=== PATIENT | female | born 1955 | race Caucasian/White ===

== ENCOUNTER → 2020-03-30 09:33 | Outpatient (BNVA) | payer BC, SELFPAY | PROVIDERS: PCP Internal Medicine; Referring Provider Internal Medicine; Visit Provider Internal Medicine | DX: Z76.89 Persons encountering health services in other specified circumstances (principal) ==

== ENCOUNTER 2020-05-10 15:12 | Outpatient (REF) | payer BC, SELFPAY ==
[2020-05-10 15:47] LABS: MANUAL DIFF FLAG NO
[2020-05-10 15:49] LABS: Basophils Percent Auto 0.5 % (0-2); Eosinophils Absolute Auto 0.3 X10*3/uL (0.0-0.4); Eosinophils Percent Auto 3.2 % (0-4); Hematocrit 37.3 % (37-47); Hemoglobin 11.6 g/dl (12.0-16.0); Imm Gran Abs Auto 0.01 X10*3/uL (0.00-0.03); Imm Gran Pct Auto 0.1 % (0.0-0.4); Lymphocytes Absolute Auto 3.4 X10*3/uL (1.2-4.9); Lymphocytes Percent Auto 42.7 % (20-40); Mean Corpuscular HGB Conc 31.1 g/dl (31.0-35.0); Mean Corpuscular Hemoglobin 25.4 pg (27.0-33.0); Mean Corpuscular Volume 81.8 fL (80-98); Mean Platelet Volume 10.6 fL (9.4-12.3); Monocytes Absolute Auto 0.5 X10*3/uL (0.1-1.2); Monocytes Percent Auto 6.5 % (2-11); Neutrophils Absolute Auto 3.8 X10*3/uL (2.0-8.3); Platelet Count 255 X10*3/uL (160-400); Red Blood Count 4.56 X10*6/uL (4.20-5.50); Red Cell Distribution Width 14.6 % (11.0-16.0)
[2020-05-10 16:24] LABS: Alanine Aminotransferase 30 U/L (0-31); Albumin Level 4.2 g/dL (3.5-5.0); Alkaline Phosphatase 74 U/L (39-117); Anion Gap 12 (12-20); Aspartate Amino Transferase 32 U/L (5-31); Bilirubin Total 0.2 mg/dL (0.0-1.0); Blood Urea Nitrogen 25 mg/dL (9-16); C Reactive Protein 0.21 mg/dL (< or = 0.50); Calcium 9.1 mg/dL (8.4-10.2); Carbon Dioxide 29 mmol/L (22-29); Chloride 101 mmol/L (96-108); Cholesterol 226 mg/dL; Estimated Glomerular Filt Rate > 60; Glucose Random 82 mg/dL (60-115); HDL Cholesterol 83 mg/dL; LDL Cholesterol Calculated 123 mg/dl; Potassium 4.5 mmol/l (3.3-5.1); Sodium 137 mmol/L (135-145); Triglycerides 102 mg/dL
[2020-05-10 16:40] LABS: Vitamin D 25-OH Total 18.3 ng/mL (>30)
[2020-05-10 16:44] LABS: Erythrocyte Sedimentation Rate 23 MM/HR (0-20)
== END 2020-05-10 15:13 | disposition home or self-care (01) ==
LOC: HO.LAB 15:12
PROVIDERS: PCP Internal Medicine; Visit Provider Student in an Organized Health Care Education/Training Program
DX: M05.9 Rheumatoid arthritis with rheumatoid factor, unspecified (principal); M81.0 Age-related osteoporosis without current pathological fracture
CPT/HCPCS: 36415; 80053; 80061; 82306; 85025; 85652; 86140

== ENCOUNTER → 2020-07-06 16:22 | Outpatient (BNVA) | payer BC, SELFPAY | PROVIDERS: PCP Internal Medicine; Visit Provider Student in an Organized Health Care Education/Training Program ==

== ENCOUNTER 2020-10-11 09:04 | Outpatient (REF) | payer BC, SELFPAY ==
[2020-10-11 09:45] LABS: MANUAL DIFF FLAG NO
[2020-10-11 09:47] LABS: Basophils Absolute Auto 0.1 X10*3/uL (0.0-0.2); Basophils Percent Auto 0.8 % (0-2); Eosinophils Absolute Auto 0.5 X10*3/uL (0.0-0.4); Eosinophils Percent Auto 6.4 % (0-4); Hematocrit 40.5 % (37-47); Hemoglobin 12.4 g/dl (12.0-16.0); Imm Gran Abs Auto 0.02 X10*3/uL (0.00-0.03); Imm Gran Pct Auto 0.3 % (0.0-0.4); Lymphocytes Absolute Auto 2.1 X10*3/uL (1.2-4.9); Lymphocytes Percent Auto 28.8 % (20-40); Mean Corpuscular HGB Conc 30.6 g/dl (31.0-35.0); Mean Corpuscular Hemoglobin 24.8 pg (27.0-33.0); Mean Platelet Volume 10.3 fL (9.4-12.3); Monocytes Absolute Auto 0.5 X10*3/uL (0.1-1.2); Monocytes Percent Auto 6.3 % (2-11); Neutrophils Absolute Auto 4.2 X10*3/uL (2.0-8.3); Neutrophils Percent Auto 57.4 % (45-73); Platelet Count 270 X10*3/uL (160-400); Red Cell Distribution Width 14.5 % (11.0-16.0); White Blood Count 7.4 X10*3/uL (4.8-10.8)
[2020-10-11 10:20] LABS: Alanine Aminotransferase 13 U/L (0-31); Albumin Level 4.2 g/dL (3.5-5.0); Alkaline Phosphatase 55 U/L (39-117); Anion Gap 11 (12-20); Aspartate Amino Transferase 27 U/L (5-31); Bilirubin Total 0.5 mg/dL (0.0-1.0); Blood Urea Nitrogen 11 mg/dL (9-16); C Reactive Protein 0.07 mg/dL (< or = 0.50); Calcium 9.4 mg/dL (8.4-10.2); Carbon Dioxide 28 mmol/L (22-29); Chloride 105 mmol/L (96-108); Cholesterol 221 mg/dL; Estimated Glomerular Filt Rate > 60; Glucose Random 83 mg/dL (60-115); HDL Cholesterol 83 mg/dL; LDL Cholesterol Calculated 124 mg/dl; Potassium 5.3 mmol/L (3.3-5.1); Sodium 139 mmol/L (135-145); Total Protein 7.1 g/dL (6.5-8.0); Triglycerides 72 mg/dL
[2020-10-11 10:47] LABS: Erythrocyte Sedimentation Rate 12 MM/HR (0-20)
[2020-10-11 10:52] LABS: Reflex LDLD? No
== END 2020-10-11 09:05 | disposition home or self-care (01) ==
LOC: HO.LAB 09:04
PROVIDERS: PCP Internal Medicine; Visit Provider Student in an Organized Health Care Education/Training Program
DX: J44.9 Chronic obstructive pulmonary disease, unspecified (principal)
CPT/HCPCS: 36415; 80053; 80061; 85025; 85652; 86140

== ENCOUNTER 2020-10-15 07:27 | Outpatient (REF) | payer BC, SELFPAY ==
[2020-10-15 09:23] LABS: Uric Acid 5.3 mg/dL (2.4-5.7)
== END 2020-10-15 07:28 | disposition home or self-care (01) ==
LOC: HO.LAB 07:27
PROVIDERS: PCP Internal Medicine; Visit Provider Student in an Organized Health Care Education/Training Program
DX: M05.9 Rheumatoid arthritis with rheumatoid factor, unspecified (principal); M81.0 Age-related osteoporosis without current pathological fracture; M10.9 Gout, unspecified; Z79.899 Other long term (current) drug therapy
CPT/HCPCS: 36415; 84550

== ENCOUNTER 2021-01-13 15:01 | Outpatient (REF) | payer BC, SELFPAY ==
--- NOTE | ~2021-01-13 | MM_ITS ---
EXAMINATION: BONE DENSITOMETRY CLINICAL INDICATION: Rheumatoid arthritis. COMPARISON: None (current study represents initial baseline exam). TECHNIQUE: Using a [employer] DXA System (software version: 13.1) manufactured by [employer], dual-energy x-ray absorptiometry was performed of the lumbar spine and left hip. The images are of good technical quality. Summary results are attached. FINDINGS: AP SPINE L2-L4 (excluding L1): The data of L1-L4 has been changed to exclude the L1 vertebral body, because degenerative changes at this level may cause overestimation of lumbar spine density. BMD 1.133 g/cm2, Z-score 1.2, T-score -0.6, normal. LEFT FEMUR, NECK: BMD 0.727 g/cm2, Z-score -0.6, T-score -2.2, osteopenia. LEFT FEMUR, TOTAL: BMD 0.770 g/cm2, Z-score -0.5, T-score -1.9, osteopenia. IDENTIFIED RISK FACTORS: Menopause, height loss, osteoporosis, family history (parent hip fracture), rheumatoid arthritis. HISTORY OF FRACTURE: None listed. MEDICATIONS: Vitamin D. MM/XR DEXA axial skeleton IMPRESSION: 1. DIAGNOSIS: Osteopenia based on the lowest T-score value of -2.2 in the femoral neck applying World Health Organization criteria. 2. 10-YEAR FRACTURE RISK PREDICTION, FRAX: Major osteoporotic fracture (clinical spine, forearm, hip or shoulder) 26.4%. Hip fracture 5.3%. 3. Treatment Recommendations: NOF guidelines recommend consideration for treatment in postmenopausal women and men age 50 and older presenting with the following: -A hip or vertebral (clinical or morphometric) fracture. -T-score less than or equal to -2.5 at the femoral neck or spine after appropriate evaluation to exclude secondary causes. -Low bone mass at the hip or spine and a 10-year fracture probability by FRAX of greater than or equal to 3% for hip fracture or greater than or equal to 20% for major osteoporotic fracture based on the [place] adapted WHO algorithm. 4. Other Recommendations: All treatment decisions require clinical judgment and consideration of individual patient factors, including patient preferences, comorbidities, previous drug use, risk factors not captured in the FRAX model (e.g. frailty, falls, vitamin D deficiency, increased bone turnover, interval significant decline in bone density) and possible under or overestimation of fracture risk by FRAX. Additional medical evaluation for secondary cause of low bone mineral density may be appropriate. FUTURE SCAN RECOMMENDATION: People with diagnosed cases of osteoporosis or at high risk for fracture should have regular bone mineral density tests. For patients eligible for Medicare, routine testing is allowed once every 2 years. The testing frequency can be increased to one year for patients who have rapidly progressing disease, those who are receiving or discontinuing medical therapy to restore bone mass, or have additional risk factors.
[2021-01-13 15:53] LABS: MANUAL DIFF FLAG NO
[2021-01-13 16:06] LABS: Basophils Absolute Auto 0.1 X10*3/uL (0.0-0.2); Basophils Percent Auto 0.3 % (0-2); Eosinophils Absolute Auto 0.2 X10*3/uL (0.0-0.4); Eosinophils Percent Auto 0.9 % (0-4); Hematocrit 34.4 % (37-47); Hemoglobin 10.9 g/dl (12.0-16.0); Imm Gran Abs Auto 0.07 X10*3/uL (0.00-0.03); Imm Gran Pct Auto 0.4 % (0.0-0.4); Lymphocytes Absolute Auto 2.6 X10*3/uL (1.2-4.9); Lymphocytes Percent Auto 14.2 % (20-40); Mean Corpuscular HGB Conc 31.7 g/dl (31.0-35.0); Mean Corpuscular Hemoglobin 25.8 pg (27.0-33.0); Mean Corpuscular Volume 81.3 fL (80-98); Mean Platelet Volume 10.1 fL (9.4-12.3); Monocytes Absolute Auto 1.3 X10*3/uL (0.1-1.2); Monocytes Percent Auto 7.1 % (2-11); Neutrophils Absolute Auto 14.1 X10*3/uL (2.0-8.3); Neutrophils Percent Auto 77.1 % (45-73); Platelet Count 275 X10*3/uL (160-400); Red Blood Count 4.23 X10*6/uL (4.20-5.50); Red Cell Distribution Width 14.9 % (11.0-16.0); White Blood Count 18.3 X10*3/uL (4.8-10.8)
[2021-01-13 16:21] LABS: Alanine Aminotransferase 21 U/L (0-31); Albumin Level 4.1 g/dL (3.5-5.0); Alkaline Phosphatase 51 U/L (39-117); Anion Gap 11 (12-20); Aspartate Amino Transferase 24 U/L (5-31); Bilirubin Total 0.5 mg/dL (0.0-1.0); Blood Urea Nitrogen 17 mg/dL (9-16); C Reactive Protein 2.77 mg/dL (< or = 0.50); Calcium 9.3 mg/dL (8.4-10.2); Carbon Dioxide 28 mmol/L (22-29); Chloride 104 mmol/L (96-108); Estimated Glomerular Filt Rate > 60; Glucose Random 100 mg/dL (60-115); Potassium 5.2 mmol/L (3.3-5.1); Sodium 138 mmol/L (135-145); Total Protein 6.8 g/dL (6.5-8.0)
[2021-01-13 16:57] LABS: Erythrocyte Sedimentation Rate 18 MM/HR (0-20)
== END 2021-01-13 15:02 | disposition home or self-care (01) ==
LOC: HO.MAMMO 15:01
PROVIDERS: PCP Student in an Organized Health Care Education/Training Program; Visit Provider Student in an Organized Health Care Education/Training Program
DX: Z13.820 Encounter for screening for osteoporosis (principal); Z78.0 Asymptomatic menopausal state; M05.9 Rheumatoid arthritis with rheumatoid factor, unspecified; Z79.899 Other long term (current) drug therapy
CPT/HCPCS: 36415; 77080; 80053; 85025; 85652; 86140

== ENCOUNTER → 2021-01-18 07:46 | Outpatient (BNVA) | payer BC, SELFPAY | PROVIDERS: PCP Internal Medicine; Visit Provider Nurse Practitioner Family ==

== ENCOUNTER 2021-01-18 08:35 | Outpatient (REF) | payer BC, SELFPAY ==
--- NOTE | ~2021-01-18 | US_ITS ---
EXAMINATION: US VENOUS ULTRASOUND WITH DOPPLER LOWER EXTREMITY, LEFT CLINICAL INFORMATION: Pain and swelling COMPARISON: None TECHNIQUE: Ultrasound of the deep veins is performed from the hip to the calf with compression sonography and color and pulse Doppler assessment. Spectral analysis with color-flow imaging is performed. FINDINGS: There is normal venous compression and respiratory variation and augmented flow. The visualized common femoral vein, superficial femoral vein, profunda femoral vein, popliteal vein, and the trifurcation region shows no evidence of deep venous thrombosis. There is a small Delgadillo's cyst measuring 1.6 x 0.7 x 2.7 cm. There is a small complex fluid collection measuring 1.6 x 0.8 x 1 cm adjacent to the gastrocnemius muscle. US/US venous duplex LE LT IMPRESSION: No DVT demonstrated in the left lower extremity. Small Delgadillo's cyst and small amount of fluid adjacent to the gastrocnemius muscle.
[2021-01-18 09:47] LABS: MANUAL DIFF FLAG NO
[2021-01-18 09:56] LABS: Basophils Percent Auto 0.4 % (0-2); Eosinophils Absolute Auto 0.2 X10*3/uL (0.0-0.4); Eosinophils Percent Auto 3.3 % (0-4); Hematocrit 33.7 % (37-47); Hemoglobin 10.6 g/dl (12.0-16.0); Imm Gran Abs Auto 0.02 X10*3/uL (0.00-0.03); Imm Gran Pct Auto 0.3 % (0.0-0.4); Lymphocytes Absolute Auto 1.7 X10*3/uL (1.2-4.9); Lymphocytes Percent Auto 23.9 % (20-40); Mean Corpuscular HGB Conc 31.5 g/dl (31.0-35.0); Mean Corpuscular Hemoglobin 25.5 pg (27.0-33.0); Mean Platelet Volume 10.1 fL (9.4-12.3); Monocytes Absolute Auto 0.8 X10*3/uL (0.1-1.2); Monocytes Percent Auto 10.6 % (2-11); Neutrophils Absolute Auto 4.4 X10*3/uL (2.0-8.3); Neutrophils Percent Auto 61.5 % (45-73); Platelet Count 258 X10*3/uL (160-400); Red Blood Count 4.16 X10*6/uL (4.20-5.50); Red Cell Distribution Width 14.6 % (11.0-16.0); White Blood Count 7.2 X10*3/uL (4.8-10.8)
== END 2021-01-18 08:36 | disposition home or self-care (01) ==
LOC: HO.US 08:35
PROVIDERS: PCP Internal Medicine; Visit Provider Nurse Practitioner Family
DX: M79.662 Pain in left lower leg (principal); M05.9 Rheumatoid arthritis with rheumatoid factor, unspecified; M81.0 Age-related osteoporosis without current pathological fracture
CPT/HCPCS: 36415; 85025; 93971

== ENCOUNTER 2021-01-28 12:34 | Outpatient (REF) | payer BC, SELFPAY ==
--- NOTE | ~2021-01-28 | XR_ITS ---
EXAMINATION: X-RAY OF THE LEFT KNEE. CLINICAL INFORMATION: Pain in the left knee. 65-year-old female. COMPARISON: None TECHNIQUE: AP standing views of both knees, lateral and sunrise views of the left knee. FINDINGS: There is a small suprapatellar joint effusion of the left knee. Alignment is maintained. The articular surfaces of both knees are well preserved. Patellofemoral alignment is normal. Arterial vascular calcification is present in the proximal left calf. XR/XR knee standing BI IMPRESSION: Small joint effusion, left knee.
--- NOTE | ~2021-01-28 | XR_ITS ---
EXAMINATION: X-RAY OF THE LEFT KNEE. CLINICAL INFORMATION: Pain in the left knee. 65-year-old female. COMPARISON: None TECHNIQUE: AP standing views of both knees, lateral and sunrise views of the left knee. FINDINGS: There is a small suprapatellar joint effusion of the left knee. Alignment is maintained. The articular surfaces of both knees are well preserved. Patellofemoral alignment is normal. Arterial vascular calcification is present in the proximal left calf. XR/XR knee LT 2V IMPRESSION: Small joint effusion, left knee.
== END 2021-01-28 12:35 | disposition home or self-care (01) ==
LOC: HO.HOSX 12:34
PROVIDERS: Visit Provider Physician Assistant
DX: M17.12 Unilateral primary osteoarthritis, left knee (principal); M25.561 Pain in right knee
CPT/HCPCS: 73560; 73565

== ENCOUNTER → 2021-03-09 13:46 | Outpatient (BNVA) | payer BC, SELFPAY | PROVIDERS: Visit Provider Physician Assistant | DX: M17.12 Unilateral primary osteoarthritis, left knee (principal) | CPT/HCPCS: 20610; J1040 ==

== ENCOUNTER 2021-05-10 11:07 | Outpatient (REF) | payer BC, SELFPAY ==
--- NOTE | ~2021-05-10 | XR_ITS ---
EXAMINATION: XR CHEST CLINICAL INFORMATION: R06.00 - Dyspnea, unspecified COMPARISON: Chest radiographs 05/11/2013; CT abdomen 05/11/2013 TECHNIQUE: 2 views of the chest were obtained. FINDINGS: There is no lobar or segmental airspace consolidation or definite groundglass opacity. Small sliding hiatal hernia is again seen, similar to CT abdomen 2013. The heart is normal in size. The vascularity is normal. The costophrenic sulci are clear. There is no hyperinflation. The hilar and mediastinal contours are unremarkable. No acute bony abnormality. XR/XR chest 2V IMPRESSION: Unremarkable examination.
[2021-05-10 12:47] LABS: MANUAL DIFF FLAG NO
[2021-05-10 12:51] LABS: Basophils Absolute Auto 0.1 X10*3/uL (0.0-0.2); Basophils Percent Auto 0.6 % (0-2); Eosinophils Absolute Auto 0.4 X10*3/uL (0.0-0.4); Hematocrit 40.8 % (37.0-47.0); Hemoglobin 12.6 g/dl (12.0-16.0); Imm Gran Abs Auto 0.01 X10*3/uL (0.00-0.03); Imm Gran Pct Auto 0.1 % (0.0-0.4); Lymphocytes Absolute Auto 1.6 X10*3/uL (1.2-4.9); Lymphocytes Percent Auto 19.5 % (20-40); Mean Corpuscular HGB Conc 30.9 g/dl (31.0-35.0); Mean Corpuscular Hemoglobin 25.7 pg (27.0-33.0); Mean Corpuscular Volume 83.1 fL (80.0-98.0); Mean Platelet Volume 9.8 fL (9.4-12.3); Monocytes Absolute Auto 0.5 X10*3/uL (0.1-1.2); Monocytes Percent Auto 6.4 % (2-11); Neutrophils Absolute Auto 5.4 x10*3/uL (2.0-8.3); Neutrophils Percent Auto 68.4 % (45-73); Platelet Count 173 X10*3/uL (160-400); Red Blood Count 4.91 X10*6/uL (4.20-5.50); Red Cell Distribution Width 17.2 % (11.0-16.0); White Blood Count 7.9 X10*3/uL (4.8-10.8)
[2021-05-10 13:23] LABS: Alanine Aminotransferase 25 U/L (0-31); Alkaline Phosphatase 50 U/L (39-117); Anion Gap 11 (12-20); Aspartate Amino Transferase 22 U/L (5-31); Bilirubin Total 0.3 mg/dL (0.0-1.0); Blood Urea Nitrogen 8 mg/dL (9-16); C Reactive Protein 0.65 mg/dL (< or = 0.50); Calcium 8.4 mg/dL (8.4-10.2); Carbon Dioxide 25 mmol/L (22-29); Chloride 109 mmol/L (96-108); Estimated Glomerular Filt Rate > 60; Glucose Random 84 mg/dL (60-115); Potassium 4.6 mmol/L (3.3-5.1); Sodium 140 mmol/L (135-145); Total Protein 6.6 g/dL (6.5-8.0)
[2021-05-10 13:43] LABS: Erythrocyte Sedimentation Rate 14 MM/HR (0-20)
== END 2021-05-10 11:08 | disposition home or self-care (01) ==
LOC: HO.LAB 11:07
PROVIDERS: Absent Provider Nurse Practitioner Family; PCP Internal Medicine; Visit Provider Internal Medicine
DX: J44.9 Chronic obstructive pulmonary disease, unspecified (principal); M05.9 Rheumatoid arthritis with rheumatoid factor, unspecified; Z87.891 Personal history of nicotine dependence; Z79.899 Other long term (current) drug therapy
CPT/HCPCS: 36415; 71046; 80053; 85025; 85652; 86140

== ENCOUNTER → 2021-05-11 09:54 | Outpatient (BNVA) | payer BC, SELFPAY | PROVIDERS: PCP Internal Medicine; Visit Provider Nurse Practitioner Family ==

== ENCOUNTER 2021-08-19 10:35 | Outpatient (REF) | payer BC, SELFPAY ==
[2021-08-19 12:51] LABS: Cholesterol 177 mg/dL; HDL Cholesterol 54 mg/dL; LDL Cholesterol Calculated 106 mg/dl; Triglycerides 86 mg/dL
[2021-08-19 13:05] LABS: HBS Num1 1.46 mIU/mL (0-7.99); HBc Num1 0.12 S/CO (0.00-0.79); HBsAGNum1 0.24 S/CO (0.00-0.99); Hepatitis B Core Antibody Nonreactive (Nonreactive); Hepatitis B Surface Antigen Negative (Negative); ~Hepatitis B Surface Antibody NONREACTIVE (Nonreactive)
[2021-08-19 13:12] LABS: Hepatitis A Antibody IgM 0.18 Index (0-0.79); ~Hepatitis A Antibody IgM Nonreactive (Nonreactive); ~Hepatitis C Antibody Nonreactive (Nonreactive)
[2021-08-19 13:31] LABS: Reflex LDLD? No
== END 2021-08-19 10:36 | disposition home or self-care (01) ==
LOC: HO.LAB 10:35
PROVIDERS: Nurse Practitioner Family; PCP Internal Medicine; Visit Provider Physician Assistant
DX: M17.12 Unilateral primary osteoarthritis, left knee (principal); M05.9 Rheumatoid arthritis with rheumatoid factor, unspecified
CPT/HCPCS: 20610; 36415; 80061; 86481; 86704; 86706; 86709; 86803; 87340; J1040

== ENCOUNTER 2021-08-30 | Outpatient (REF) | payer BC, SELFPAY ==
[2021-09-01 23:22] LABS: TS Negative Control Passed; TS Panel A 0; TS Panel B 1; TS Positive Control Passed; TSpotTB Negative (Negative)
== END 2021-08-30 00:01 | disposition home or self-care (01) ==
LOC: HO.LAB
PROVIDERS: Visit Provider Nurse Practitioner Family
DX: M05.9 Rheumatoid arthritis with rheumatoid factor, unspecified (principal)
CPT/HCPCS: 36415; 86481

== ENCOUNTER → 2021-08-30 11:07 | Outpatient (BNVA) | payer BC, SELFPAY | PROVIDERS: PCP Internal Medicine; Visit Provider Internal Medicine | DX: Z13.89 Encounter for screening for other disorder (principal) ==

== ENCOUNTER → 2021-09-02 12:21 | Outpatient (BNVA) | payer BC, SELFPAY | PROVIDERS: PCP Internal Medicine; Visit Provider Nurse Practitioner Family | DX: Z13.89 Encounter for screening for other disorder (principal) ==

== ENCOUNTER 2021-11-10 09:59 | Outpatient (REF) | payer BC, SELFPAY ==
[2021-11-10 10:52] LABS: MANUAL DIFF FLAG NO
[2021-11-10 11:27] LABS: Basophils Percent Auto 0.6 % (0-2); Eosinophils Absolute Auto 0.2 X10*3/uL (0.0-0.4); Eosinophils Percent Auto 2.5 % (0-4); Hematocrit 38.7 % (37.0-47.0); Hemoglobin 12.3 g/dl (12.0-16.0); Imm Gran Abs Auto 0.02 X10*3/uL (0.00-0.03); Imm Gran Pct Auto 0.3 % (0.0-0.4); Lymphocytes Absolute Auto 1.7 X10*3/uL (1.2-4.9); Lymphocytes Percent Auto 23.6 % (20-40); Mean Corpuscular HGB Conc 31.8 g/dl (31.0-35.0); Mean Corpuscular Hemoglobin 26.4 pg (27.0-33.0); Mean Platelet Volume 9.8 fL (9.4-12.3); Monocytes Absolute Auto 0.5 X10*3/uL (0.1-1.2); Monocytes Percent Auto 7.2 % (2-11); Neutrophils Absolute Auto 4.8 x10*3/uL (2.0-8.3); Neutrophils Percent Auto 65.8 % (45-73); Platelet Count 245 X10*3/uL (160-400); Red Blood Count 4.66 X10*6/uL (4.20-5.50); Red Cell Distribution Width 13.9 % (11.0-16.0); White Blood Count 7.2 X10*3/uL (4.8-10.8)
[2021-11-10 12:09] LABS: Alanine Aminotransferase 14 U/L (0-31); Albumin Level 3.9 g/dL (3.5-5.0); Alkaline Phosphatase 46 U/L (39-117); Anion Gap 11 (12-20); Anion Gap 9 (12-20); Aspartate Amino Transferase 23 U/L (5-31); Bilirubin Total 0.3 mg/dL (0.0-1.0); Blood Urea Nitrogen 13 mg/dL (9-16); C Reactive Protein 0.62 mg/dL (< or = 0.50); Calcium 8.6 mg/dL (8.4-10.2); Calcium 8.8 mg/dL (8.4-10.2); Carbon Dioxide 27 mmol/L (22-29); Carbon Dioxide 28 mmol/L (22-29); Chloride 104 mmol/L (96-108); Chloride 105 mmol/L (96-108); Cholesterol 201 mg/dL; Estimated Glomerular Filt Rate > 60; Glucose Random 81 mg/dL (60-115); HDL Cholesterol 70 mg/dL; LDL Cholesterol Calculated 122 mg/dl; Potassium 4.9 mmol/L (3.3-5.1); Potassium 5.1 mmol/L (3.3-5.1); Sodium 136 mmol/L (135-145); Sodium 138 mmol/L (135-145); Total Protein 6.4 g/dL (6.5-8.0); Triglycerides 49 mg/dL
[2021-11-10 12:28] LABS: Erythrocyte Sedimentation Rate 18 MM/HR (0-20)
[2021-11-13 13:43] LABS: TS Negative Control Passed; TS Panel A 0; TS Panel B 1; TS Positive Control Passed; TSpotTB Negative (Negative)
== END 2021-11-10 10:00 | disposition home or self-care (01) ==
LOC: HO.LAB 09:59
PROVIDERS: Absent Provider Internal Medicine; PCP Internal Medicine; Visit Provider Nurse Practitioner Family
DX: Z11.1 Encounter for screening for respiratory tuberculosis (principal); E78.00 Pure hypercholesterolemia, unspecified; M05.9 Rheumatoid arthritis with rheumatoid factor, unspecified; R05.9 Cough, unspecified
CPT/HCPCS: 36415; 80048; 80053; 80061; 82306; 84450; 84460; 85025; 85652; 86140; 86481

== ENCOUNTER → 2021-12-19 13:39 | Outpatient (BNVA) | payer BC, SELFPAY | PROVIDERS: PCP Internal Medicine; Visit Provider Physician Assistant | DX: M17.12 Unilateral primary osteoarthritis, left knee (principal) | CPT/HCPCS: 20610; J1040 ==

== ENCOUNTER 2022-03-08 10:19 | Outpatient (REF) | payer BC, SELFPAY ==
[2022-03-08 10:31] LABS: MANUAL DIFF FLAG NO
[2022-03-08 10:47] LABS: Basophils Absolute Auto 0.1 X10*3/uL (0.0-0.2); Basophils Percent Auto 0.6 % (0-2); Eosinophils Absolute Auto 0.2 X10*3/uL (0.0-0.4); Eosinophils Percent Auto 1.9 % (0-4); Hematocrit 39.3 % (37.0-47.0); Hemoglobin 12.4 g/dl (12.0-16.0); Imm Gran Abs Auto 0.04 X10*3/uL (0.00-0.03); Imm Gran Pct Auto 0.4 % (0.0-0.4); Lymphocytes Absolute Auto 1.7 X10*3/uL (1.2-4.9); Lymphocytes Percent Auto 18.8 % (20-40); Mean Corpuscular HGB Conc 31.6 g/dl (31.0-35.0); Mean Corpuscular Hemoglobin 26.5 pg (27.0-33.0); Monocytes Absolute Auto 0.6 X10*3/uL (0.1-1.2); Monocytes Percent Auto 6.7 % (2-11); Neutrophils Absolute Auto 6.6 x10*3/uL (2.0-8.3); Neutrophils Percent Auto 71.6 % (45-73); Platelet Count 341 X10*3/uL (160-400); Red Blood Count 4.68 X10*6/uL (4.20-5.50); White Blood Count 9.3 X10*3/uL (4.8-10.8)
[2022-03-08 11:14] LABS: Alanine Aminotransferase 14 U/L (0-31); Alkaline Phosphatase 55 U/L (39-117); Anion Gap 14 (12-20); Aspartate Amino Transferase 17 U/L (5-31); Bilirubin Total 0.4 mg/dL (0.0-1.0); Blood Urea Nitrogen 10 mg/dL (9-16); C Reactive Protein 8.22 mg/dL (< or = 0.50); Calcium 9.2 mg/dL (8.4-10.2); Carbon Dioxide 26 mmol/L (22-29); Chloride 102 mmol/L (96-108); Estimated Glomerular Filt Rate > 60; Glucose Random 93 mg/dL (60-115); Sodium 137 mmol/L (135-145); Total Protein 6.9 g/dL (6.5-8.0)
[2022-03-08 11:24] LABS: Erythrocyte Sedimentation Rate 78 MM/HR (0-20)
== END 2022-03-08 10:20 | disposition home or self-care (01) ==
LOC: HO.LAB 10:19
PROVIDERS: Visit Provider Nurse Practitioner Family
DX: M05.9 Rheumatoid arthritis with rheumatoid factor, unspecified (principal)
CPT/HCPCS: 36415; 80053; 85025; 85652; 86140

== ENCOUNTER 2022-04-19 08:46 | Outpatient (REF) | payer BC, SELFPAY ==
[2022-04-19 10:31] LABS: MANUAL DIFF FLAG NO
[2022-04-19 10:45] LABS: Basophils Absolute Auto 0.1 X10*3/uL (0.0-0.2); Basophils Percent Auto 0.8 % (0-2); Eosinophils Absolute Auto 0.3 X10*3/uL (0.0-0.4); Eosinophils Percent Auto 3.1 % (0-4); Hematocrit 37.2 % (37.0-47.0); Hemoglobin 11.7 g/dl (12.0-16.0); Imm Gran Abs Auto 0.02 X10*3/uL (0.00-0.03); Imm Gran Pct Auto 0.2 % (0.0-0.4); Lymphocytes Absolute Auto 1.6 X10*3/uL (1.2-4.9); Mean Corpuscular HGB Conc 31.5 g/dl (31.0-35.0); Mean Corpuscular Hemoglobin 26.4 pg (27.0-33.0); Mean Corpuscular Volume 83.8 fL (80.0-98.0); Mean Platelet Volume 10.7 fL (9.4-12.3); Monocytes Absolute Auto 0.5 X10*3/uL (0.1-1.2); Monocytes Percent Auto 6.2 % (2-11); Neutrophils Absolute Auto 5.9 x10*3/uL (2.0-8.3); Neutrophils Percent Auto 70.7 % (45-73); Platelet Count 324 X10*3/uL (160-400); Red Blood Count 4.44 X10*6/uL (4.20-5.50); Red Cell Distribution Width 14.1 % (11.0-16.0); White Blood Count 8.4 X10*3/uL (4.8-10.8)
[2022-04-19 11:37] LABS: Erythrocyte Sedimentation Rate 26 MM/HR (0-20)
[2022-04-19 12:07] LABS: Alanine Aminotransferase 15 U/L (0-31); Aspartate Amino Transferase 23 U/L (5-31); C Reactive Protein 0.25 mg/dL (< or = 0.50); Cholesterol 192 mg/dL; Estimated Glomerular Filt Rate > 60; HDL Cholesterol 75 mg/dL; LDL Cholesterol Calculated 107 mg/dl; Triglycerides 53 mg/dL
[2022-04-19 12:28] LABS: Vitamin D 25-OH Total 42.1 ng/mL (>30)
[2022-04-19 14:43] LABS: Reflex LDLD? No
== END 2022-04-19 08:47 | disposition home or self-care (01) ==
LOC: HO.10HDL 08:46
PROVIDERS: Visit Provider Nurse Practitioner Family
DX: M05.9 Rheumatoid arthritis with rheumatoid factor, unspecified (principal); Z79.899 Other long term (current) drug therapy
CPT/HCPCS: 36415; 80061; 82306; 82565; 84450; 84460; 85025; 85652; 86140

== ENCOUNTER → 2022-07-06 14:44 | Outpatient (BNVA) | payer BC, SELFPAY | PROVIDERS: PCP Internal Medicine; Visit Provider Internal Medicine | DX: Z13.89 Encounter for screening for other disorder (principal) ==

== ENCOUNTER 2022-07-19 09:04 | Outpatient (REF) | payer BC, SELFPAY ==
--- NOTE | ~2022-07-19 | XR_ITS ---
EXAMINATION: XR ELBOW, LEFT CLINICAL INFORMATION: Effusion left elbow. COMPARISON: None available. TECHNIQUE: AP, lateral, and oblique views of the left elbow. FINDINGS: There is no visible acute fracture, dislocation, loose bodies or joint effusion. There is a soft tissue swelling posterior elbow likely olecranon bursitis. XR/XR elbow LT 2V IMPRESSION: Soft tissue swelling posterior elbow likely olecranon bursitis. Otherwise unremarkable.
--- NOTE | ~2022-07-19 | XR_ITS ---
EXAMINATION: XR HIP, RIGHT CLINICAL INFORMATION: Right hip pain. COMPARISON: None available. TECHNIQUE: Two views of the right hip. FINDINGS: The right hip joint space is maintained normal. No visible acute fracture, dislocation or subluxation seen. No bony erosive changes. The soft tissues are normal. XR/XR hip RT min 2V IMPRESSION: Unremarkable right hip exam.
[2022-07-19 11:05] LABS: MANUAL DIFF FLAG NO
[2022-07-19 11:54] LABS: Basophils Absolute Auto 0.1 X10*3/uL (0.0-0.2); Basophils Percent Auto 1.1 % (0-2); Eosinophils Absolute Auto 0.3 X10*3/uL (0.0-0.4); Eosinophils Percent Auto 3.5 % (0-4); Hematocrit 36.5 % (37.0-47.0); Imm Gran Abs Auto 0.03 X10*3/uL (0.00-0.03); Imm Gran Pct Auto 0.4 % (0.0-0.4); Lymphocytes Absolute Auto 1.8 X10*3/uL (1.2-4.9); Lymphocytes Percent Auto 23.9 % (20-40); Mean Corpuscular HGB Conc 30.1 g/dl (31.0-35.0); Mean Corpuscular Hemoglobin 23.6 pg (27.0-33.0); Mean Corpuscular Volume 78.2 fL (80.0-98.0); Mean Platelet Volume 10.8 fL (9.4-12.3); Monocytes Absolute Auto 0.5 X10*3/uL (0.1-1.2); Monocytes Percent Auto 6.6 % (2-11); Neutrophils Absolute Auto 4.9 x10*3/uL (2.0-8.3); Neutrophils Percent Auto 64.5 % (45-73); Platelet Count 317 X10*3/uL (160-400); Red Blood Count 4.67 X10*6/uL (4.20-5.50); Red Cell Distribution Width 15.2 % (11.0-16.0); White Blood Count 7.5 X10*3/uL (4.8-10.8)
[2022-07-19 12:10] LABS: Erythrocyte Sedimentation Rate 20 MM/HR (0-20)
[2022-07-19 12:15] LABS: Alanine Aminotransferase 19 U/L (0-31); Alkaline Phosphatase 47 U/L (39-117); Anion Gap 11 (12-20); Aspartate Amino Transferase 28 U/L (5-31); Bilirubin Total 0.3 mg/dL (0.0-1.0); Blood Urea Nitrogen 9 mg/dL (9-16); C Reactive Protein 0.34 mg/dL (< or = 0.50); Calcium 8.9 mg/dL (8.4-10.2); Carbon Dioxide 28 mmol/L (22-29); Chloride 105 mmol/L (96-108); Estimated Glomerular Filt Rate > 60; Glucose Random 84 mg/dL (60-115); Potassium 5.3 mmol/L (3.3-5.1); Sodium 139 mmol/L (135-145); Total Protein 6.6 g/dL (6.5-8.0)
[2022-07-19 12:17] LABS: Vitamin D 25-OH Total 39.3 ng/mL (>30)
[2022-07-19 12:46] LABS: Amphetamine Screen Urine Not Detected (Not Detect); Barbiturates, Urine Not Detected (Not Detect); Benzodiazepines Screen Urine Not Detected (Not Detect); Cannabinoid Screen Urine Not Detected (Not Detect); Cocaine Screen Urine Not Detected (Not Detect); Fentanyl, urine Not Detected (Not Detect); Opiate Screen Urine Not Detected (Not Detect); Phencyclidine Screen Urine Not Detected (Not Detect)
== END 2022-07-19 09:05 | disposition home or self-care (01) ==
LOC: HO.XRAY 09:04
PROVIDERS: PCP Internal Medicine; Visit Provider Nurse Practitioner Family
DX: M25.422 Effusion, left elbow (principal); M25.551 Pain in right hip; M05.9 Rheumatoid arthritis with rheumatoid factor, unspecified; E55.9 Vitamin D deficiency, unspecified; M70.22 Olecranon bursitis, left elbow; M81.0 Age-related osteoporosis without current pathological fracture; R13.10 Dysphagia, unspecified; Z79.899 Other long term (current) drug therapy
CPT/HCPCS: 73070; 73502; 80053; 80307; 80373; 82306; 85025; 85652; 86140

== ENCOUNTER 2023-03-05 10:44 | Outpatient (AMB) | payer BC, SELFPAY ==
--- NOTE | 2023-03-05 10:45 | MHC.OFFVIS ---
Intake Vital Signs 03/05/23 10:47 Height 4 ft 11 in Weight 143 lb 4.807 oz BMI 28.9 BP 100/66 Blood Pressure Location Lt brachial Position Sitting Pulse 72 Pulse Source Pulse Oximeter Temp 97.4 F Temp Source Skin Pulse Oximetry (%) 98 Oxygen Delivery Method Room Air Intake Visit Reasons: RA Intake Note: Patient presents today to follow up on RA. Patient Financial Representative Required: No Accompanied by: Self / Same As Patient Allergies codeine Allergy (Unknown, Verified 03/05/23 10:49) Rash latex [LATEX] Allergy (Unknown, Verified 03/05/23 10:49) ANGIOEDEMA morphine Allergy (Unknown, Verified 03/05/23 10:49) Vomiting penicillin V Allergy (Unknown, Verified 03/05/23 10:49) Unknown HPI HPI Comments History of Present Illness Details The patient returns today for evaluation of her rheumatoid arthritis, osteoarthritis, and osteoporosis. She remains on Xeljanz 11 mg daily, tramadol 50 mg tablets taking 1 or 2 b.i.d., alendronate 70 mg weekly, naproxen 500 mg b.i.d. p.r.n., and topical diclofenac gel on her hands if needed. She does not notice significant sedation with the tramadol. The patient has had a bit more low back, knee pain, and left shoulder pain in the past few months. She has prior fractures in the ankles and the wrists. She also has had surgery on the right hand she says 5 times. This was apparently a fusion followed by efforts at tendon repairs which were partially successful. She does not notice any side effects with the Xeljanz but admits she has not had any lab work in 6 months. She stopped smoking she said about 4 years ago. She has been on the alendronate since 2020. She has not had any recent fractures. [facility] Medical History COPD (chronic obstructive pulmonary disease) Cough Dyspnea on exertion Seropositive rheumatoid arthritis Surgical History History of hand surgery History of bunionectomy History of appendectomy Family History Mother HTN (hypertension) Father CVD (cardiovascular disease) Maternal Grandmother Cervical cancer Social History (Updated 03/05/23 @ 10:48 by MELISSA Maza) Alcohol intake: current Alcohol intake frequency: holidays/special occasions only Patient Tobacco Use Status: Former Tobacco user Tobacco use type: Cigarette Cigarettes Per Day: 10 Years Smoked: 48 quit 2years ago e-Cigarette/Vaping Use: Never Used Current occupational status: retired Review of Systems Const Details: Some weight gain since smoking cessation. Negative for appetite change, fever, chills, malaise and fatigue Eyes Details: Negative for vision change, dry eyes,headaches and dizziness ENT Details: Negative for hearing change, tinnitus, oral ulcer, nose bleeds and oral dryness. Card Details: Negative chest pain, edema and syncope Resp Details: Negative for SOB, cough and wheezing GI Details: Occasional heartburn. She tends to avoid taking the NSAIDs because of that problem. Negative indigestion/heartburn, nausea, abdominal pain, bowel changes, diarrhea, constipation and bloody stool. Skin/Breast Details: Negative for itching, rash, hives, Raynaud's symptoms, sun sensitivity, and skin cancer Neuro Details: Negative for epilepsy, palsy, stroke, changes in speech, tingling and weakness Psych Details: anxiety, depression seem stable with current treatment. Endo Details: Negative for polyuria and polydypsia Mc/Lymph Details: Negative for excessive bruising or bleeding. Physical Exam Vital Signs: Last Vital Signs Temp 97.4 F 03/05/23 10:47 Pulse 72 03/05/23 10:47 BP 100/66 03/05/23 10:47 Pulse Ox 98 03/05/23 10:47 Oxygen Delivery Method Room Air 03/05/23 10:47 BMI result Body Mass Index 28.9 APPEARANCE: Patient in no acute distress EYES no redness, pupils equal and reactive to light, eyelids normal EXTREMITIES: No edema, no calf tenderness, normal peripheral pulses. JOINT EXAM:?? Cervical Spine: Full range of motion without pain; no tenderness. Thoracic Spine:? No tenderness on palpation. She has some scoliosis. Lumbar Spine:? Full range of motion with mild pain with flexion at 75 degrees. There is some paraspinal muscle tenderness Hands: LEFT: Mild thickening at the 1st 3 MCP joints where there is mild tenderness. There is slight swelling of the 1st 3 MCP joints and these are mildly tender. I do not detect any sensory loss or thenar atrophy. RIGHT: There is thickening at the 1st 3 MCP joints. These are mildly tender although the 1st has been fused. Also fused is the thumb IP joint. Surgical scars are well healed with no signs of infection. She has difficulty opposing the thumb to the 2nd and 3rd fingers. st. Wrists:? LEFT: Limited extension to 30 degrees and to 60 degrees flexion. There is some dorsal prominence suggesting swelling and or subluxation. The wrist has mild tenderness but no erythema or warmth. RIGHT: Right wrist is fixed, previous surgical fusion, bony prominence noted in the center of the dorsal aspect of the hand is a longitudinal so its a structure consistent with surgical hardware. It is not tender. There is no swelling erythema or warmth Healed scar noted over the wrist and dorsum of the hand. Elbows: LEFT: Full range of motion. Tenderness to palpation over lateral epicondyle. Soft tissue swelling noted over the olecranon, no erythema, warmth or tenderness of this area. RIGHT: Full range of motion. Tenderness to palpation over the lateral epicondyle. No swelling, increased warmth or erythema. Shoulders:?? Full range of motion without pain. No tenderness, weakness, swelling, increased warmth or erythema. Hips: LEFT: Full range of motion without pain. No tenderness. RIGHT: Pain with internal and external rotation with referred pain to the lateral hip but not the groin today. Also tenderness to palpation over the bursa. No erythema, swelling, increased warmth or ecchymosis. Knees:? Normal pain-free range of motion without tenderness, swelling, increased warmth or erythema.? There is no effusion or crepitation Ankles:? LEFT: Limited range of motion in dorsiflexion, plantar flexion with mild pain.. No inversion and eversion. No tenderness, swelling, increased warmth or erythema. The ankle has significant valgus deformity. Right: Normal range of motion with some slight valgus deformity but no tenderness or swelling. Feet: RIGHT: Normal range of motion with mild 1st MTP bony enlargement; the 1st MTP and 1st IP joint have been fused. No tenderness, swelling increased warmth or erythema Left: Some valgus in the ankle. Mild instep tenderness. Mild nontender bony enlargement at the 1st MTP joint. Other areas the foot have no tenderness, swelling, rednessor warmth. Tender points:.? No tenderness to digital palpation at the occiput, trapezius, second rib, lateral epicondyle, knees, greater trochanter and gluteal area bilaterally. ? Results Reviewed Results Reviewed: Laboratory Tests 07/19/22 11:03 WBC 7.5 Hgb 11.0 L Lymph # (Auto) 1.8 ESR 20 Creatinine 0.90 AST 28 ALT 19 C-Reactive Protein 0.[address] [address] XRay Report Signed Patient: Jocelyn Martin MR#: [id number] : 1955 Acct:[id number] Age/Sex: 65 / F ADM Date: 01/28/[address]: Gilberto Garcia PA-C Ordering Physician: Gilberto Garcia PA-C Date of Service: 01/28/21 Procedure(s): XR knee LT 2V Accession Number(s): [id number] cc: Gilberto Garcia PA-C~ EXAMINATION: X-RAY OF THE LEFT KNEE. CLINICAL INFORMATION: Pain in the left knee. 65-year-old female. COMPARISON: None TECHNIQUE: AP standing views of both knees, lateral and sunrise views of the left knee. FINDINGS: There is a small suprapatellar joint effusion of the left knee. Alignment is maintained. The articular surfaces of both knees are well preserved. Patellofemoral alignment is normal. Arterial vascular calcification is present in the proximal left calf. XR/XR knee LT 2V IMPRESSION: Small joint effusion, left knee. Dictated By: BRETT ARAGON MD Assessment & Plan Assessment & Plan (1) Age related osteoporosis: Comment: on alendronate since December 2020 Code(s): M81.0 - Age-related osteoporosis without current pathological fracture Qualifiers: Presence of current pathological fracture: without current pathological fracture Qualified Code(s): M81.0 - Age-related osteoporosis without current pathological fracture (2) Seropositive rheumatoid arthritis: Comment: methotrexate-dates unknown Enbrel 08/2015-07/2016 Arava 11/2016- 09/2018 Xeljanz 09/2018- present. Code(s): M05.9 - Rheumatoid arthritis with rheumatoid factor, unspecified (3) Medication monitoring encounter: Comment: Tramadol contract updated 04/19/2022 Code(s): Z51.81 - Encounter for therapeutic drug level monitoring (4) Shoulder pain, left: Code(s): M25.512 - Pain in left shoulder Plan The patient has longstanding RA with deformities and previous surgeries and fractures. She seems to be having a bit more pain in the left shoulder. This could be some rotator cuff impingement and tendinitis the basis of mechanical issues or even some active synovitis. I have ordered an x-ray of the shoulder. Elsewhere I do not really see much in terms of signs of active synovitis. She seems to be tolerating the Xeljanz but we have not had any blood work in 6 months so that needs to be done today. She seems to get some pain relief with the tramadol without adverse effects and she does comply with the prescription so I think it can be continued as before. Additionally the alendronate seems to be tolerated and that should be continued. She is having more low back pain, this is likely due to degenerative disease. She is worried about the right wrist pain but I think this is secondary to old fracture as well as secondary OA from rheumatoid arthritis. It seems to be functional for now so I do not think she needs further procedures for now. Follow-up in 3 months is recommended. Orders: Orders Erythrocyte Sedimentation Rate Today M05.9 - Rheumatoid arthritis with rheumatoid factor, unspecified XR shoulder LT min 2V Today M25.512 - Pain in left shoulder C Reactive Protein Today M05.9 - Rheumatoid arthritis with rheumatoid factor, unspecified Alanine Aminotransferase Today M05.9 - Rheumatoid arthritis with rheumatoid factor, unspecified, Z79.899 - Other veneer glue spreader (current) drug therapy Aspartate Amino Transferase Today M05.9 - Rheumatoid arthritis with rheumatoid factor, unspecified, Z79.899 - Other assisted (current) drug therapy Complete Blood Count Auto Diff Today M05.9 - Rheumatoid arthritis with rheumatoid factor, unspecified, Z79.899 - Other assisted (current) drug therapy Creatinine Today M05.9 - Rheumatoid arthritis with rheumatoid factor, unspecified, Z79.899 - Other veneer glue spreader (current) drug therapy Coding Level of Care Code Est Pt Level 4 (07223) Diagnoses Age-related osteoporosis without current pathological fracture M81.0 Presence of current pathological fracture: without current pathological fracture Seropositive rheumatoid arthritis M05.9 Medication monitoring encounter Z51.81 Shoulder pain, left M25.512
[2023-03-05 10:47] VITALS: BP 100/66; PULSE 72; TEMP 36.3; O2SAT 98; BMI 28.9
== END 2023-03-05 11:29 | disposition home or self-care (01) ==
PROVIDERS: PCP Internal Medicine; Visit Provider Internal Medicine Rheumatology
DX: M05.79 Rheumatoid arthritis with rheumatoid factor of multiple sites without organ or systems involvement (principal); M81.0 Age-related osteoporosis without current pathological fracture; Z51.81 Encounter for therapeutic drug level monitoring; M25.512 Pain in left shoulder
CPT/HCPCS: 99214

== ENCOUNTER → 2023-03-05 10:44 | Outpatient (BNVA) | payer BC, SELFPAY | PROVIDERS: PCP Internal Medicine; Visit Provider Internal Medicine Rheumatology ==

== ENCOUNTER 2023-03-05 11:48 | Outpatient (REF) | payer BC, SELFPAY ==
[2023-03-05 13:41] LABS: MANUAL DIFF FLAG NO
[2023-03-05 13:44] LABS: Basophils Absolute Auto 0.1 X10*3/uL (0.0-0.2); Basophils Percent Auto 0.9 % (0-2); Eosinophils Absolute Auto 0.3 X10*3/uL (0.0-0.4); Eosinophils Percent Auto 3.4 % (0-4); Hematocrit 27.7 % (37.0-47.0); Hemoglobin 8.2 g/dl (12.0-16.0); Imm Gran Abs Auto 0.03 X10*3/uL (0.00-0.03); Imm Gran Pct Auto 0.3 % (0.0-0.4); Lymphocytes Percent Auto 22.7 % (20-40); Mean Corpuscular HGB Conc 29.6 g/dl (31.0-35.0); Mean Corpuscular Hemoglobin 21.1 pg (27.0-33.0); Mean Corpuscular Volume 71.4 fL (80.0-98.0); Mean Platelet Volume 10.4 fL (9.4-12.3); Monocytes Absolute Auto 0.7 X10*3/uL (0.1-1.2); Monocytes Percent Auto 7.9 % (2-11); Neutrophils Absolute Auto 5.6 x10*3/uL (2.0-8.3); Neutrophils Percent Auto 64.8 % (45-73); Platelet Count 319 X10*3/uL (160-400); Red Blood Count 3.88 X10*6/uL (4.20-5.50); Red Cell Distribution Width 15.8 % (11.0-16.0); White Blood Count 8.6 X10*3/uL (4.8-10.8)
[2023-03-05 13:54] LABS: Alanine Aminotransferase 21 U/L (0-31); Aspartate Amino Transferase 26 U/L (5-31); C Reactive Protein 0.19 mg/dL (< or = 0.50); Estimated Glomerular Filt Rate > 60
[2023-03-05 14:23] LABS: Erythrocyte Sedimentation Rate 25 MM/HR (0-20)
== END 2023-03-05 11:49 | disposition home or self-care (01) ==
LOC: HO.10HDL 11:48
PROVIDERS: Visit Provider Internal Medicine Rheumatology
DX: M05.9 Rheumatoid arthritis with rheumatoid factor, unspecified (principal); Z79.899 Other long term (current) drug therapy
CPT/HCPCS: 36415; 82565; 84450; 84460; 85025; 85652; 86140

== ENCOUNTER 2023-03-08 11:06 | Outpatient (REF) | payer BC, SELFPAY ==
[2023-03-08 13:26] LABS: MANUAL DIFF FLAG NO
[2023-03-08 13:32] LABS: Basophils Absolute Auto 0.1 X10*3/uL (0.0-0.2); Basophils Percent Auto 1.1 % (0-2); Eosinophils Absolute Auto 0.2 X10*3/uL (0.0-0.4); Eosinophils Percent Auto 3.6 % (0-4); Hematocrit 28.1 % (37.0-47.0); Hemoglobin 8.2 g/dl (12.0-16.0); Imm Gran Abs Auto 0.02 X10*3/uL (0.00-0.03); Imm Gran Pct Auto 0.3 % (0.0-0.4); Lymphocytes Absolute Auto 1.7 X10*3/uL (1.2-4.9); Lymphocytes Percent Auto 26.3 % (20-40); Mean Corpuscular HGB Conc 29.2 g/dl (31.0-35.0); Mean Corpuscular Hemoglobin 21.4 pg (27.0-33.0); Mean Corpuscular Volume 73.4 fL (80.0-98.0); Mean Platelet Volume 10.5 fL (9.4-12.3); Monocytes Absolute Auto 0.6 X10*3/uL (0.1-1.2); Monocytes Percent Auto 9.3 % (2-11); NRBC Pct Auto 0.3 /100WBC (0.0-0.2); Neutrophils Absolute Auto 3.8 x10*3/uL (2.0-8.3); Neutrophils Percent Auto 59.4 % (45-73); Platelet Count 332 X10*3/uL (160-400); Red Blood Count 3.83 X10*6/uL (4.20-5.50); Red Cell Distribution Width 15.7 % (11.0-16.0); White Blood Count 6.5 X10*3/uL (4.8-10.8)
[2023-03-08 13:45] LABS: Iron 20 mcg/dL (30-160); Percent Iron Saturation 5 % (15-50); Total Iron Binding Capacity 420 mcg/dL (228-428); Unsaturated Iron Binding 400 ug/dL
[2023-03-08 14:12] LABS: Vitamin B12 486 pg/mL (200-900)
== END 2023-03-08 11:07 | disposition home or self-care (01) ==
LOC: HO.10HDL 11:06
PROVIDERS: Visit Provider Internal Medicine Rheumatology
DX: D50.9 Iron deficiency anemia, unspecified (principal)
CPT/HCPCS: 36415; 82607; 83540; 85025; 86880

== ENCOUNTER 2023-06-05 10:01 | Outpatient (AMB) | payer BC, SELFPAY ==
--- NOTE | 2023-06-05 10:03 | MHC.OFFVIS ---
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 Zuñiga, presents today for follow up and test results. Reports [facility] Medical admission early May due to iron deficiency and Covid. 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 Banks, 68 yoF returns today for follow-up of her rheumatoid arthritis, osteoarthritis, and osteoporosis. She remains on Xeljanz 11 mg daily, tramadol 50 mg tablets taking 1 or 2 b.i.d., alendronate 70 mg weekly, naproxen 500 mg b.i.d. p.r.n., and topical diclofenac gel on her hands if needed. She does not notice significant sedation with the tramadol. The patient has had a recent Hospitalization and required a blood transfusion. She has since started Lasix. She is not able to articulate clearly what her diagnosis was but says she was full of fluid . She does not notice any side effects with the Xeljanz She has prior fractures in the ankles and the wrists. She also has had surgery on the right hand she says 5 times. This was apparently a fusion followed by efforts at tendon repairs which were partially successful. --She stopped smoking she said about 4 years ago. She has been on the alendronate since 2020. She has not had any recent fractures. [facility] Medical History (Updated 06/05/23 @ 12:36 by HILDA Jaimes) Generalized osteoarthritis of multiple sites Long-term use of immunosuppressant medication Dyspnea on exertion Seropositive rheumatoid arthritis Cough COPD (chronic obstructive pulmonary disease) Surgical History History of hand surgery History of bunionectomy History of appendectomy Family History Mother HTN (hypertension) Father CVD (cardiovascular disease) Maternal Grandmother Cervical cancer Social History Alcohol intake: current Alcohol intake frequency: holidays/special occasions only Patient Tobacco Use Status: Former Tobacco user Tobacco use type: Cigarette Cigarettes Per Day: 10 Years Smoked: 50 quit 2years ago e-Cigarette/Vaping Use: Never Used Current occupational status: retired Physical Exam Vital Signs: Last Vital Signs Temp 97 F 06/05/23 10:04 Pulse 101 H 06/05/23 10:04 BP 112/74 06/05/23 10:04 Pulse Ox 95 06/05/23 10:04 Oxygen Delivery Method Room Air 06/05/23 10:04 BMI result Body Mass Index 29.4 Assessment & Plan Assessment & Plan (1) Age related osteoporosis: Comment: on alendronate since December 2020 Code(s): M81.0 - Age-related osteoporosis without current pathological fracture Qualifiers: Presence of current pathological fracture: without current pathological fracture Qualified Code(s): M81.0 - Age-related osteoporosis without current pathological fracture (2) Seropositive rheumatoid arthritis: Comment: methotrexate-dates unknown Enbrel 08/2015-07/2016 Arava 11/2016- 09/2018 Xelamira 09/2018- present. Code(s): M05.9 - Rheumatoid arthritis with rheumatoid factor, unspecified (3) Medication monitoring encounter: Comment: Tramadol contract updated 04/19/2022 Code(s): Z51.81 - Encounter for therapeutic drug level monitoring (4) Long-term use of immunosuppressant medication: Code(s): Z79.60 - intermediate card tender (current) use of unspecified immunomodulators and immunosuppressants (5) Generalized osteoarthritis of multiple sites: Code(s): M15.9 - Polyosteoarthritis, unspecified (6) Iron deficiency anemia: Code(s): D50.9 - Iron deficiency anemia, unspecified Plan #SeroPos RA/OA Multiple Joints: The patient has longstanding RA with deformities and previous surgeries and fractures. She has been feeling improved after her recent hospitalization with blood transfusion (May 09 for 9 days). She says no source of bleeding was found to explain the need for infusion. She seems to be tolerating the Xeljanz. She continues with back pain, this is likely due to degenerative disease, and shoulder pain. The right wrist pain is secondary to old fracture as well as secondary OA from rheumatoid arthritis. She seems to get some pain relief with the tramadol without adverse effects and she does comply with the prescription so I think it can be continued as before. #PABLO: Patient has PABLO which is likely the reasons for the transfusion. She was evaluated 03/2023 with labs and sent to GI. She should continue on Ferrous Sulfate 325mg TID. Will recheck CBC in 1 month #Osteoporosis: She is tolerating alendronate. July 2023 next Bone Density. Fell down 03/2023 and broke two ribs. If Bone density worsens, will consider to change to Prolia, also Calcium and Vit D #Waste Hand Use: Recent Lipids, CBC, and Liver enzymes and Kidney function ok to continue Xeljanz. Patient knows to hold medication if she develops fever, infection or non-healing wound. She did stop the Xeljanz during her recent hospitalization. Wwill recheck labs in 3 months before next visit. I spent 35 minutes reviewing chart, evaluating patient and documenting. Follow-up in 3 months is recommended. Orders: Orders Erythrocyte Sedimentation Rate Today M05.9 - Rheumatoid arthritis with rheumatoid factor, unspecified, Z79.60 - [facility] (current) use of unspecified immunomodulators and immunosuppressants C Reactive Protein Today M05.9 - Rheumatoid arthritis with rheumatoid factor, unspecified, Z79.60 - intermediate card tender (current) use of unspecified immunomodulators and immunosuppressants Complete Blood Count Auto Diff Today M05.9 - Rheumatoid arthritis with rheumatoid factor, unspecified, Z79.60 - intermediate card tender (current) use of unspecified immunomodulators and immunosuppressants, Z79.899 - Other detention (current) drug therapy Comprehensive Met. Panel Today M05.9 - Rheumatoid arthritis with rheumatoid factor, unspecified, Z79.60 - [facility] (current) use of unspecified immunomodulators and immunosuppressants Lipid Panel Today M05.9 - Rheumatoid arthritis with rheumatoid factor, unspecified, Z79.60 - [facility] (current) use of unspecified immunomodulators and immunosuppressants Coding Level of Care Code Est Pt Level 4 (39379) Diagnoses Age-related osteoporosis without current pathological fracture M81.0 Presence of current pathological fracture: without current pathological fracture Seropositive rheumatoid arthritis M05.9 Medication monitoring encounter Z51.81 Long-term use of immunosuppressant medication Z79.60 Generalized osteoarthritis of multiple sites M15.9 Iron deficiency anemia D50.9
[2023-06-05 10:04] VITALS: BP 112/74; PULSE 101; TEMP 36.1; O2SAT 95; BMI 29.4
== END 2023-06-05 10:45 | disposition home or self-care (01) ==
PROVIDERS: PCP Internal Medicine; Visit Provider Nurse Practitioner Family
DX: M81.0 Age-related osteoporosis without current pathological fracture (principal); M05.79 Rheumatoid arthritis with rheumatoid factor of multiple sites without organ or systems involvement; Z51.81 Encounter for therapeutic drug level monitoring; Z79.60 Long term (current) use of unspecified immunomodulators and immunosuppressants; M15.9 Polyosteoarthritis, unspecified; D50.9 Iron deficiency anemia, unspecified
CPT/HCPCS: 99214

== ENCOUNTER → 2023-06-05 10:01 | Outpatient (BNVA) | payer BC, SELFPAY | PROVIDERS: PCP Internal Medicine; Visit Provider Nurse Practitioner Family ==

== ENCOUNTER 2023-10-16 09:52 | Outpatient (AMB) | payer BC, SELFPAY ==
--- NOTE | 2023-10-16 09:59 | A.OFFVIS_ITS ---
Vital Signs 10/16/23 10:00 Height 4 ft 11 in Weight 140 lb 3.424 oz BMI 28.3 BP 104/60 Blood Pressure Location Lt brachial Position Sitting Pulse 82 Pulse Source Pulse Oximeter Intake Visit Reasons: RA/Osteoporosis Intake Note: Patient presents today for RA/ Osteoporosis follow up. 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 Banks, 68 yoF returns today for follow-up of her rheumatoid arthritis, osteoarthritis, and osteoporosis. She remains on Xeljanz 11 mg daily, tramadol 50 mg tablets taking 1 or 2 b.i.d., Alendronate 70 mg weekly, naproxen 500 mg b.i.d. p.r.n., and topical diclofenac gel on her hands if needed. She does not notice significant sedation with the Tramadol. The patient has had a recent Hospitalization (2 weeks) for Pneumonia. She has completed the ABX and restarted the Xeljanz yesterday. She reports that she has never had Pneumonia until she had the vaccine. She recieved that vaccine May 03 2023 and then May 09 2023 she was admitted to the hospital with PNU. History: She has prior fractures in the ankles and the wrists. She also has had surgery on the right hand she says 5 times. This was apparently a fusion followed by efforts at tendon repairs which were partially successful. --She stopped smoking she said about 4 years ago. She has been on the alendronate since 2020. She has not had any recent fractures. Several surgery for removal of RA nodules, even on her achilles area. [facility] Medical History (Updated 10/16/23 @ 10:43 by HILDA Jaimes) Trochanteric bursitis, right hip Generalized osteoarthritis of multiple sites Long-term use of immunosuppressant medication Dyspnea on exertion Seropositive rheumatoid arthritis Cough COPD (chronic obstructive pulmonary disease) Surgical History History of hand surgery History of bunionectomy History of appendectomy Family History Mother HTN (hypertension) Father CVD (cardiovascular disease) Maternal Grandmother Cervical cancer Social History Alcohol intake: current Alcohol intake frequency: holidays/special occasions only Patient Tobacco Use Status: Former Tobacco user Tobacco use type: Cigarette Cigarettes Per Day: 10 Years Smoked: 50 quit 2years ago e-Cigarette/Vaping Use: Never Used Current occupational status: retired Review of Systems Const All systems reviewed & are unremarkable except as noted in HPI and below Physical Exam Vital Signs: Last Vital Signs Pulse 82 10/16/23 10:00 BP 104/60 10/16/23 10:00 BMI result Body Mass Index 28.3 APPEARANCE: Patient in no acute distress EYES no redness, pupils equal and reactive to light, eyelids normal EXTREMITIES: No edema, no calf tenderness, normal peripheral pulses. JOINT EXAM:?? Hands: LEFT: Mild thickening at the 1st 3 MCP joints where there is mild tenderness. There is no slight swelling of the 1st 3 MCP joints and these are not tender. I do not detect any sensory loss or thenar atrophy. RIGHT: There is thickening at the 1st 3 MCP joints. These are mildly tender although the 1st has been fused. Also fused is the thumb IP joint. Surgical scars are well healed with no signs of infection. She has difficulty opposing the thumb to the 2nd and 3rd fingers. st. Wrists:? LEFT: Limited extension to 30 degrees and to 60 degrees flexion. There is some dorsal prominence suggesting swelling and or subluxation. The wrist has mild tenderness but no erythema or warmth. RIGHT: Right wrist is fixed, previous surgical fusion, bony prominence noted in the center of the dorsal aspect of the hand is a longitudinal so its a structure consistent with surgical hardware. It is not tender. There is no swelling erythema or warmth Healed scar noted over the wrist and dorsum of the hand. Elbows: LEFT: Full range of motion. Tenderness to palpation over lateral epicondyle. Soft tissue swelling noted over the olecranon, no erythema, warmth or tenderness of this area. RIGHT: Full range of motion. Tenderness to palpation over the lateral epicondyle. No swelling, increased warmth or erythema. Shoulders:?? Full range of motion without pain. No tenderness, weakness, swelling, increased warmth or erythema. Hips: LEFT: Full range of motion without pain. No tenderness. RIGHT: Pain with internal and external rotation with referred pain to the lateral hip but not the groin today. Also marked tenderness to palpation over the bursa. No erythema, swelling, increased warmth or ecchymosis. Knees:? Normal pain-free range of motion without tenderness, swelling, increased warmth or erythema.? There is no effusion or crepitation Ankles:? LEFT: Limited range of motion in dorsiflexion, plantar flexion with mild pain.. No inversion and eversion. No tenderness, swelling, increased warmth or erythema. The ankle has significant valgus deformity. Right: Normal range of motion with some slight valgus deformity but no tenderness or swelling. Feet: RIGHT: Normal range of motion with mild 1st MTP bony enlargement; the 1st MTP and 1st IP joint have been fused. No tenderness, swelling increased warmth or erythema Left: Some valgus in the ankle. Mild instep tenderness. Mild nontender bony enlargement at the 1st MTP joint. Other areas the foot have no tenderness, swelling, rednessor warmth. Tender points:.? No tenderness to digital palpation at the occiput, trapezius, second rib, lateral epicondyle, knees, greater trochanter and gluteal area bilaterally. ? Office Procedures Joint Injection/Drain Joint Injection/Drain Primary Site: other (Right Trochanteric Bursa) Prep: site was prepped using aseptic technique and injection warnings given Injected: 40 mg of, Kenalog, 1% plain lidocaine and other (Lidocaine 2 ml) Approach Used: posterolateral Procedure: The patient tolerated the procedure well Coding - Glenohumeral/Tronchanteric Bursa/Intraarticular Procedure code (CPT) selection complete Assessment & Plan Assessment & Plan (1) Age related osteoporosis: Comment: on alendronate since December 2020 Code(s): M81.0 - Age-related osteoporosis without current pathological fracture Category: Medical Qualifiers: Presence of current pathological fracture: without current pathological fracture Qualified Code(s): M81.0 - Age-related osteoporosis without current pathological fracture (2) Seropositive rheumatoid arthritis: Comment: methotrexate-dates unknown Enbrel 08/2015-07/2016 Arava 11/2016- 09/2018 Xeljanz 09/2018- present. Code(s): M05.9 - Rheumatoid arthritis with rheumatoid factor, unspecified Category: Medical (3) Long-term use of immunosuppressant medication: Code(s): Z79.60 - [facility] (current) use of unspecified immunomodulators and immunosuppressants Category: Medical (4) Generalized osteoarthritis of multiple sites: Code(s): M15.9 - Polyosteoarthritis, unspecified Category: Medical (5) Iron deficiency anemia: Code(s): D50.9 - Iron deficiency anemia, unspecified Category: Medical Qualifiers: Iron deficiency anemia type: inadequate dietary iron intake Qualified Code(s): D50.8 - Other iron deficiency anemias (6) Trochanteric bursitis, right hip: Code(s): M70.61 - Trochanteric bursitis, right hip Category: Medical Plan #SeroPos RA/OA Multiple Joints: The patient has longstanding RA with deformities and previous surgeries and fractures. She seems to be tolerating the Xeljanz 11mg QD and the RA is well managed. She continues with back pain, this is likely due to degenerative disease, and shoulder pain. The right wrist pain is secondary to old fracture as well as secondary OA from rheumatoid arthritis. She does get pain relief with the Tramadol without adverse effects and she does com ply with the prescription so we will continued as before. Will consider to change Xeljanz if another bout of PNU IN THE NEXT 3 MONTHS. #Right Trochanteric Bursitis: Injection given today. #PABLO: Patient has PABLO and has had transfusions in the past, recently as May 2023. She was evaluated by GI but no adverse findings. She missed an appointment with GI due to recent hospitalization. She will call to reschedule. She should continue on Ferrous Sulfate 325mg TID. Will recheck CBC in 1 month #Osteoporosis: She is tolerating alendronate 70 mg QW. July 2023 next Bone Density - will obtain copy of results. Fell down 03/2023 and broke two ribs. If Bone density worsens, will consider to change to Prolia, also Calcium and Vit D #Halfway Use: Recurring PNU infections are concerning. If she has another episode, within 3 months, we will consider to change Xeljanz. Need updated CBC, and Liver enzymes and Kidney function. Will continue Xeljanz. Patient knows to hold medication if she develops fever, infection or non-healing wound. She did stop the Xeljanz during her recent hospitalization. Will recheck labs in 3 months before next visit. I spent 30 minutes reviewing chart, evaluating patient and documenting. Follow-up in 3 months is recommended. Orders: Orders AMB Joint Injection/Aspiration Today M70.61 - Trochanteric bursitis, right hip Coding Level of Care Code Est Pt Level 4 (40357) Complex EM visit Add On [id number] Diagnoses Age-related osteoporosis without current pathological fracture M81.0 Presence of current pathological fracture: without current pathological fracture Seropositive rheumatoid arthritis M05.9 Long-term use of immunosuppressant medication Z79.60 Generalized osteoarthritis of multiple sites M15.9 Iron deficiency anemia secondary to inadequate dietary iron intake D50.8 Iron deficiency anemia type: inadequate dietary iron intake Trochanteric bursitis, right hip M70.61 CPT Codes Coding - Joint 7: [id number] - Glenohumeral/Tronchanteric Bursa/Intraarticular ([id number])
[2023-10-16 10:00] VITALS: BP 104/60; PULSE 82; BMI 28.3
== END 2023-10-16 10:30 | disposition home or self-care (01) ==
PROVIDERS: PCP Internal Medicine; Visit Provider Nurse Practitioner Family
DX: M81.0 Age-related osteoporosis without current pathological fracture (principal); M05.79 Rheumatoid arthritis with rheumatoid factor of multiple sites without organ or systems involvement; Z79.60 Long term (current) use of unspecified immunomodulators and immunosuppressants; M15.9 Polyosteoarthritis, unspecified; D50.8 Other iron deficiency anemias; M70.61 Trochanteric bursitis, right hip
CPT/HCPCS: 20610; 99214

== ENCOUNTER → 2023-10-16 09:52 | Outpatient (BNVA) | payer BC, SELFPAY | PROVIDERS: PCP Internal Medicine; Visit Provider Nurse Practitioner Family | DX: M81.0 Age-related osteoporosis without current pathological fracture (principal); M05.9 Rheumatoid arthritis with rheumatoid factor, unspecified; M70.61 Trochanteric bursitis, right hip; M15.9 Polyosteoarthritis, unspecified; D50.8 Other iron deficiency anemias; Z79.60 Long term (current) use of unspecified immunomodulators and immunosuppressants | CPT/HCPCS: 20610; J3301 ==

== ENCOUNTER 2023-10-16 10:49 | Outpatient (REF) | payer BC, SELFPAY ==
[2023-10-16 13:24] LABS: MANUAL DIFF FLAG NO
[2023-10-16 13:42] LABS: Basophils Absolute Auto 0.1 X10*3/uL (0.0-0.2); Basophils Percent Auto 0.6 % (0-2); Eosinophils Absolute Auto 0.1 X10*3/uL (0.0-0.4); Eosinophils Percent Auto 1.4 % (0-4); Hematocrit 36.6 % (37.0-47.0); Hemoglobin 11.9 g/dl (12.0-16.0); Imm Gran Abs Auto 0.03 X10*3/uL (0.00-0.03); Imm Gran Pct Auto 0.3 % (0.0-0.4); Lymphocytes Absolute Auto 1.8 X10*3/uL (1.2-4.9); Lymphocytes Percent Auto 19.1 % (20-40); Mean Corpuscular HGB Conc 32.5 g/dl (31.0-35.0); Mean Corpuscular Hemoglobin 26.7 pg (27.0-33.0); Mean Corpuscular Volume 82.2 fL (80.0-98.0); Monocytes Absolute Auto 0.8 X10*3/uL (0.1-1.2); Monocytes Percent Auto 8.1 % (2-11); Neutrophils Absolute Auto 6.6 x10*3/uL (2.0-8.3); Neutrophils Percent Auto 70.5 % (45-73); Red Blood Count 4.45 X10*6/uL (4.20-5.50); Red Cell Distribution Width 13.9 % (11.0-16.0); White Blood Count 9.4 X10*3/uL (4.8-10.8)
[2023-10-16 14:01] LABS: Alanine Aminotransferase 18 U/L (0-31); Albumin Level 3.8 g/dL (3.5-5.0); Alkaline Phosphatase 64 U/L (39-117); Anion Gap 14 (12-20); Aspartate Amino Transferase 19 U/L (5-31); Bilirubin Total 0.4 mg/dL (0.0-1.0); Blood Urea Nitrogen 12 mg/dL (9-16); C Reactive Protein 3.86 mg/dL (< or = 0.50); Calcium 9.5 mg/dL (8.4-10.2); Carbon Dioxide 25 mmol/L (22-29); Chloride 101 mmol/L (96-108); Cholesterol 201 mg/dL (<200); Estimated Glomerular Filt Rate > 60; Glucose Random 94 mg/dL (60-115); HDL Cholesterol 56 mg/dL (>40); LDL Cholesterol Calculated 125 mg/dL (<100); Potassium 4.4 mmol/L (3.3-5.1); Sodium 136 mmol/L (135-145); Total Protein 7.2 g/dL (6.5-8.0); Triglycerides 101 mg/dL (<150)
[2023-10-16 14:22] LABS: Erythrocyte Sedimentation Rate 59 MM/HR (0-20)
[2023-10-16 14:41] LABS: Mean Platelet Volume 9.9 fL (9.4-12.3); Platelet Count 518 X10*3/uL (160-400)
== END 2023-10-16 10:50 | disposition home or self-care (01) ==
LOC: HO.10HDL 10:49
PROVIDERS: Visit Provider Nurse Practitioner Family
DX: M05.9 Rheumatoid arthritis with rheumatoid factor, unspecified (principal); Z79.60 Long term (current) use of unspecified immunomodulators and immunosuppressants; Z79.899 Other long term (current) drug therapy
CPT/HCPCS: 36415; 80053; 80061; 85025; 85652; 86140

== ENCOUNTER 2023-12-12 14:45 | Outpatient (AMB) | payer BC, SELFPAY ==
[2023-12-12 15:06] VITALS: BP 122/78; PULSE 85; O2SAT 95; BMI 27.3
--- NOTE | 2023-12-12 15:06 | A.OFFVIS_ITS ---
Vital Signs 12/12/23 15:06 Height 4 ft 11 in Weight 135 lb BMI 27.3 BP 122/78 Blood Pressure Location Lt brachial Position Sitting Pulse 85 Pulse Source Pulse Oximeter Pulse Oximetry (%) 95 Oxygen Delivery Method Room Air Intake Visit Reasons: COPD Intake Note: pt is here for follow up and states she had pneumonia x2 and covid in the past year and today she has not been feeling well past few days, coughing, using inhaler more than ususal , and trouble swallowing, with food getting stuck and scaring her. Human Resources Officer Required: No Allergies codeine Allergy (Unknown, Verified 12/12/23 15:22) Rash latex [LATEX] Allergy (Unknown, Verified 12/12/23 15:22) ANGIOEDEMA morphine Allergy (Unknown, Verified 12/12/23 15:22) Vomiting penicillin V Allergy (Unknown, Verified 12/12/23 15:22) Unknown Medication List - Last Reconciled 12/12/23 by Nichole Carrera MD albuterol sulfate 90 mcg/actuation 2 puffs inhalation Q4-6H PRN 30 days alendronate 70 mg PO QWEEK ascorbate calcium (vitamin C) 500 mg PO DAILY cholecalciferol (vitamin D3) 50 mcg PO DAILY diclofenac sodium 1% 2 grams topical BID ferrous sulfate 325 mg PO TID fluticasone furoate-vilanterol 100-25 mcg/dose 1 ea PO DAILY 90 days furosemide 20 mg PO DAILY lisinopril 5 mg PO DAILY lorazepam 0.5 mg PO BID PRN omeprazole 20 mg PO DAILY pravastatin 40 mg PO DAILY tramadol 100 mg (2 x 50 mg) PO BID PRN venlafaxine ER 37.5 mg PO DAILY Xeljanz XR (tofacitinib) 11 mg PO DAILY NS Do you need a note to return to daycare/school/sports/work: No HPI HPI COPD: Details: THIS 68 YEARS OLD FEMALE IS BEING TREATED FOR BRONCHIAL ASTHMA. SHE DOES WELL WITH THE USE OF BREO 1 INHALATION DAILY. BUT NOW FOR THE LAST 2 WEEKS HAS BEEN OUT OF THIS MEDICINE. COMPLAINS OF INCREASED COUGH AND SHORTNESS OF BREATH. DURING THE PAST YEAR SHE HAS SUFFERED FROM PNEUMONIA TWICE AND ALSO COVID INFECTION. BOTH TIMES SHE WAS TREATED AT [facility]. SHE IS ALSO COMPLAINING OF DIFFICULTY IN SWALLOWING, OFF AND ON. SHE FEELS THAT THE FOOD GETS STUCK IN THE THROAT AND SHE CAN NOT SWALLOW IT DOWN. BUT SHE HAS HAD NO CHOKING EPISODES. IT HAPPENS WITH SOLIDS OR LIQUIDS EQUAL. SHE DOES HAVE LONGSTANDING HISTORY OF GERD SYMPTOMS TREATED WITH OMEPRAZOLE. SHE QUIT SMOKING MORE THAN. 5 YEARS AGO SHE HAS ONLY SOCIAL DRINKER AND NOW THAT SHE IS ON XELJANZ INJECTIONS FOR RHEUMATOID ARTHRITIS, SHE IS TOLD NOT TO DRINK AT ALL. [facility] Medical History (Updated 12/12/23 @ 15:45 by Nichole Carrera MD) Dysphagia Trochanteric bursitis, right hip Generalized osteoarthritis of multiple sites Long-term use of immunosuppressant medication Dyspnea on exertion Seropositive rheumatoid arthritis Cough COPD (chronic obstructive pulmonary disease) Surgical History History of hand surgery History of bunionectomy History of appendectomy Family History Mother HTN (hypertension) Father CVD (cardiovascular disease) Maternal Grandmother Cervical cancer Social History Alcohol intake: current Alcohol intake frequency: holidays/special occasions only Patient Tobacco Use Status: Former Tobacco user Tobacco use type: Cigarette Cigarettes Per Day: 10 Years Smoked: 50 quit 2years ago e-Cigarette/Vaping Use: Never Used Current occupational status: retired Review of Systems Const All systems reviewed & are unremarkable except as noted in HPI and below Eyes Reports no additional complaints ENT Reports dysphagia (PATIENT DESCRIBES DIFFICULTY IN SWALLOWING FOODS, HAPPENS OFF AND ON ) and Reports nasal congestion (Only mild, intermittent) Card Denies chest pain, Denies irregular heart rhythm and Denies leg edema Resp Reports as per HPI GI Reports dysphagia (PATIENT DESCRIBES DIFFICULTY IN SWALLOWING FOODS, HAPPENS OFF AND ON ) and Reports heartburn (Symptoms of GERD controlled with omeprazole) Reports no additional complaints Musc Reports back pain and Reports arthralgias Skin/Breast Reports system reviewed and no additional complaints, except as documented Neuro Reports no additional complaints Psych Reports anxiety (Mild controlled) Endo Reports no additional complaints Physical Exam Vital Signs: Last Vital Signs Pulse 85 12/12/23 15:06 BP 122/78 12/12/23 15:06 Pulse Ox 95 12/12/23 15:06 Oxygen Delivery Method Room Air 08/07/24 15:06 BMI result Body Mass Index 27.3 Const General: comfortable, no acute distress, alert and awake Orientation/consciousness: patient oriented x3 HEENT Head: Yes normal to inspection General nose exam: No nasal polyps present and No nasal discharge present Face and sinus: Yes sinuses nontender Mouth: oropharynx normal Throat: Yes posterior oropharynx normal Eyes General: appearance normal, both eyes and all related structures Neck Neck: Yes normal visual inspection, Yes no lymphadenopathy, Yes trachea midline and Yes no JVD Thyroid: Thyroid normal Chest Chest palpation & inspection: normal inspection of the chest, normal palpation of entire chest wall and no tenderness Resp Other: Percussion note resonant, breath sounds are slightly distant with prolonged expiratory phase. SHE HAS A FEW EXPIRATORY WHEEZES OVER THE LOWER PARTS OF THE CHEST ON BOTH SIDES. Cardio Palpation: normal PMI Rate: regular rate Rhythm: regular rhythm Heart sounds: no gallops and no murmurs GI Palpation (GI): Soft to palpation, nontender, No hepatosplenomegaly present and no masses Auscultation: normal bowel sounds Back/Spine/Pelvis Thoracic/Lumbar Spine: thoracic and lumbar spine normal to inspection and thoraco-lumbar ROM limited Skin General skin exam: no rashes or lesions noted Neuro General: patient oriented x3 and no focal motor deficits Cranial nerves: Yes CN's II-XII intact bilaterally Extrem General: Yes normal to inspection, Yes no clubbing, cyanosis or edema and Yes no calf tenderness Psych Speech and movement: Normal speech and movement present Assessment & Plan Assessment & Plan (1) COPD (chronic obstructive pulmonary disease): Comment: SHE HAS A MILD DEGREE OF COPD/ASTHMA , TX: WAS DOING WELL ON BREO-100 1 INHALATION DAILY. BUT NOW FOR THE PAST FEW WEEKS HAS BEEN OUT OF THIS MEDICINE AND IS HAVING INCREASED COUGH AND SOME WHEEZING. Code(s): J44.9 - Chronic obstructive pulmonary disease, unspecified Category: Medical Plan: ADVISED TO CONTINUE USING BREO-100 1 INHALATION DAILY REGULARLY. PRESCRIPTION IS RENEWED. SHE IS ADVISED TO COME AT LEAST ONCE A YEAR FOR FOLLOW-UP TO HAVE CONTINUED . PRESCRIPTIONS (2) Dyspnea on exertion: Comment: WITH THE USE OF BREO 100 1 INHALATION DAILY SHE DOES NOT HAVE ANY UNUSUAL DYSPNEA ON EXERTION. IT IS ONLY MILD EXPECTED . Code(s): R06.00 - Dyspnea, unspecified Category: Medical Plan: CONTINUE BREO -100 1 INHALATION DAILY (3) Dysphagia: Comment: DESCRIBES DIFFICULTY IN SWALLOWING OFF AND ON, WITHOUT ANY SPECIFIC REASON. NO DIFFERENCE WHETHER IT IS LIQUID OR SOLID FOOD. AFTER SWALLOWING SHE HAS DISCOMFORT IN THE THROAT. Code(s): R13.10 - Dysphagia, unspecified Category: Medical Plan: ORDERED BARIUM SWALLOW TO RULE OUT ANY OBSTRUCTIVE ETIOLOGY. Orders: Orders FL barium swallow Today R13.10 - Dysphagia, unspecified Medications: New fluticasone furoate-vilanterol 100-25 mcg/dose (Breo Ellipta) 1 inh inhalation DAILY 30 days 60 ea 5RF COPD Coding Level of Care Code Est Pt Level 3 (26401) Diagnoses COPD (chronic obstructive pulmonary disease) J44.9 Dyspnea on exertion R06.00 Dysphagia R13.10
== END 2023-12-12 15:36 | disposition home or self-care (01) ==
PROVIDERS: PCP Internal Medicine; Visit Provider Internal Medicine
DX: J44.9 Chronic obstructive pulmonary disease, unspecified (principal); R06.00 Dyspnea, unspecified; R13.10 Dysphagia, unspecified
CPT/HCPCS: 99213

== ENCOUNTER → 2023-12-12 14:45 | Outpatient (BNVA) | payer BC, SELFPAY | PROVIDERS: PCP Internal Medicine; Visit Provider Internal Medicine ==

== ENCOUNTER 2024-01-21 08:18 | Outpatient (AMB) | payer BC, SELFPAY ==
[2024-01-21 08:20] VITALS: BP 122/68; PULSE 87; O2SAT 99; BMI 26.8
--- NOTE | 2024-01-21 08:20 | A.OFFVIS_ITS ---
Vital Signs 01/21/24 08:20 Height 4 ft 11 in Weight 132 lb 11.492 oz BMI 26.8 BP 122/68 Blood Pressure Location Lt brachial Position Sitting Pulse 87 Pulse Source Pulse Oximeter Pulse Oximetry (%) 99 Oxygen Delivery Method Room Air Intake Visit Reasons: RA/Multiple espisodes of PnU Intake Note: Patient presents today for follow up on RA, and multiple episodes of PNU. Loly saleh fell last night walking dog, and hit the side of her head, in pain today. Allergies codeine Allergy (Unknown, Verified 01/21/24 08:28) Rash latex [LATEX] Allergy (Unknown, Verified 01/21/24 08:28) ANGIOEDEMA morphine Allergy (Unknown, Verified 01/21/24 08:28) Vomiting penicillin V Allergy (Unknown, Verified 01/21/24 08:28) Unknown Medication List - Last Reconciled 01/21/24 by Teodoro Johnson MD albuterol sulfate 90 mcg/actuation 2 puffs inhalation Q4-6H PRN 30 days alendronate 70 mg PO QWEEK ascorbate calcium (vitamin C) 500 mg PO DAILY cholecalciferol (vitamin D3) 50 mcg PO DAILY diclofenac sodium 1% 2 grams topical BID ferrous sulfate 325 mg PO TID fluticasone furoate-vilanterol 100-25 mcg/dose 1 ea PO DAILY 90 days fluticasone furoate-vilanterol 100-25 mcg/dose (Breo Ellipta) 1 inh inhalation DAILY 30 days furosemide 20 mg PO DAILY lisinopril 5 mg PO DAILY lorazepam 0.5 mg PO BID PRN omeprazole 20 mg PO DAILY pravastatin 40 mg PO DAILY tramadol 100 mg (2 x 50 mg) PO BID PRN venlafaxine ER 37.5 mg PO DAILY Xeljanz XR (tofacitinib) 11 mg PO DAILY NS HPI Comments Details: This is a 68-year-old female with seropositive RA who presents for follow-up. She remains on Xeljanz 11 mg p.o. daily She states that her RA is well controlle d overall. She states that she has been having low back pain that is nonradiating. She states that she has had this for years but it seems to be worse recently. Last visit she had a steroid injection for right trochanteric bursitis with improvement. She states that the injection seems to be losing effectiveness. She continues to have intermittent coughing related to inability to clear her throat. [facility] Medical History Dysphagia Trochanteric bursitis, right hip Generalized osteoarthritis of multiple sites Long-term use of immunosuppressant medication Dyspnea on exertion Seropositive rheumatoid arthritis Cough COPD (chronic obstructive pulmonary disease) Surgical History History of hand surgery History of bunionectomy History of appendectomy Family History Mother HTN (hypertension) Father CVD (cardiovascular disease) Maternal Grandmother Cervical cancer Social History Alcohol intake: current Alcohol intake frequency: holidays/special occasions only Patient Tobacco Use Status: Former Tobacco user Tobacco use type: Cigarette Cigarettes Per Day: 10 Years Smoked: 50 quit 2years ago e-Cigarette/Vaping Use: Never Used Current occupational status: retired Review of Systems ENT Reports dysphagia Resp Reports cough GI Reports dysphagia Musc Reports back pain, Reports arthralgias and Reports stiffness Physical Exam Vital Signs: Last Vital Signs Pulse 87 01/21/24 08:20 BP 122/68 01/21/24 08:20 Pulse Ox 99 01/21/24 08:20 Oxygen Delivery Method Room Air 01/21/24 08:20 BMI result Body Mass Index 26.8 Const General: cooperative, healthy appearing and comfortable Nutritional Appearance: overweight Orientation/consciousness: patient oriented x3 Limitations: no limitations HEENT Head: Yes normocephalic and Yes atraumatic Mouth: moist mucous membranes Resp Effort & Inspection: Actively coughing Quality: dry Auscultation: clear to auscultation bilaterally Cardio Rate: regular rate Skin Other: Few superficial bruises on her forearms Neuro General: patient oriented x3 Extrem Other: Deformity and fusion of right wrist but no active synovitis Limited left wrist flexion and extension but no active synovitis Normal range of motion of elbows and shoulders without pain Bilateral lower lumbar paraspinal muscle tenderness Right trochanteric bursa area tenderness Normal nailfold capillaroscopy Assessment & Plan Assessment & Plan (1) Seropositive rheumatoid arthritis: Comment: ++RF+++CCP dx 2002 MTX-dates unknown Enbrel 08/2015-07/2016 Arava 11/2016- 09/2018 Xeljanz 09/2018- present Code(s): M05.9 - Rheumatoid arthritis with rheumatoid factor, unspecified Category: Medical Plan: This is a 68-year-old female with seropositive RA deformities who presents for follow-up. Doing well overall with no active synovitis on Xeljanz 11 mg p.o. daily. Discussed the black box warning of Xeljanz including mildly increased risk of cardiovascular events, thromboembolic phenomenon and cancers. Patient fully aware. This time it looks like Xeljanz has been quite effective for controlling her RA. Patient has had 2 or 3 respiratory infections over the last year. I think if patient continues to develop such infections, we may consider switching it to her DMARDs. Can consider Orencia Continue Xeljanz 11 mg p.o. daily Labs before next visit in 3 months (2) Dysphagia: Comment: DESCRIBES DIFFICULTY IN SWALLOWING OFF AND ON, WITHOUT ANY SPECIFIC REASON. NO DIFFERENCE WHETHER IT IS LIQUID OR SOLID FOOD. AFTER SWALLOWING SHE HAS DISCOMFORT IN THE THROAT. Code(s): R13.10 - Dysphagia, unspecified Category: Medical Plan: Barium swallow was ordered by Dr. Carrera. Advised patient to consider evaluation by ENT (3) Trochanteric bursitis, right hip: Code(s): M70.61 - Trochanteric bursitis, right hip Category: Medical Plan: Injected by Makenna Mott 10/2023, with improvement, now pain starting to come back. Referred to PT (4) Generalized osteoarthritis of multiple sites: Code(s): M15.9 - Polyosteoarthritis, unspecified Category: Medical (5) Long-term use of immunosuppressant medication: Code(s): Z79.60 - correction (current) use of unspecified immunomodulators and immunosuppressants Category: Medical Plan: Monitor safety labs Advised patient to get Shingrix vaccine (6) Lumbar degenerative disc disease: Code(s): M51.36 - Other intervertebral disc degeneration, lumbar region Category: Medical Plan: Referred to PT (7) Age related osteoporosis: Comment: on alendronate since December 2020, repeat DEXA 2023 with improvement. Code(s): M81.0 - Age-related osteoporosis without current pathological fracture Category: Medical Qualifiers: Presence of current pathological fracture: without current pathological fracture Qualified Code(s): M81.0 - Age-related osteoporosis without current pathological fracture Plan: Continue with alendronate 70 mg p.o. weekly Plan I spent 47 minutes reviewing patient's chart, evaluating patient, ordering diagnostic workup, counseling patient and documenting in the chart Orders: Orders Complete Blood Count Auto Diff 3 Months M05.9 - Rheumatoid arthritis with rheumatoid factor, unspecified Hepatitis A,B,C Profile 3 Months Z11.59 - Encounter for screening for other viral diseases T Spot TB 3 Months Z11.7 - Encounter for testing for latent tuberculosis infection Vitamin D 25-OH (D2 and D3) 3 Months E55.9 - Vitamin D deficiency, unspecified PT Evaluation and Treatment Today M51.36 - Other intervertebral disc degeneration, lumbar region, M70.61 - Trochanteric bursitis, right hip Comprehensive Met. Panel 3 Months M05.9 - Rheumatoid arthritis with rheumatoid factor, unspecified C Reactive Protein 3 Months M05.9 - Rheumatoid arthritis with rheumatoid factor, unspecified Erythrocyte Sedimentation Rate 3 Months M05.9 - Rheumatoid arthritis with rheumatoid factor, unspecified Coding Level of Care Code Est Pt Level 5 (78779) Complex EM visit Add On G2211 Diagnoses Seropositive rheumatoid arthritis M05.9 Dysphagia R13.10 Trochanteric bursitis, right hip M70.61 Generalized osteoarthritis of multiple sites M15.9 Long-term use of immunosuppressant medication Z79.60 Lumbar degenerative disc disease M51.36 Age-related osteoporosis without current pathological fracture M81.0 Presence of current pathological fracture: without current pathological fracture
== END 2024-01-21 09:02 | disposition home or self-care (01) ==
PROVIDERS: PCP Internal Medicine; Visit Provider Student in an Organized Health Care Education/Training Program
DX: M05.79 Rheumatoid arthritis with rheumatoid factor of multiple sites without organ or systems involvement (principal); R13.10 Dysphagia, unspecified; M70.61 Trochanteric bursitis, right hip; M15.9 Polyosteoarthritis, unspecified; Z79.60 Long term (current) use of unspecified immunomodulators and immunosuppressants; M51.36 Other intervertebral disc degeneration, lumbar region; M81.0 Age-related osteoporosis without current pathological fracture
CPT/HCPCS: 99215

== ENCOUNTER → 2024-01-21 08:18 | Outpatient (BNVA) | payer BC, SELFPAY | PROVIDERS: PCP Internal Medicine; Visit Provider Student in an Organized Health Care Education/Training Program ==

== ENCOUNTER 2024-03-04 09:23 | Outpatient (AMB) | payer BC, SELFPAY ==
--- NOTE | 2024-03-04 09:24 | MHC.OFFVIS ---
Vital Signs 03/04/24 09:25 Height 4 ft 11 in Weight 132 lb BMI 26.7 Intake Visit Reasons: LT Displaced fracture of 5th metacarpal bone Intake Note: Jocelyn is a 68 yo left hand dominant female who presents today for evaluation of a displaced fracture of neck of fifth metacarpal bone, left hand, DOI 02/26/24. Patient was evaluated at [facility] on 02/26/24. She reports she fell face down while moving around in her bedroom. Denies numbness, tingling, finger locking. She states she is unable to bend her fingers or really move them . Patient reports taking ibuprofen for the swelling and Tramadol for pain without relief. Patient states her pain is on the dorsal aspect of the left hand. She denies prior injuries or surgeries to the left hand. Allergies codeine Allergy (Unknown, Verified 03/04/24 09:25) Rash latex [LATEX] Allergy (Unknown, Verified 03/04/24 09:25) ANGIOEDEMA morphine Allergy (Unknown, Verified 03/04/24 09:25) Vomiting penicillin V Allergy (Unknown, Verified 03/04/24 09:25) Unknown HPI HPI LT Displaced fracture of 5th metacarpal bone: Details: Jocelyn is a 68 year old right hand dominant woman who presents for a left hand injury, after a fall, DOI: 02/26/24 She was seen in [place] [facility] and placed in a short arm splint. She complains of pain in her left hand. She says she has limited motion of her fingers and this causes increased pain. She was placed in a splint with her fingers held in extension, which was removed today for radiographs. She finds no relief from Ibuprofen or Tramadol. She says her swelling has improved, but it was severe when she was placed in her splint. She denies any locking, catching, numbness, or tingling. She says she injured her right knee during her all, and since her injury she has complaints of weakness, instability, and pain, along with a popping sensation when standing from a seated position. She was told there was no fracture or dislocation seen on X-rays. She denies any prior surgeries or treatment for her left hand & wrist, but say she has had ~5 surgeries for her right hand & wrist at an outside clinic. She has a Hx of RA and follows with Dr. Johnson for this. [facility] Medical History Dysphagia Trochanteric bursitis, right hip Generalized osteoarthritis of multiple sites Long-term use of immunosuppressant medication Dyspnea on exertion Seropositive rheumatoid arthritis Cough COPD (chronic obstructive pulmonary disease) Surgical History History of hand surgery History of bunionectomy History of appendectomy Family History Mother HTN (hypertension) Father CVD (cardiovascular disease) Maternal Grandmother Cervical cancer Social History (Updated 03/04/24 @ 09:40 by MELISSA Mccoy) Alcohol intake: current Alcohol intake frequency: holidays/special occasions only Patient Tobacco Use Status: Former Tobacco user Tobacco use type: Cigarette Cigarettes Per Day: 10 Years Smoked: 50 quit 2years ago e-Cigarette/Vaping Use: Never Used Current occupational status: retired Current 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: left 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 Review of Systems Const All systems reviewed & are unremarkable except as noted in HPI and below Physical Exam Vital Signs: BMI result Body Mass Index 26.7 Const General: cooperative, healthy appearing and no acute distress Orientation/consciousness: patient oriented x3 HEENT Head: Yes normocephalic and Yes atraumatic Eyes EOM: EOMs intact bilaterally Resp Effort & Inspection: normal respiratory effort and able to speak in complete sentences Cardio Jugular venous distension: no JVD Skin General skin exam: turgor normal Rashes: no rashes Neuro General: patient oriented x3 Extrem Other: Evaluation of Left Upper Extremity: The patient is alert, oriented, and in no acute distress Neuro: Median, Ulnar, Radial nerves motor and sensory intact and sensation is normal to the tips of all digits Vascular: Cap refill brisk ROM: Initially she was splinted with her fingers in extension We worked on ROM exercises at home, before leaving clinic she could bring all her fingers to a weak closed fist and back into full extension She can oppose her thumb to all digits Wrist ROM: 30 degrees extension & flexion, she says thi is closed to her ROM prior to her injury Skin: No lacerations or abrasions. General: No Erythema or evidence of infection. Mild resolving ecchymosis & swelling She showed me a picture with a large amount of swelling, which I suspect was due to the wrappings being too tight. The swelling today is much more mild Most tender over the fracture site Radiographs: 3 views of the left hand were taken and viewed by me today in clinic. They show a 5th metacarpal neck fracture, somewhat impacted & with some radial translation on the PA view. She has generalized arthritic changes throughout her hand & wrist. Psych Appearance: grossly normal Affect: normal affect Attitude: cooperative Office Procedures AMB Fracture Care Details: Fracture care, 5th metacarpal 94536 Fracture Billing Code: Fracture Billing Code Assessment & Plan Assessment & Plan (1) Fracture of neck of fifth metacarpal bone of left hand: Code(s): S62.337A - Displaced fracture of neck of fifth metacarpal bone, left hand, initial encounter for closed fracture Category: Medical (2) Stiffness of right hand joint: Code(s): M25.641 - Stiffness of right hand, not elsewhere classified Category: Medical (3) Seropositive rheumatoid arthritis: Comment: ++RF+++CCP dx 2002 MTX-dates unknown Enbrel 08/2015-07/2016 Arava 11/2016- 09/2018 Xelamira 09/2018- present Code(s): M05.9 - Rheumatoid arthritis with rheumatoid factor, unspecified Category: Medical (4) Right knee pain: Code(s): M25.561 - Pain in right knee Category: Medical Plan Assessment & Plan: 1. Left 5th metacarpal neck fracture, somewhat impacted & with radial translation From a fall, DOI: 02/26/24 I educated her about this condition I discussed operative and non-operative treatment options I recommend we manage this conservatively She was placed in a velcro wrist splint to be worn with daily activities for the next 4 weeks. She will remove this when at home at rest to work on gentle wrist range of motion and avoid stiffness, and at night I discussed activity modification, she is to lift nothing heavier than a cellphone for the next 4 weeks She will work on gentle finger ROM exercises in her splint She will follow up in 3-4 weeks, with X-rays, 3 V L hand OOP This can be done with KAYLYN Batista 2. Right hand & wrist stiffness She was placed in a splint with her fingers held in extension following her injury She will worked on ROM exercises in clinic, and she will work on ROM exercises at home 3. Rheumatoid arthritis Left wrist significantly affected radiographically, but not particularly problematic for the patient. Gentle wrist ROM exercises to avoid stiffness 4. Right knee pain, S/P fall DOI: 02/26/24 She will make an appointment to be seen in our office for this. Scribed for Awilda Drummond MD by Anibal Rodríguez, medical assistant dermatology, on 03/04/24 at 9:50 AM, EST. Orders: Orders XR hand LT min 3V Today M79.642 - Pain in left hand Coding Level of Care Code New Pt Level 4 (76841) Diagnoses Fracture of neck of fifth metacarpal bone of left hand S62.337A Stiffness of right hand joint M25.641 Seropositive rheumatoid arthritis M05.9 Right knee pain M25.561 CPT Codes Fracture Care - Fracture Billing Code: Fracture Billing Code ([id number])
[2024-03-04 09:25] VITALS: BMI 26.7
== END 2024-03-04 10:14 | disposition home or self-care (01) ==
LOC: HO.HOS 09:24
PROVIDERS: PCP Internal Medicine; Visit Provider Orthopaedic Surgery
DX: S62.337A Displaced fracture of neck of fifth metacarpal bone, left hand, initial encounter for closed fracture (principal); M25.641 Stiffness of right hand, not elsewhere classified; M05.9 Rheumatoid arthritis with rheumatoid factor, unspecified; M25.561 Pain in right knee
CPT/HCPCS: 99213

== ENCOUNTER 2024-03-04 13:25 | Outpatient (REF) | payer BC, SELFPAY ==
--- NOTE | ~2024-03-04 | XR_ITS ---
EXAMINATION: XR HAND LEFT 4 VIEWS CLINICAL INFORMATION: Pain in left hand M79.642. COMPARISON: None available TECHNIQUE: PA, lateral, and oblique views of the left hand. FINDINGS: There is an acute transverse fracture through the fifth metacarpal head with radial angulation and 0.4 cm impaction. No evidence of intra-articular extension. Moderate to severe arthrosis of the first metacarpophalangeal joint and first carpometacarpal joint. Arthrosis throughout the carpal bones with joint space narrowing, including at the radiocarpal joint. Otherwise, the osseous structures in the hand are in anatomic alignment with joint spaces maintained. No erosions or soft tissue calcifications. XR/XR hand LT min 3V IMPRESSION: 1. Acute transverse fracture through the fifth metacarpal head with radial angulation and 0.4 cm impaction. 2. Moderate to severe arthrosis of the first metacarpophalangeal joint and first carpometacarpal joint. Electronically signed by: Teresa Monique DO 04/18/2024 09:03 AM [facility]
== END 2024-03-04 13:26 | disposition home or self-care (01) ==
LOC: HO.HOSX 13:25
PROVIDERS: Visit Provider Orthopaedic Surgery
DX: M79.642 Pain in left hand (principal)
CPT/HCPCS: 73130

== ENCOUNTER 2024-03-26 07:54 | Outpatient (REF) | payer BC, SELFPAY | END 2024-03-26 07:55 | disposition home or self-care (01) | LOC: HO.HOSX 07:54 | DX: M79.642 Pain in left hand (principal) | CPT/HCPCS: 73130 ==

== ENCOUNTER 2024-03-26 09:17 | Outpatient (AMB) | payer BC, SELFPAY ==
--- NOTE | 2024-03-26 09:19 | A.OFFVIS_ITS ---
Intake Visit Reasons: OV - Left 5th Metacarpal Fracture - 02/26/24 Intake Note: Jocelyn is a 68 year old right hand dominant female who presents today for a follow up visit for her fracture of neck of fifth metacarpal bone of left hand s/p fall DOI: 02/26/2024. Pt states she has been wearing her brace when she is n't at home and states that her 5th metacarpal is still painful all the time. She states it is a throbbing pain. Pt states her ROM is okay and is able to move her hand and fingers. Allergies codeine Allergy (Unknown, Verified 03/26/24 09:20) Rash latex [LATEX] Allergy (Unknown, Verified 03/26/24 09:20) ANGIOEDEMA morphine Allergy (Unknown, Verified 03/26/24 09:20) Vomiting penicillin V Allergy (Unknown, Verified 03/26/24 09:20) Unknown HPI HPI OV - Left 5th Metacarpal Fracture - 02/26/24: Details: Patient is a 68-year-old female who presents for 4 week follow-up evaluation status post left 5th metacarpal neck fracture, date of injury 02/26/2024. Today, the patient reports that she is feeling better, but she is still experiencing some discomfort in the base of the left small finger and the left 5th metacarpal head and neck region. The patient describes this pain as throbbing, and has remained fairly consistent since date of injury. Patient states that she has been consistently wearing the Velcro wrist splint with daytime activities, but did not remember to wear to the office today. Patient reports that his pain in her left small finger worsens with flexion of the digit. Patient also states that if she attempts to adduct the digit away from t he hand, this causes discomfort. Patient denies any numbness or tingling in the left upper extremity. No other acute complaints or concerns at this time. FOR[facility]LY [facility] Medical History Dysphagia Trochanteric bursitis, right hip Generalized osteoarthritis of multiple sites Long-term use of immunosuppressant medication Dyspnea on exertion Seropositive rheumatoid arthritis Cough COPD (chronic obstructive pulmonary disease) Surgical History History of hand surgery History of bunionectomy History of appendectomy Family History Mother HTN (hypertension) Father CVD (cardiovascular disease) Maternal Grandmother Cervical cancer Social History (Updated 03/04/24 @ 09:40 by MELISSA Mccoy) Alcohol intake: current Alcohol intake frequency: holidays/special occasions only Patient Tobacco Use Status: Former Tobacco user Tobacco use type: Cigarette Cigarettes Per Day: 10 Years Smoked: 50 quit 2years ago e-Cigarette/Vaping Use: Never Used Current occupational status: retired Current occupation: left handed Physical Exam Const General: cooperative, healthy appearing and no acute distress Orientation/consciousness: patient oriented x3 HEENT Head: Yes normocephalic and Yes atraumatic Eyes EOM: EOMs intact bilaterally Resp Effort & Inspection: normal respiratory effort and able to speak in complete sentences Cardio Jugular venous distension: no JVD Skin General skin exam: turgor normal Rashes: no rashes Neuro General: patient oriented x3 Extrem Other: Evaluation of Left Upper Extremity: The patient is alert, oriented, and in no acute distress Neuro: Median, Ulnar, Radial nerves motor and sensory intact and sensation is normal to the tips of all digits Vascular: Cap refill brisk ROM: Initially she was splinted with her fingers in extension We worked on ROM exercises at home, before leaving clinic she could bring all her fingers to a weak closed fist and back into full extension She can oppose her thumb to all digits Wrist ROM: 30 degrees extension & flexion, she says thi is closed to her ROM prior to her injury Skin: No lacerations or abrasions. General: No Erythema or evidence of infection. Mild resolving ecchymosis & swelling She showed me a picture with a large amount of swelling, which I suspect was due to the wrappings being too tight. The swelling today is much more mild Most tender over the fracture site Radiographs: 3 views of the left hand were taken and viewed by me today in clinic. They show a 5th metacarpal neck fracture, somewhat impacted & with some radial translation on the PA view with evidence of interval bony healing. She has generalized arthritic changes throughout her hand & wrist. Psych Appearance: grossly normal Affect: normal affect Attitude: cooperative Assessment & Plan Assessment & Plan (1) Stiffness of right hand joint: Code(s): M25.641 - Stiffness of right hand, not elsewhere classified Category: Medical (2) Fracture of neck of fifth metacarpal bone of left hand: Code(s): S62.337A - Displaced fracture of neck of fifth metacarpal bone, left hand, initial encounter for closed fracture Category: Medical (3) Seropositive rheumatoid arthritis: Comment: ++RF+++CCP dx 2002 MTX-dates unknown Enbrel 08/2015-07/2016 Arava 11/2016- 09/2018 Xelamira 09/2018- present Code(s): M05.9 - Rheumatoid arthritis with rheumatoid factor, unspecified Category: Medical (4) Right knee pain: Code(s): M25.561 - Pain in right knee Category: Medical Plan Assessment & Plan: 1. Left 5th metacarpal neck fracture, somewhat impacted & with radial translation From a fall, DOI: 02/26/24 Patient is educated that she should continue to wear her Velcro wrist splint with daytime activities, but can remove when at home, at rest, or while sleeping. Patient is also provided with some jayde tape to wear with daytime activities as well in order to prevent any excessive lateral movement of the finger prevent displacement fracture I discussed activity modification, she is to lift nothing heavier than a cellphone for the next 4 weeks She will work on gentle finger ROM exercises in her splint Patient is also referred to occupational therapy Patient will follow-up in 4 weeks with repeat x-rays, sooner with any acute concerns 2. Right hand & wrist stiffness She was placed in a splint with her fingers held in extension following her injury She will worked on ROM exercises in clinic, and she will work on ROM exercises at home Patient was also referred to occupational therapy for range of motion of the right hand in the setting of stiffness 3. Rheumatoid arthritis Left wrist significantly affected radiographically, but not particularly problematic for the patient. Gentle wrist ROM exercises to avoid stiffness 4. Right knee pain, S/P fall DOI: 02/26/24 She will make an appointment to be seen in our office for this. Orders: Orders OT Evaluation and Treatment Today M25.641 - Stiffness of right hand, not elsewhere classified, S62.337A - Displaced fracture of neck of fifth metacarpal bone, left hand, initial encounter for closed fracture XR hand LT min 3V Today M79.642 - Pain in left hand Coding Level of Care Code Global (68816) Diagnoses Stiffness of right hand joint M25.641 Fracture of neck of fifth metacarpal bone of left hand S62.337A Seropositive rheumatoid arthritis M05.9 Right knee pain M25.561
== END 2024-03-26 10:00 | disposition home or self-care (01) ==
PROVIDERS: PCP Internal Medicine
DX: M25.641 Stiffness of right hand, not elsewhere classified (principal); S62.337A Displaced fracture of neck of fifth metacarpal bone, left hand, initial encounter for closed fracture; M05.9 Rheumatoid arthritis with rheumatoid factor, unspecified; M25.561 Pain in right knee
CPT/HCPCS: 99213

== ENCOUNTER 2024-07-17 09:28 | Outpatient (REF) | payer BC, SELFPAY ==
[2024-07-17 10:37] LABS: MANUAL DIFF FLAG NO
[2024-07-17 10:55] LABS: Basophils Absolute Auto 0.1 X10*3/uL (0.0-0.2); Basophils Percent Auto 0.7 % (0-2); Eosinophils Absolute Auto 0.2 X10*3/uL (0.0-0.4); Hematocrit 37.1 % (37.0-47.0); Hemoglobin 11.6 g/dl (12.0-16.0); Imm Gran Abs Auto 0.02 X10*3/uL (0.00-0.03); Imm Gran Pct Auto 0.3 % (0.0-0.4); Lymphocytes Absolute Auto 1.4 X10*3/uL (1.2-4.9); Lymphocytes Percent Auto 20.8 % (20-40); Mean Corpuscular HGB Conc 31.3 g/dl (31.0-35.0); Mean Corpuscular Hemoglobin 24.3 pg (27.0-33.0); Mean Corpuscular Volume 77.8 fL (80.0-98.0); Mean Platelet Volume 10.1 fL (9.4-12.3); Monocytes Absolute Auto 0.7 X10*3/uL (0.1-1.2); Neutrophils Absolute Auto 4.4 x10*3/uL (2.0-8.3); Neutrophils Percent Auto 65.2 % (45-73); Platelet Count 216 X10*3/uL (160-400); Red Blood Count 4.77 X10*6/uL (4.20-5.50); White Blood Count 6.7 X10*3/uL (4.8-10.8)
--- OUTSIDE RECORDS SUMMARY | 2024-07-17 11:06 | XMS_ITS | Continuity of Care Document ---
Author Organization [facility] Address [address] [place] [address]- Care Team Providers Care Assistant Foreman Name Role Phone David Chris MD Primary Care Physician Encounter [facility] ACCT R [id number] Date(s): 07/03/24 - 07/10/24 [facility] [address] [place], [place] [address] Attending Physician: David Chris MD Encounter Type: Office Visit Allergies, Adverse Reactions, Alerts Substance Criticality Severity Reaction Reaction Severity Status codeine Hives O/E - respiratory distress Active penicillin Rash Hives Active morphine gi upset Active Latex O/E - respiratory distress Active Xeljanz XR Shortness of breath Active Pen-VK Active Immunizations Given and Recorded Vaccine Date Status Refusal Reason pneumococcal 20-valent conjugate vaccine 1 05/03/23 Given SARS-CoV-2 (COVID-19) mRNA BNT-162b2 vac 08/01/20 Recorded SARS-CoV-2 (COVID-19) mRNA BNT-162b2 vac 07/11/20 Recorded influenza virus vaccine, inactivated 2 02/11/19 Gi abhijeet influenza virus vaccine, inactivated 3 03/07/12 Gi abhijeet influenza virus vaccine, inactivated 4 03/09/11 Gi abhijeet pneumococcal 13-valent vaccine 12/24/18 Recorded tetanus/diphtheria/pertussis, acel(Tdap) 5 06/07/15 Given FluLaval (oldterm) 01/22/09 Given Influenza Virus Vaccine (oldterm) 6 02/21/08 Given tetanus-diphtheria toxoids (Td) 04/06/05 Given 1Result Comment: [id number] given w/out incident 2Result Comment: [id number] given w/out incident 3Admin Note: [facility] 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 Refills 0, Maintenance, Pain , Mild, 10/05/23 11:50:00 AM EDT, Route to Pharmacy Electronically, [facility], Partial fill upon patient request if the prescription is for a schedule II opioid drug., 151, cm, 10/05/23 11:15:00 EDT, Height, 68, kg, 10/01/23 3:21:00 EDT, Dry Weight Start Date: 10/05/23 Status: Ordered Quantity: 50.0 Unit: tablet Repeat number: 1 alendronate 70 mg oral tablet 1 tablet = 70 mg, By Mouth, Every week, # 4 tablet, 0 Refills, Maintenance, 10/26/23 11:21:00 AM EDT, Tablet, Partial fill upon patient request if the prescription is for a schedule II opioid drug. Start Date: 10/26/23 Status: Ordered Quantity: 4.0 Unit: tablet Repeat number: 1 Breo Ellipta 100 mcg-25 mcg/inh inhalation powder 1 puffs, Inhalation, Daily, # 30 each, 0 Refills, Maintenance, 03/13/22 4:21:00 PM EST, Powder, Partial fill upon patient request if the prescription is for a schedule II opioid drug. Start Date: 03/13/22 Status: Ordered Quantity: 30.0 Unit: each Repeat number: 1 cane cane, See Instructions, # 1 each, Refills 0, Tot. Refills 0, Maintenance, use for mobility. Dx: M06.91, Z91.61 lifetime use. Ht: 4'11 , Wt: 149lbs, 05/03/23 3:45:00 PM EST, Supply Start Date: 05/03/23 Status: Ordered Quantity: 1.0 Unit: each Repeat number: 1 ferrous sulfate 325 mg oral tablet 1 tablet = 325 mg, By Mouth, 2 times a day, # 180 tablet, 3 Refills, Maintenance, 05/15/24 9:51:00 AMEST, Tablet, [facility] #[id number], Partial fill upon patient request if the prescription is for a schedule II opioid drug., 146, cm, 05/15/24 9:37:00 EST, Height, 62.5, kg, 03/05/24 23:11:00 EDT, Dry Weight Start Date: 05/15/24 Stop Date: 05/10/25 Status: Ordered Quantity: 180.0 Unit: tablet Repeat number: 4 furosemide 20 mg oral tablet 1, tablet, By Mouth, Daily, # 90 tablet, Refills 1, Maintenance, 07/03/24 10:06:00 AM EST, Route to Pharmacy Electronically, [facility] #[id number], 146, cm, 05/15/24 10:04:00 EST, Height, 62.5, kg, 03/05/24 23:11:00 EDT, Dry Weight Start Date: 07/03/24 Status: Ordered Quantity: 90.0 Unit: tablet Repeat number: 1 lidocaine 5% topical film 1 patch, Topically, Daily, remove patches after 12 hours, # 30 patch, 0 Refills, Maintenance, 10/05/23 11:50:00 AM EDT, Patch, [facility], Partial fill upon patient request if the prescription is for a schedule II opioid drug., 1 patch Topically Daily,Instr:remove patches after 12 hours, 151, cm, 10/05/23 11:15:00 EDT, Height, 68, kg, 10/01/23 3:21:00 EDT, Dry Weight Start Date: 10/05/23 Status: Ordered Quantity: 30.0 Unit: patch Repeat number: 1 lisinopril 5 mg oral tablet 1, tablet, By Mouth, Daily, # 90 tablet, Refills 3, Maintenance, 06/23/24 2:44:00 PM EST, Route to Pharmacy Electronically, [facility] #[id number], 146, cm, 05/15/24 10:04:00 EST, Height, 62.5, kg, 03/05/24 23:11:00 EDT, Dry Weight Start Date: 06/23/24 Status: Ordered Quantity: 90.0 Unit: tablet Repeat number: 1 omeprazole 20 mg oral enteric coated capsule 1 capsule, By Mouth, Daily, # 90 capsule, 3 Refills, Maintenance, 05/15/24 10:01:00 AM EST, [facility] #[id number], 146, cm, 05/15/24 9:37:00 EST, Height, 62.5, kg, 03/05/24 23:11:00 EDT, Dry Weight Start Date: 05/15/24 Stop Date: 05/10/25 Status: Ordered Quantity: 90.0 Unit: capsule Repeat number: 4 Paxlovid 150 mg-100 mg oral tablet See Instructions, take 3 tablets as labelled twice a day for x 5 days, # 30 tablet, 0 Refills, Maintenance, 07/03/24 1:04:00 PM EST, [facility] #[id number], GFR 63 05/15/24, take 3 tablets as labelled twice a day for x 5 days, 146, cm, 05/15/24 10:04:00 EST, Height, 62.5, kg, 03/05/24 23:11:00 EDT, Dry Weight Start Date: 07/03/24 Status: Ordered Quantity: 30.0 Unit: tablet Repeat number: 1 pravastatin 40 mg oral tablet 1 tablet, By Mouth, Daily, # 90 tablet, 1 Refills, Maintenance, 05/30/24 2:34:00 PM EST, [facility] #[id number], 146, cm, 05/15/24 10:04:00 EST, Height, 62.5, kg, 03/05/24 23:11:00 EDT, Dry Weight Start Date: 05/30/24 Status: Ordered Quantity: 90.0 Unit: tablet Repeat number: 1 traMADol 50 mg oral tablet 2 tablet = 100 mg, By Mouth, Every 12 hours, PRN for pain, # 60 tablet, 0 Refills, Maintenance, 02/04/21 3:09:00 PM EDT, Tablet, Partial fill upon patient request if the prescription is for a scheduleII opioid drug. Start Date: 02/04/21 Status: Ordered Quantity: 60.0 Unit: tablet Repeat number: 1 traZODone 50 mg oral tablet 50 mg, 1, tablet, By Mouth, Daily at bedtime, # 30 tablet, Refills 5, Tot. Refills 5, Maintenance, 05/15/24 9:53:00 AM EST, Route to Pharmacy Electronically, [facility] #[id number], Partial fill upon patient request if the prescription is for a schedule II opioid drug., 146, cm, 05/15/24 9:37:00EST, Height, 62.5, kg, 03/05/24 23:11:00 EDT, Dry Weight Start Date: 05/15/24 Stop Date: 11/11/24 Status: Ordered Quantity: 30.0 Unit: tablet Repeat number: 6 venlafaxine 150 mg oral capsule, extended release 1 capsule = 150 mg, By Mouth, Daily, # 90 capsule, 4 Refills, Maintenance, 05/15/24 9:53:00 AM EST, ER Capsule, [facility] #[id number], Partial fill upon patient request if the prescription is fora schedule II opioid drug., 146, cm, 05/15/24 9:37:00 EST, Height, 62.5, kg, 03/05/24 23:11:00 EDT,Dry Weight Start Date: 05/15/24 Stop Date: 08/08/25 Status: Ordered Quantity: 90.0 Unit: capsule Repeat number: 5 Ventolin HFA 108 mcg/inh inhalation aerosol with adapter 2 puffs, Inhalation, 4 times a day, PRN for wheezing, # 6.7 Gm, 1 Refills, Maintenance, 10/05/23 11:50:00 AM EDT, Aerosol, [facility], Partial fill upon patient request if the prescription is for a schedule II opioid drug., 151, cm, 10/05/23 11:15:00 EDT, Height, 68, kg, 10/01/23 3:21:00 EDT, Dry Weight Start Date: 10/05/23 Stop Date: 12/04/23 Status: Ordered Quantity: 6.7 Unit: g Repeat number: 2 Vitamin C 500 mg oral tablet 1 tablet = 500 mg, By Mouth, Daily, # 30 tablet, 6 Refills, Maintenance, 05/04/23 8:11:00 AM EST, Tablet, [facility] #[id number], Partial fill upon patient request if the prescription is for a schedule II opioid drug., 150, cm, 05/03/23 15:35:00 EST, Height, 66.1, kg, 03/16/23 14:36:00 EST, Dry Weight Start Date: 05/04/23 Stop Date: 11/30/23 Status: Ordered Quantity: 30.0 Unit: tablet Repeat number: 7 Xeljanz XR 11 mg oral tablet, extended release 1 tablet = 11 mg, By Mouth, Daily, # 30 tablet, 0 Refills, Maintenance, 03/15/23 6:00:00 PM EST, ER Tablet, Partial fill upon patient request if the prescription is for a schedule II opioid drug. Start Date: 03/15/23 Status: Ordered Quantity: 30.0 Unit: tablet Repeat number: 1 Problem List Condition Confirmation Course Effective Dates Status Health Status Informant COPD with asthma Confirmed 11/04/19 Active Degenerative arthritis of cervical spine Confirmed Active CTS - Carpal tunnel syndrome Confirmed 2008 Active FH: premature coronary heart disease (dad, 50s) Confirmed Active Generalized anxiety disorder Confirmed Active Generalized osteoarthritis Confirmed Active History of COVID-19 1 Confirmed 05/15/23 Active Hypercholesterolemia Confirmed Active Hyperglycemia Confirmed 10/03/23 Active Hypertension Confirmed 05/30/13 Active Insomnia Confirmed Active Low back pain Confirmed Active Degenerative arthritis of lumbar spine Confirmed Active Obese class I Confirmed Active Osteopenia Confirmed 10/15/18 Active Panic attack Confirmed Active Rheumatoid arthritis Confirmed Active Rhinoplasty Confirmed 1980 Active Incidental lung nodule Confirmed Active 1Problem added by Discern Expert Social History Social History Type Response Smoking Status Former smoker; Tobac co user in household: Yes entered on: 05/30/13 Sex Sex Representation Female (finding) Patient Care team information Care Team Personnel Name: Lester Vargas RN Position: [facility] RN Member Role: Primary Care Nurse Name: Hardik Chairez RN Position: [facility] RN Member Role: Primary Care Nurse Name: David Chris MD Position: [facility] Physician - Primary Care Member Role: PCP Address: [address] [place] [address] [facility] [address] Telecom: Name: Joss Zuñiga Position: S Outreach Member Role: Lif[employer] Consulting Physician Name: Jb Shields RN Position: [facility] RN Member Role: Primary Care Nurse Care Team Related Persons Name: SORAIDA CORMIER Name: VERONICA TIJERINA Insurance Providers Guarantor name: ANTHONY LILLIANA Health Plan Information #: 1 Payer: [employer] ELECT Member Number: [id number] Policy Number: NA Group Number: [id number] Health Plan Information #: 2 Payer: [employer] [facility] ELECT Member Number: [id number] Policy Number: NA Group Number: NA
--- OUTSIDE RECORDS SUMMARY | 2024-07-17 11:06 | XMS_ITS | Continuity of Care Document ---
Author Organization [facility] Address [address] [place] [address]- Care Team Providers Care Welder Manufacture Name Role Phone Aries PATEL, David Primary Care Physician Encounter [facility] Date(s): 05/30/24 - 06/29/24 [facility] [address] [place], [place] [address] Encounter Type: Triage Allergies, Adverse Reactions, Alerts Substance Criticality Severity Reaction Reaction Severity Status codeine Hives O/E - respiratory distress Active penicillin Rash Hives Active morphine gi upset Active Latex O/E - respiratory distress Active Pen-VK Active Xeljanz XR Shortness of breath Active Immunizations Given and Recorded Vaccine Date [...] (oldterm) 6 02/21/08 Given tetanus-diphtheria toxoids (Td) 12/1/05 Given 1Result Comment: [id number] given w/out incident 2Result Comment: [id number] given w/out incident 3[facility] Note: [facility] 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 Refills 0, Maintenance, Pain , Mild, 10/05/23 11:50:00 AM EDT, Route to Pharmacy Electronically, [facility], Partial fill upon patient request [...] 3 Refills, Maintenance, 05/15/24 9:51:00 AMEST, Tablet, [facility] #[id number], Partial fill upon patient request if the prescription is for a schedule II opioid drug., 146, cm, 05/15/24 9:37:00 EST, Height, 62.5, kg, 03/05/24 23:11:00 EDT, Dry Weight Start Date: 05/15/24 Stop Date: 05/10/25 Status: Ordered Quantity: 180.0 Unit: tablet Repeat number: 4 furosemide 20 mg oral tablet 1, tablet, By Mouth, Daily, # 90 tablet, Refills 0, Tot. Refills 0, Maintenance, 04/04/24 11:54:00 AM EST, Route to Pharmacy Electronically, [facility] #[id number], 150, cm, 03/05/24 23:11:00 EDT, Height, 62.5, kg, 03/05/24 23:11:00 EDT, Dry Weight Start Date: 04/04/24 Status: Ordered Quantity: 90.0 Unit: tablet Repeat number: 1 lidocaine 5% topical film 1 patch, Topically, Daily, remove patches after 12 hours, # 30 patch, 0 Refills, Maintenance, 10/05/23 11:50:00 AM EDT, Patch, [facility] 3, Partial fill upon patient request [...] 2:44:00 PM EST, Route to Pharmacy Electronically, [facility] #[id number], 146, cm, 05/15/24 10:04:00 EST, Height, 62.5, kg, 03/05/24 23:11:00 EDT, Dry Weight Start Date: 06/23/24 Status: Ordered Quantity: 90.0 Unit: tablet Repeat number: 1 omeprazole 20 mg oral enteric coated capsule 1 capsule, By Mouth, Daily, # 90 capsule, 3 Refills, Maintenance, 05/15/24 10:01:00 AM EST, [facility] #[id number], 146, cm, 05/15/24 9:37:00 EST, Height, 62.5, kg, 03/05/24 23:11:00 EDT, Dry Weight Start Date: 05/15/24 Stop Date: 05/10/25 Status: Ordered Quantity: 90.0 Unit: capsule Repeat number: 4 pravastatin 40 mg oral tablet 1 tablet, By Mouth, Daily, # 90 tablet, 1 Refills, Maintenance, 05/30/24 2:34:00 PM EST, [facility] #[id number], 146, cm, 05/15/24 10:04:00 EST, Height, 62.5, [...] 9:53:00 AM EST, Route to Pharmacy Electronically, [facility] #[id number], Partial fill upon patient request if the [...] Maintenance, 05/15/24 9:53:00 AM EST, ER Capsule, [facility] #[id number], Partial fill upon patient request if the [...] Refills, Maintenance, 10/05/23 11:50:00 AM EDT, Aerosol, [facility] 3, Partial fill upon patient request [...] Refills, Maintenance, 05/04/23 8:11:00 AM EST, Tablet, [facility] #[id number], Partial fill upon patient request if the [...] Team Personnel Name: Lester Vargas RN Position: [facility] RN Member Role: Primary Care Nurse Name: Hardik Chairez RN Position: [facility] RN Member Role: Primary Care Nurse Name: David Chris MD Position: [facility] Physician - Primary Care Member Role: PCP Address: [address] [place] [address] Adult [facility] Pediatric Medicine [address] Telecom: Name: Joss Zuñiga Position: [facility] Outreach Member Role: Lifetime Consulting Physician Name: Jb Shields RN Position: [facility] RN Member Role: Primary Care Nurse Care Team Related Persons Name: SORAIDA CORMIER Name: VERONICA TIJERINA Insurance Providers Guarantor name: ANTHONY TIJERINA Health Plan Information #: 1 Payer: [employer] ELECT Member Number: NA Policy Number: NA Group Number: NA Health Plan Information #: 2 Payer: MEDICARE PART B OUTPT Member Number: NA Policy Number: NA Group Number: NA Health Plan Information #: 3 Payer: [employer] SUP[employer] Member Number: NA Policy Number: NA Group Number: NA
--- OUTSIDE RECORDS SUMMARY | 2024-07-17 11:06 | XMS_ITS | Continuity of Care Document ---
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 Name Role Phone Aries PATEL, David Primary Care Physician Encounter [facility] [place] Date(s): 05/19/24 - 06/18/24 [facility] [address] [place], [place] [address] Encounter Type: Triage Allergies, Adverse Reactions, Alerts [...] tetanus-diphtheria toxoids (Td) 12/1/05 Given 1Result Comment: [id number] given w/out incident 2Result Comment: [id number] given w/out incident 3[facility] Note[facility] 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 Refills 0, Maintenance, Pain , Mild, 10/05/23 11:50:00 AM EDT, Route to Pharmacy Electronically, [facility], Partial fill upon patient [...] 3 Refills, Maintenance, 05/15/24 9:51:00 AMEST, Tablet, [email or web address] #[id number], Partial fill upon patient request if the [...] 11:54:00 AM EST, Route to Pharmacy Electronically, [facility] #[id number], 150, cm, 03/05/24 23:11:00 EDT, Height, 62.5, kg, 03/05/24 23:11:00 EDT, Dry Weight Start Date: 04/04/24 Status: Ordered Quantity: 90.0 Unit: tablet Repeat number: 1 lidocaine 5% topical film 1 patch, Topically, Daily, remove patches after 12 hours, # 30 patch, 0 Refills, Maintenance, 10/05/23 11:50:00 AM EDT, Patch, [facility], Partial fill upon patient request if the prescription is for a schedule II opioid drug., 1 patch Topically Daily,Instr:remove patches after 12 hours, 151, cm, 10/05/23 11:15:00 EDT, Height, 68, kg, 10/01/23 3:21:00 EDT, Dry Weight Start Date: 10/05/23 Status: Ordered Quantity: 30.0 Unit: patch Repeat number: 1 omeprazole 20 mg oral enteric coated capsule 1 capsule, By Mouth, Daily, # 90 capsule, 3 Refills, Maintenance, 05/15/24 10:01:00 AM EST, [facility] #[id number], 146, cm, 05/15/24 9:37:00 EST, Height, 62.5, kg, 03/05/24 23:11:00 EDT, Dry Weight Start Date: 05/15/24 Stop Date: 05/10/25 Status: Ordered Quantity: 90.0 Unit: capsule Repeat number: 4 pravastatin 40 mg oral tablet 1 tablet, By Mouth, Daily, # 90 tablet, 1 Refills, Maintenance, 05/30/24 2:34:00 PM EST, [facility] #[id number], 146, cm, 05/15/24 10:04:00 EST, Height, 62.5, [...] 9:53:00 AM EST, Route to Pharmacy Electronically, [facility] #[id number], Partial fill upon patient request if the [...] Maintenance, 05/15/24 9:53:00 AM EST, ER Capsule, [facility] #[id number], Partial fill upon patient request if the prescription is fora schedule II opioid drug., 146, cm, 05/15/24 9:37:00 EST, Height, 62.5, kg, 03/05/24 23:11:00 EDT,Dry Weight Start Date: 05/15/24 Stop Date: 4/4/26 Status: Ordered Quantity: 90.0 Unit: capsule Repeat number: 5 Ventolin HFA 108 mcg/inh inhalation aerosol with adapter 2 puffs, Inhalation, 4 times a day, PRN for wheezing, # 6.7 Gm, 1 Refills, Maintenance, 10/05/23 11:50:00 AM EDT, Aerosol, [facility], Partial fill upon patient request if [...] Refills, Maintenance, 05/04/23 8:11:00 AM EST, Tablet, [facility] #[id number], Partial fill upon patient request if the [...] Team Personnel Name: Lester Vargas RN Position: [facility] RN Member Role: Primary Care Nurse Name: Hardik Chairez RN Position: S RN Member Role: Primary Care Nurse Name: David Chris MD Position: [facility] Physician - Primary Care Member Role: PCP Address: [address] [place] [address] Adult & Pediatric Medicine [address] Telecom: Name: Joss Zuñiga Position: [facility] Outreach Member Role: Lifetime Consulting Physician Name: Jb Shields RN Position: [facility] RN Member Role: Primary Care Nurse Care Team Related Persons Name: SORAIDA CORMIER Name: VERONICA TIJERINA Insurance Providers Guarantor name: ANTHONY TIJERINA Health Plan Information #: 1 Payer: BL[employer] ELECT Member Number: NA Policy Number: NA Group Number: NA Health Plan Information #: 2 Payer: MEDICARE PART B OUTPT Member Number: NA Policy Number: NA Group Number: NA Health Plan Information #: 3 Payer: BLUE MEDICARE SUPPL Member Number: NA Policy Number: NA Group Number: NA
[2024-07-17 12:00] LABS: Erythrocyte Sedimentation Rate 10 MM/HR (0-20)
[2024-07-17 12:09] LABS: Alanine Aminotransferase 21 U/L (0-31); Albumin Level 3.9 g/dL (3.5-5.0); Alkaline Phosphatase 56 U/L (39-117); Anion Gap 10 (12-20); Aspartate Amino Transferase 34 U/L (5-31); Bilirubin Total 0.3 mg/dL (0.0-1.0); Blood Urea Nitrogen 17 mg/dL (9-16); C Reactive Protein 0.98 mg/dL (< or = 0.50); Calcium 9.1 mg/dL (8.4-10.2); Carbon Dioxide 31 mmol/L (22-29); Chloride 97 mmol/L (96-108); Estimated Glomerular Filt Rate > 60; Glucose Random 84 mg/dL (60-115); Potassium 5.3 mmol/L (3.3-5.1); Sodium 133 mmol/L (135-145)
[2024-07-17 12:56] LABS: HBS Num1 0.03 mIU/mL (0-7.99); HBc Num1 0.13 S/CO (0.00-0.79); HBsAGNum1 0.27 S/CO (0.00-0.99); Hepatitis A Antibody IgM 0.15 Index (0-0.79); Hepatitis B Core Antibody Nonreactive (Nonreactive); Hepatitis B Surface Antigen Negative (Negative); ~HepC Num1 0.17 S/CO (0.00-0.79); ~Hepatitis A Antibody IgM Nonreactive (Nonreactive); ~Hepatitis B Surface Antibody NONREACTIVE (Nonreactive); ~Hepatitis C Antibody Nonreactive (Nonreactive)
[2024-07-21 00:13] LABS: TS Negative Control Passed; TS Panel A 1; TS Panel B 0; TS Positive Control Passed; TSpotTB Negative (Negative)
[2024-07-23 14:04] LABS: Vitamin D 25-OH, D2 <4 ng/mL; Vitamin D 25-OH, D3 81 ng/mL; Vitamin D 25-OH, Total 81 ng/mL (30-100)
== END 2024-07-17 09:29 | disposition home or self-care (01) ==
LOC: HO.10HDL 09:28
PROVIDERS: Visit Provider Student in an Organized Health Care Education/Training Program
DX: M05.9 Rheumatoid arthritis with rheumatoid factor, unspecified (principal); E55.9 Vitamin D deficiency, unspecified; Z11.59 Encounter for screening for other viral diseases; Z11.7 Encounter for testing for latent tuberculosis infection; Z72.89 Other problems related to lifestyle
CPT/HCPCS: 36415; 80053; 82306; 85025; 85652; 86140; 86481; 86704; 86706; 86709; 86803; 87340

== ENCOUNTER 2024-07-22 15:18 | Outpatient (AMB) | payer BC, SELFPAY ==
[2024-07-22 15:20] VITALS: BP 123/66; PULSE 100; O2SAT 96; BMI 28.9
--- NOTE | 2024-07-22 15:20 | A.OFFVIS_ITS ---
Vital Signs 07/22/24 15:20 Height 4 ft 11 in Weight 143 lb BMI 28.9 BP 123/66 Blood Pressure Location Lt brachial Position Sitting Pulse 100 Pulse Source Pulse Oximeter Pulse Oximetry (%) 96 Oxygen Delivery Method Room Air Intake Visit Reasons: RA Intake Note: Patient last seen by Doctor Teodoro Johnson on 01/21/24. Presents today for RA follow up and test results. Allergies codeine Allergy (Unknown, Verified 07/22/24 15:24) Rash latex [LATEX] Allergy (Unknown, Verified 07/22/24 15:24) ANGIOEDEMA morphine Allergy (Unknown, Verified 07/22/24 15:24) Vomiting penicillin V Allergy (Unknown, Verified 07/22/24 15:24) Unknown Medication List - Last Reconciled 07/22/24 by Charlotte Stafford MD albuterol sulfate 90 mcg/actuation 2 puffs inhalation Q4-6H PRN 30 days alendronate 70 mg PO QWEEK ascorbate calcium (vitamin C) 500 mg PO DAILY cholecalciferol (vitamin D3) 50 mcg PO DAILY diclofenac sodium 1% 2 grams topical BID doxycycline monohydrate 100 mg PO BID ferrous sulfate 325 mg PO TID ferrous sulfate (Feosol) 325 mg PO DAILY fluticasone furoate-vilanterol 100-25 mcg/dose (Breo Ellipta) 1 inh inhalation DAILY 30 days furosemide 20 mg PO DAILY lisinopril 5 mg PO DAILY lorazepam 0.5 mg PO BID PRN omeprazole 20 mg PO DAILY pravastatin 40 mg PO DAILY tramadol 100 mg (2 x 50 mg) PO BID PRN venlafaxine ER 75 mg PO DAILY Xeljanz XR (tofacitinib) 11 mg PO DAILY NS HPI Comments Details: Patient is a 69-year-old female with hypertension, hyperlipidemia, COPD, iron deficiency anemia, gout (diet managed), polyarticular osteoarthritis, osteoporosis and seropositive rheumatoid arthritis c/b tendon rupture and repair x 2 on the right hand here today for follow up Interval History: Patient last seen 01/21/[address] Johnson. At that time she was on Xeljanz 11 mg daily and reported that her RA was well controlled. She complained of low back pain which was chronic but had gotten worse recently. Fell in 03/2024 and broke her left hand. Did not need surgery No further gout flares for the past 2 years Rheumatologic History: Seropositive RA ++RF+++CCP dx 2002 MTX-dates unknown Enbrel 08/2015-07/2016 Arava 11/2016- 09/2018 Xeljanz 09/2018- present Osteoporosis on alendronate since December 2020, repeat DEXA 2023 with improvement. Current Rheumatology Medication(s): Xeljanz 11 mg daily Alendronate 70 mg weekly [facility] Medical History Dysphagia Trochanteric bursitis, right hip Generalized osteoarthritis of multiple sites Long-term use of immunosuppressant medication Dyspnea on exertion Seropositive rheumatoid arthritis Cough COPD (chronic obstructive pulmonary disease) Surgical History History of hand surgery History of bunionectomy History of appendectomy Family History Mother HTN (hypertension) Father CVD (cardiovascular disease) Maternal Grandmother Cervical cancer Social History (Updated 03/04/24 @ 09:40 by MELISSA Mccoy) Alcohol intake: current Alcohol intake frequency: holidays/special occasions only Patient Tobacco Use Status: Former Tobacco user Tobacco use type: Cigarette Cigarettes Per Day: 10 Years Smoked: 50 quit 2years ago e-Cigarette/Vaping Use: Never Used Current occupational status: retired Current occupation: left handed Review of Systems Const Details: Review of Systems Constitutional: Denies fever, chills, weight loss ENT: Denies vision changes, eye pain or eye redness, dental caries, dry mouth GI: Denies nausea, vomiting, diarrhea, abdominal pain, change in BM Pulm: Denies SOB, LOPEZ, hemoptysis, wheezing Cards: Denies chest pain, palpitations Skin: Denies Raynaud's, rash, nail changes, photosensitivity, [employer] PROGRAM DIRECTOR: Denies headaches, weakness, paresthesias, recurrent falls MSK: as per HPI All other systems reviewed and are unremarkable except noted above Physical Exam Vital Signs: Last Vital Signs Pulse 100 07/22/24 15:20 BP 123/66 07/22/24 15:20 Pulse Ox 96 07/22/24 15:20 Oxygen Delivery Method Room Air 07/22/24 15:20 BMI result Body Mass Index 28.9 Vital signs reviewed Physical Examination CONSTITUITIONAL Patient alert and cooperative. Well appearing and in no apparent painful distress HEENT Conjunctiva and sclera clear. ?Pupils equal round and reactive to light. ?No lymphadenopathy. ? CHEST/RESPIRATORY SYSTEM Normal respiratory effort and able to speak in complete sentences. ?Clear to auscultation bilaterally. ?No crackles, rales, rhonchi, wheezes heard. CARDIAC SYSTEM Regular rate and rhythm. ?S1 and S2 heard no murmurs. ?Radial pulses intact bilaterally MSK Hands: ?Able to make a fist. has a step deformity in the bone of the 3rd digit on the dorum of the right hand. Mild ulnar deviation bilaterally. No synovitis. Wrists: ?Fixed right wrist 2/2 previous surgeries. Decreased ROM to the left wrist. No synovitis Elbows: Full range of motion without pain. No tenderness, weakness, swelling, increased warmth or erythema. Shoulders: Decreased ROM. No tenderness, weakness, swelling, increased warmth or erythema. Knees: ?Full range of motion. ?No tenderness, swelling, increased warmth or erythema.?No effusion or crepitations Ankles: Full range of motion. ?No tenderness, swelling, increased warmth or erythema. Nodule to the right achilles tendon? Feet: ?Negative squeeze test. ?No tenderness to palpation or swelling of the MTPs. Tender points:?No tenderness to palpation of the bilateral trapezius, supraspin atus, greater trochanters, anterior costochondral junctions, bilateral gluteal areas, bilateral suboccipital muscle insertions SKIN Skin intact without rashes. Results Reviewed Results Reviewed: Laboratory Tests 10/16/23 07/17/24 10:53 09:34 WBC 6.7 RBC 4.77 Hgb 11.6 L Hct 37.1 Plt Count 216 D ESR 59 H 10 Sodium 133 L Potassium 5.3 H D Chloride 97 Carbon Dioxide 31 H BUN 17 H Creatinine 0.79 AST 34 H C-Reactive Protein 3.86 H 0.98 H Total Protein 7.0 Albumin 3.9 Infectious serologies 07/17/24 09:34 Hepatitis A IgM Ab Nonreactive Hep Bs Antigen Negative Hep Bs Antibody NONREACTIVE Hep B Core Total Ab Nonreactive Hepatitis C Ab (EIA) Nonreactive TB Test (T-Spot) Com Negative Assessment & Plan Assessment & Plan (1) Seropositive rheumatoid arthritis: Comment: ++RF+++CCP dx 2002 MTX-dates unknown Enbrel 08/2015-07/2016 Arava 11/2016- 09/2018 Xeljanz 09/2018- present Code(s): M05.9 - Rheumatoid arthritis with rheumatoid factor, unspecified Category: Medical Plan: #Seropositive RA Patient is a 69-year-old female with seropositive rheumatoid arthritis here today for follow up. Rheumatoid arthritis currently in remission. Plan - Continue Xeljanz 11mg daily - RTC 4 months - Labs before visit: CBC, CMP, ESR, CRP, hepatitis panel, T spot (2) Age related osteoporosis: Comment: DEXA 01/2021: AP spine -0.6, Left femur neck -2.2, Left femur total -1.9. FRAX 26.4/5.3 DEXA 10/2023: AP spine -0.2, Left femur neck -1.9, Left femur total -0.4 on alendronate since December 2020, repeat DEXA 2023 with improvement. Code(s): M81.0 - Age-related osteoporosis without current pathological fracture Category: Medical Qualifiers: Presence of current pathological fracture: without current pathological fracture Qualified Code(s): M81.0 - Age-related osteoporosis without current pathological fracture Plan: #Osteoporosis Patient with osteoporosis on alendronate with improvement in DEXA done 10/2023. Had a fall last fall with subsequent nondisplaced fracture to the right hand. Despite the improved bone density she did sustain a fracture after fall. We will continue her alendronate at this time given that there is improvement in her DEXA and after the fall she did not sustain a fracture to her spine or her femur. We will continue the alendronate until 2025 at which point we will offer her a drug holiday. Plan - Alendronate 70mg weekly - f/u Vitamin D - rpt DEXA 2025 and if stable can offer drug holiday (3) Generalized osteoarthritis of multiple sites: Code(s): M15.9 - Polyosteoarthritis, unspecified Category: Medical Plan: #Polyarticular OA Patient with polyarticular osteoarthritis currently stable. She takes tramadol for breakthrough pains and we will refill this today. (4) [facility] (current) use of janus kinase inhibitor: Code(s): Z79.622 - [facility] (current) use of Janus kinase inhibitor Plan: #Long-term Use of PEDRO inhibitor Xeljanz Discussed with patient the benefits and risks of PEDRO inhibitors for the management of the rheumatic condition Benefits include reduce pain, maintenance of remission and reduction of flares Risks include thromboembolic events, skin cancer and nonmelanoma skin cancers, other forms of cancer, cardiovascular alcohol and mortality Advise patient that they are to hold the medication and for up to 1 week after a febrile illness or an open skin wound (5) Encounter for ongoing osteoporosis therapy, bisphosphonates: Code(s): M81.0 - Age-related osteoporosis without current pathological fracture; 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.83 - 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 of bisphosphonates Plan: #Long-term Use of Bisphosphonates Risks and benefits of bisphosphonates in the management of osteoporosis Benefits include improved bone density, decreased fracture risk Risks include atypical femoral fractures, GI upset, esophageal strictures Contraindicated in patients with a creatinine clearance < 30 to 35 ml/min Keep vitamin-D at least 35 ng/mL Plan I spent 32 minutes reviewing the record and labs, taking a history, examining the patient, discussing the treatment plan, ordering diagnostic work up and documenting in the medical record Orders: Orders Complete Blood Count Auto Diff 4 Months M05.9 - Rheumatoid arthritis with rheumatoid factor, unspecified Erythrocyte Sedimentation Rate 4 Months M05.9 - Rheumatoid arthritis with rheumatoid factor, unspecified Hepatitis A,B,C Profile 4 Months M05.9 - Rheumatoid arthritis with rheumatoid factor, unspecified T Spot TB 4 Months M05.9 - Rheumatoid arthritis with rheumatoid factor, un specified Comprehensive Met. Panel 4 Months M05.9 - Rheumatoid arthritis with rheumatoid factor, unspecified C Reactive Protein 4 Months M05.9 - Rheumatoid arthritis with rheumatoid factor, unspecified Medications: Refilled alendronate Take 1 tab once weekly, 1st thing in the morning, on an empty stomach, with a large glass of water (at least 6 oz) and stay upright for 30 minutes 70 mg PO QWEEK 12 tabs 1RF M81.0 - Age-related osteoporosis without current pathological fracture tramadol 100 mg (2 x 50 mg) PO BID PRN 120 tabs 2RF pain M17.12 - Unilateral primary osteoarthritis, left knee Xeljanz XR (tofacitinib) 11 mg PO DAILY 30 tabs 4RF NS M05.9 - Rheumatoid arthritis with rheumatoid factor, unspecified Discontinued diclofenac sodium 1% apply to single elbow, wrist or hand; for hand includes palm/fingers/back of hand Discontinued Reason: Patient no longer taking 2 grams topical BID 100 grams 0RF Coding Level of Care Code Est Pt Level 4 (01982) Complex EM visit Add On G2211 Diagnoses Seropositive rheumatoid arthritis M05.9 Age-related osteoporosis without current pathological fracture M81.0 Presence of current pathological fracture: without current pathological fracture Generalized osteoarthritis of multiple sites 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
--- OUTSIDE RECORDS SUMMARY | 2024-07-22 18:13 | XMS_ITS | Continuity of Care Document ---
Author Organization [facility] Address [address] [place] 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 Name Role Phone David Chris MD Primary Care Phys[id number] Date[facility]18/24 - 07/18/24 [facility] [address] [place] [address] Attending Physician: Sonal Beth Admitting Physician: AdmtrSonal Referring Physician: Admtr, [id number] Encounter Type: Triage Allergies, Adverse Reactions, Alerts [...] tetanus-diphtheria toxoids (Td) 04/06/05 Given 1Result Comment: [id number] given w/out incident 2Result Comment: [id number] given w/out incident 3[facility] 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 Refills 0, Maintenance, Pain , Mild, 10/05/23 11:50:00 AM EDT, Route to Pharmacy Electronically, [facility], Partial fill upon patient [...] 3 Refills, Maintenance, 05/15/24 9:51:00 AMEST, Tablet, [facility] #[id number], Partial fill upon patient request if the [...] 10:06:00 AM EST, Route to Pharmacy Electronically, [facility] #[id number], 146, cm, 05/15/24 10:04:00 EST, Height, 62.5, kg, 03/05/24 23:11:00 EDT, Dry Weight Start Date: 07/03/24 Status: Ordered Quantity: 90.0 Unit: tablet Repeat number: 1 lidocaine 5% topical film 1 patch, Topically, Daily, remove patches after 12 hours, # 30 patch, 0 Refills, Maintenance, 10/05/23 11:50:00 AM EDT, Patch, [facility], Partial fill upon patient request [...] 2:44:00 PM EST, Route to Pharmacy Electronically, [facility] #[id number], 146, cm, 05/15/24 10:04:00 EST, Height, 62.5, kg, 03/05/24 23:11:00 EDT, Dry Weight Start Date: 06/23/24 Status: Ordered Quantity: 90.0 Unit: tablet Repeat number: 1 omeprazole 20 mg oral enteric coated capsule 1 capsule, By Mouth, Daily, # 90 capsule, 3 Refills, Maintenance, 05/15/24 10:01:00 AM EST, [facility] #[id number], 146, cm, 05/15/24 9:37:00 EST, Height, 62.5, kg, 03/05/24 23:11:00 EDT, Dry Weight Start Date: 05/15/24 Stop Date: 05/10/25 Status: Ordered Quantity: 90.0 Unit: capsule Repeat number: 4 Paxlovid 150 mg-100 mg oral tablet See Instructions, take 3 tablets as labelled twice a day for x 5 days, # 30 tablet, 0 Refills, Maintenance, 07/03/24 1:04:00 PM EST, [facility] #[id number], GFR 63 05/15/24, take 3 tablets as labelled twice a day for x 5 days, 146, cm, 05/15/24 10:04:00 EST, Height, 62.5, kg, 03/05/24 23:11:00 EDT, Dry Weight Start Date: 07/03/24 Status: Ordered Quantity: 30.0 Unit: tablet Repeat number: 1 pravastatin 40 mg oral tablet 1 tablet, By Mouth, Daily, # 90 tablet, 1 Refills, Maintenance, 05/30/24 2:34:00 PM EST, [facility] #[id number], 146, cm, 05/15/24 10:04:00 EST, Height, 62.5, [...] 9:53:00 AM EST, Route to Pharmacy Electronically, [facility] #[id number], Partial fill upon patient request if the [...] Maintenance, 05/15/24 9:53:00 AM EST, ER Capsule, [facility] #[id number], Partial fill upon patient request if the [...] Refills, Maintenance, 10/05/23 11:50:00 AM EDT, Aerosol, [facility], Partial fill upon patient [...] Refills, Maintenance, 05/04/23 8:11:00 AM EST, Tablet, [facility] #[id number], Partial fill upon patient request if the [...] Team Personnel Name: Lester Vargas RN Position: [facility] RN Member Role: Primary Care Nurse Name: Hardik Chairez RN Position: [facility] RN Member Role: Primary Care Nurse Name: David Chris MD Position: [facility] Physician - Primary Care Member Role: PCP Address: [address] [place] [address] Adult & Pediatric Medicine [address] Telecom: Name: Joss Zuñiga Position: S Outreach Member Role: Lifetime Consulting Physician Name: Jb Shields RN Position: [facility] RN Member Role: Primary Care Nurse Care Team Related Persons Name: SORAIDA CORMIER Name: VERONICA TIJERINA Insurance Providers Guarantor name: ANTHONY TIJERINA Health Plan Information #: 1 Payer: [employer] Member Number: NA Policy Number: NA Group Number: NA
--- OUTSIDE RECORDS SUMMARY | 2024-07-22 18:13 | XMS_ITS | Continuity of Care Document ---
Author Organization [facility] Address [address] [place] [id number] [facility] Name Relationship Address Phone VERONICA TIJERINA child Unknown Unavailable SORAIDA CORMIER child Unknown Unavaila ble TIJERINA ANTHONY Personal Relationship Unknown Un available LILLIANA ANTHONY Personal Relationship Unknown Un available LILLIANA ANTHONY Personal Relationship Unknown Un available ANTHONY TIJERINA Personal Relationship Unknown Un available Care Team Providers Care Building Inspector Name Role Phone David Chris MD Primary Care Physician Encounter [facility] [id number] Date(s): 05/20/24 - 07/18/24 [facility] [address] [place] [address] Attending Physician: Kyler Klein MD Referring Physician: David Chris MD Encounter Type: Pre Office Visit Allergies, Adverse Reactions, Alerts Substance [...] tetanus-diphtheria toxoids (Td) 04/06/05 Given 1Result Comment: [id number] given w/out incident 2Result Comment: [id number] given w/out incident 3Admin Note: [facility] 4Admin Note: done at booking officer 5Result Comment: [06/07/2015] given w/out incident 6Admin Note: sanofi Medications acetaminophen 325 mg oral tablet 650 mg, By Mouth, Every 4 hours, PRN, Temperature Greater than 100.5 not to exceed 4000 mg/day, # 50 tablet, Refills 0, Tot. Refills 0, Maintenance, Pain , Mild, 10/05/23 11:50:00 AM EDT, Route to Pharmacy Electronically, [facility], Partial fill upon patient [...] 3 Refills, Maintenance, 05/15/24 9:51:00 AMEST, Tablet, [facility] #[id number], Partial fill upon patient request if the [...] 10:06:00 AM EST, Route to Pharmacy Electronically, [facility] #[id number], 146, cm, 05/15/24 10:04:00 EST, Height, 62.5, kg, 03/05/24 23:11:00 EDT, Dry Weight Start Date: 07/03/24 Status: Ordered Quantity: 90.0 Unit: tablet Repeat number: 1 lidocaine 5% topical film 1 patch, Topically, Daily, remove patches after 12 hours, # 30 patch, 0 Refills, Maintenance, 10/05/23 11:50:00 AM EDT, Patch, [facility], Partial fill upon patient request [...] 2:44:00 PM EST, Route to Pharmacy Electronically, [facility] #[id number], 146, cm, 05/15/24 10:04:00 EST, Height, 62.5, kg, 03/05/24 23:11:00 EDT, Dry Weight Start Date: 06/23/24 Status: Ordered Quantity: 90.0 Unit: tablet Repeat number: 1 omeprazole 20 mg oral enteric coated capsule 1 capsule, By Mouth, Daily, # 90 capsule, 3 Refills, Maintenance, 05/15/24 10:01:00 AM EST, [facility] #[id number], 146, cm, 05/15/24 9:37:00 EST, Height, 62.5, kg, 03/05/24 23:11:00 EDT, Dry Weight Start Date: 05/15/24 Stop Date: 05/10/25 Status: Ordered Quantity: 90.0 Unit: capsule Repeat number: 4 Paxlovid 150 mg-100 mg oral tablet See Instructions, take 3 tablets as labelled twice a day for x 5 days, # 30 tablet, 0 Refills, Maintenance, 07/03/24 1:04:00 PM EST, [facility] #[id number], GFR 63 05/15/24, take 3 tablets as labelled twice a day for x 5 days, 146, cm, 05/15/24 10:04:00 EST, Height, 62.5, kg, 03/05/24 23:11:00 EDT, Dry Weight Start Date: 07/03/24 Status: Ordered Quantity: 30.0 Unit: tablet Repeat number: 1 pravastatin 40 mg oral tablet 1 tablet, By Mouth, Daily, # 90 tablet, 1 Refills, Maintenance, 05/30/24 2:34:00 PM EST, [facility] #[id number], 146, cm, 05/15/24 10:04:00 EST, Height, 62.5, [...] 9:53:00 AM EST, Route to Pharmacy Electronically, [facility] #[id number], Partial fill upon patient request if the [...] Maintenance, 05/15/24 9:53:00 AM EST, ER Capsule, [facility] #[id number], Partial fill upon patient request if the [...] Refills, Maintenance, 10/05/23 11:50:00 AM EDT, Aerosol, [facility], Partial fill upon patient request [...] Refills, Maintenance, 05/04/23 8:11:00 AM EST, Tablet, [facility] #[id number], Partial fill upon patient request if the [...] Team Personnel Name: Lester Vargas RN Position: [facility] RN Member Role: Primary Care Nurse Name: Hardik Chairez RN Position: [facility] RN Member Role: Primary Care Nurse Name: David Chris MD Position: [facility] Physician - Primary Care Member Role: PCP Address: [address] [place] [address] Adult & Pediatric Medicine [address] Telecom: Name: Joss Zuñiga Position: [facility] Outreach Member Role: [employer] Consult[employer] Physician Name: Jb Shields RN Position: [facility] RN Member Role: Primary Care Nurse Care Team Related Persons Name: SORAIDA CORMIER Name: VERONICA TIJERINA Insurance Providers Guarantor name: ANTHONY TIJERINA Health Plan Information #: 1 Payer: [employer] Member Number: [id number] Policy Number: NA Group Number: 104 Health Plan Information #: 3 Payer: [employer] Member Number: [id number] Policy Number: NA Group Number: 104 Health Plan Information #: 2 Payer: MEDICARE PART B OUTPT Member Number: [id number] Policy Number: NA Group Number: NA
== END 2024-07-22 16:01 | disposition home or self-care (01) ==
LOC: HO.RHE 15:18
PROVIDERS: PCP Internal Medicine; Visit Provider Student in an Organized Health Care Education/Training Program
DX: M05.79 Rheumatoid arthritis with rheumatoid factor of multiple sites without organ or systems involvement (principal); M81.0 Age-related osteoporosis without current pathological fracture; M15.9 Polyosteoarthritis, unspecified; Z79.622 Long term (current) use of Janus kinase inhibitor; Z79.83 Long term (current) use of bisphosphonates
CPT/HCPCS: 99214

== ENCOUNTER → 2024-07-22 15:18 | Outpatient (BNVA) | payer BC, SELFPAY | PROVIDERS: PCP Internal Medicine; Visit Provider Student in an Organized Health Care Education/Training Program ==

== ENCOUNTER 2024-11-18 11:29 | Outpatient (AMB) | payer BC, SELFPAY ==
--- NOTE | 2024-11-18 11:43 | MHC.OFFVIS ---
Vital Signs 11/18/24 11:47 Height 4 ft 11 in Weight 136 lb 7.458 oz BMI 27.6 BP 162/94 H Blood Pressure Location Lt brachial Position Sitting Pulse 105 H Pulse Source Pulse Oximeter Pulse Oximetry (%) 97 Oxygen Delivery Method Room Air Intake Visit Reasons: RA Intake Note: Patient presents for RA follow up. Allergies codeine Allergy (Unknown, Verified 11/18/24 11:47) Rash latex (LATEX) Allergy (Unknown, Verified 11/18/24 11:47) ANGIOEDEMA morphine Allergy (Unknown, Verified 11/18/24 11:47) Vomiting penicillin V Allergy (Unknown, Verified 11/18/24 11:47) Unknown Medication List - Last Reconciled 11/18/24 by Charlotte Stafford MD albuterol sulfate 90 mcg/actuation 2 puffs inhalation Q4-6H PRN 30 days alendronate 70 mg PO QWEEK ascorbate calcium (vitamin C) 500 mg PO DAILY cholecalciferol (vitamin D3) 50 mcg PO DAILY doxycycline monohydrate 100 mg PO BID ferrous sulfate (Feosol) 325 mg PO DAILY fluticasone furoate-vilanterol 100-25 mcg/dose (Breo Ellipta) 1 inh inhalation DAILY 30 days furosemide 20 mg PO DAILY lisinopril 5 mg PO DAILY lorazepam 0.5 mg PO BID PRN omeprazole 20 mg PO DAILY pravastatin 40 mg PO DAILY tramadol 100 mg (2 x 50 mg) PO BID PRN venlafaxine ER 75 mg PO DAILY Xeljanz XR (tofacitinib) 11 mg PO DAILY NS HPI Comments Details: Patient is a 69-year-old female with hypertension, hyperlipidemia, COPD, iron deficiency anemia, gout (diet managed), polyarticular osteoarthritis, osteoporosis and seropositive rheumatoid arthritis c/b tendon rupture and repair x 2 on the right hand here today for follow up Interval History: Patient last seen 07/22/24 with me - Doing well on Xeljanz - Had a fall but no fractures Today - doing well - complaining of pain to left medial wrist - Also complaining of back pain - No further falls Rheumatologic History: Seropositive RA ++RF+++CCP dx 2002 MTX-dates unknown Enbrel 08/2015-07/2016 Arava 11/2016- 09/2018 Xeljanz 09/2018- present Osteoporosis on alendronate since December 2020, repeat DEXA 2023 with improvement. Current Rheumatology Medication(s): Xeljanz 11 mg daily Alendronate 70 mg weekly [facility] Medical History Dysphagia Trochanteric bursitis, right hip Generalized osteoarthritis of multiple sites Long-term use of immunosuppressant medication Dyspnea on exertion Seropositive rheumatoid arthritis Cough COPD (chronic obstructive pulmonary disease) Surgical History History of hand surgery History of bunionectomy History of appendectomy Family History Mother HTN (hypertension) Father CVD (cardiovascular disease) Maternal Grandmother Cervical cancer Social History Alcohol intake: current Alcohol intake frequency: holidays/special occasions only Patient Tobacco Use Status: Former Tobacco user Tobacco use type: Cigarette Cigarettes Per Day: 10 Years Smoked: 50 quit 2years ago e-Cigarette/Vaping Use: Never Used Current occupational status: retired Current occupation: left handed Review of Systems Const Details: Review of Systems Constitutional: Denies fever, chills, weight loss ENT: Denies vision changes, eye pain or eye redness, dental caries, dry mouth GI: Denies nausea, vomiting, diarrhea, abdominal pain, change in BM Pulm: Denies SOB, LOPEZ, hemoptysis, wheezing Cards: Denies chest pain, palpitations Skin: Denies Raynaud's, rash, nail changes, photosensitivity, 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 Well appearing and in no apparent painful distress HEENT Conjunctiva and sclera clear. ?Pupils equal round and reactive to light. ?No lymphadenopathy. ? CHEST/RESPIRATORY SYSTEM Normal respiratory effort and able to speak in complete sentences. ?Clear to auscultation bilaterally. ?No crackles, rales, rhonchi, wheezes heard. CARDIAC SYSTEM Regular rate and rhythm. ?S1 and S2 heard no murmurs. ?Radial pulses intact bilaterally MSK Hands: ?Able to make a fist. has a step deformity in the bone of the 3rd digit on the dorum of the right hand. Mild ulnar deviation bilaterally. Wrists: ?Fixed right wrist 2/2 previous surgeries. Decreased ROM to the left wrist. Swelling noted over the medial aspect of the wrist with TTP. Elbows: Full range of motion without pain. No tenderness, weakness, swelling, increased warmth or erythema. Shoulders: Decreased ROM bilaterally. No tenderness, weakness, swelling, increased warmth or erythema. Knees: ?Full range of motion. ?No tenderness, swelling, increased warmth or erythema.?No effusion or crepitations Ankles: Full range of motion. ?No tenderness, swelling, increased warmth or erythema. Nodule to the right achilles tendon? Feet: ?Negative squeeze test. ?No tenderness to palpation or swelling of the MTPs. Tender points:?No tenderness to palpation of the bilateral trapezius, supraspinatus, greater trochanters, anterior costochondral junctions, bilateral gluteal areas, bilateral suboccipital muscle insertions SKIN Skin intact without rashes. Office Procedures AMB Joint Injection/Aspiration Joint Injection/Aspiration Details: Procedure was explained to the patient and informed consent was obtained. ? Risks associated with the procedure were discussed with the patient including but not limited to bleeding, infection, drug reactions and reactions to the topical anesthetic. Patient made aware of signs to look out for infectious complications. The area of interest was identified and confirmed with patient. ?This was subsequently cleaned with chlorhexidine x3. ? The area was then anesthetized using ethyl chloride spray. 20 mg Kenalog with 0.5 cc 1% lidocaine was injected without issue. ?Minimal to no bleeding. ?Patient tolerated procedure. Primary Site: other (left wrist intercarpal joint) Prep: site was prepped using aseptic technique and ethochloride spray was applied Injected: 20 mg of, Kenalog, with 0.5 mL of and 1% plain lidocaine Approach Used: other Procedure: The patient tolerated the procedure well Coding - Small Joint Procedure code (CPT) selection complete Office Meds lidocaine (PF) 10 mg/mL (1 %) injection solution Performing Provider: Charlotte Stafford MD Performing Location: [facility] Administered by: Charlotte Stafford MD on 11/18/24 12:17 Dose Route Admin Location Dispensed Lot Number Expiration Date [facility] [place] [facility] Combiner Operator 0.5 mL Infiltration left intercarpal joint 2 mL [id number] 09/04/26 31667-144-64 [employer] Total Dispensed Waste 2 mL 75 % Kenalog 40 mg/mL suspension for injection Performing Provider: Charlotte Stafford MD Performing Location: [facility] Administered by: Charlotte Stafford MD on 11/18/24 12:17 Dose Route Admin Location Dispensed Lot Number Expiration Date [facility] [place] [facility] Combiner Operator 20 mg intra-articular left intercarpal joint 1 mL [id number] 11/04/25 [address]-1 [employer] Total Dispensed Waste 1 mL 50 % Results Reviewed Results Reviewed: Laboratory Tests 10/16/23 07/17/24 10:53 09:34 WBC 6.7 RBC 4.77 Hgb 11.6 L Hct 37.1 Plt Count 216 D ESR 59 H 10 Sodium 133 L Potassium 5.3 H D Chloride 97 Carbon Dioxide 31 H BUN 17 H Creatinine 0.79 AST 34 H C-Reactive Protein 3.86 H 0.98 H Total Protein 7.0 Albumin 3.9 Infectious serologies 07/17/24 09:34 Hepatitis A IgM Ab Nonreactive Hep Bs Antigen Negative Hep Bs Antibody NONREACTIVE Hep B Core Total Ab Nonreactive Hepatitis C Ab (EIA) Nonreactive TB Test (T-Spot) Com Negative Assessment & Plan Assessment & Plan (1) Seropositive rheumatoid arthritis: Comment: ++RF+++CCP dx 2002 MTX-dates unknown Enbrel 08/2015-07/2016 Arava 11/2016- 09/2018 Xeljanz 09/2018- present Code(s): M05.9 - Rheumatoid arthritis with rheumatoid factor, unspecified Category: Medical Plan: #Seropositive RA Patient is a 69-year-old female with seropositive rheumatoid arthritis here today for follow up. Having a mild flare of her RA with tenderness and swelling involving the medial intercarpal joints. S/p steroid injection Plan - s/p steroid injection to intercarpal joint - Xeljanz 11mg daily - Labs today: CBC, CMP, ESR, CRP, Hepatitis panel and T spot - RTC 4 months - Labs before visit: CBC, CMP, ESR, CRP (2) Age related osteoporosis: Comment: DEXA 01/2021: AP spine -0.6, Left femur neck -2.2, Left femur total -1.9. FRAX 26.4/5.3 DEXA 10/2023: AP spine -0.2, Left femur neck -1.9, Left femur total -0.4 on alendronate since December 2020, repeat DEXA 2023 with improvement. Code(s): M81.0 - Age-related osteoporosis without current pathological fracture Category: Medical Qualifiers: Presence of current pathological fracture: without current pathological fracture Qualified Code(s): M81.0 - Age-related osteoporosis without current pathological fracture Plan: #Osteoporosis Patient with osteoporosis on alendronate with improvement in DEXA done 10/2023. Had a fall last fall with subsequent nondisplaced fracture to the right hand. Despite the improved bone density she did sustain a fracture after fall. We will continue her alendronate at this time given that there is improvement in her DEXA and after the fall she did not sustain a fracture to her spine or her femur. We will continue the alendronate until 2025 at which point we will offer her a drug holiday. Plan - Alendronate 70mg weekly - f/u Vitamin D - rpt DEXA 2025 and if stable can offer drug holiday (3) Generalized osteoarthritis of multiple sites: Code(s): M15.9 - Polyosteoarthritis, unspecified Category: Medical Plan: #Polyarticular OA Patient with polyarticular osteoarthritis currently stable. She takes tramadol for breakthrough pains and we will refill this today. 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) use of Janus kinase inhibitor Plan: #Long-term Use of PEDRO inhibitor Xeljanz Discussed with patient the benefits and risks of PEDRO inhibitors for the management of the rheumatic condition Benefits include reduce pain, maintenance of remission and reduction of flares Risks include thromboembolic events, skin cancer and nonmelanoma skin cancers, other forms of cancer, cardiovascular alcohol and mortality Advise patient that they are to hold the medication and for up to 1 week after a febrile illness or an open skin wound (5) Encounter for ongoing osteoporosis therapy, bisphosphonates: Code(s): M81.0 - Age-related osteoporosis without current pathological fracture; Z79.83 - senior living (current) use of bisphosphonates Plan: #Long-term Use of Bisphosphonates Risks and benefits of bisphosphonates in the management of osteoporosis Benefits include improved bone density, decreased fracture risk Risks include atypical femoral fractures, GI upset, esophageal strictures Contraindicated in patients with a creatinine clearance < 30 to 35 ml/min Keep vitamin-D at least 35 ng/mL Plan I spent 35 minutes reviewing the record and labs, taking a history, examining the patient, discussing the treatment plan, ordering diagnostic work up and documenting in the medical record Orders: Orders AMB Joint Injection/Aspiration Today M05.9 - Rheumatoid arthritis with rheumatoid factor, unspecified Comprehensive Met. Panel 4 Months M05.9 - Rheumatoid arthritis with rheumatoid factor, unspecified C Reactive Protein 4 Months M05.9 - Rheumatoid arthritis with rheumatoid factor, unspecified Erythrocyte Sedimentation Rate 4 Months M05.9 - Rheumatoid arthritis with rheumatoid factor, unspecified Complete Blood Count Auto Diff 4 Months M05.9 - Rheumatoid arthritis with rheumatoid factor, unspecified Coding Level of Care Code Est Pt Level 4 (43755) Complex EM visit Add On G2211 Diagnoses Seropositive rheumatoid arthritis M05.9 Age-related osteoporosis without current pathological fracture M81.0 Presence of current pathological fracture: without current pathological fracture Generalized osteoarthritis of multiple sites M15.9 garage helper (current) use of janus kinase 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 CPT Codes Coding - - Small joint: 44482 - Small Joint ([id number])
[2024-11-18 11:47] VITALS: BP 162/94; PULSE 105; O2SAT 97; BMI 27.6
== END 2024-11-18 12:08 | disposition home or self-care (01) ==
PROVIDERS: PCP Internal Medicine; Visit Provider Student in an Organized Health Care Education/Training Program
DX: M05.79 Rheumatoid arthritis with rheumatoid factor of multiple sites without organ or systems involvement (principal); M81.0 Age-related osteoporosis without current pathological fracture; M15.9 Polyosteoarthritis, unspecified; M25.532 Pain in left wrist; Z79.622 Long term (current) use of Janus kinase inhibitor; Z79.83 Long term (current) use of bisphosphonates
CPT/HCPCS: 20600; 99214

== ENCOUNTER → 2024-11-18 11:29 | Outpatient (BNVA) | payer BC, SELFPAY | PROVIDERS: PCP Internal Medicine; Visit Provider Student in an Organized Health Care Education/Training Program | DX: M05.742 Rheumatoid arthritis with rheumatoid factor of left hand without organ or systems involvement (principal) | CPT/HCPCS: 20600; J2003; J3300 ==

== ENCOUNTER 2024-11-18 12:12 | Outpatient (REF) | payer BC, SELFPAY ==
[2024-11-18 13:02] LABS: MANUAL DIFF FLAG NO
[2024-11-18 13:07] LABS: Hematocrit 39.9 % (37.0-47.0); Hemoglobin 13.4 g/dl (12.0-16.0); Imm Gran Abs Auto 0.01 X10*3/uL (0.00-0.03); Imm Gran Pct Auto 0.2 % (0.0-0.4); Lymphocytes Absolute Auto 1.8 X10*3/uL (1.2-4.9); Mean Corpuscular HGB Conc 33.6 g/dl (31.0-35.0); Mean Corpuscular Hemoglobin 27.5 pg (27.0-33.0); Mean Corpuscular Volume 81.8 fL (80.0-98.0); NRBC Abs Auto 0.000 X10*3/uL (0.0-0.012); NRBC Pct Auto 0.0 /100WBC (0.0-0.2); Platelet Count 278 X10*3/uL (160-400); Red Blood Count 4.88 X10*6/uL (4.20-5.50); White Blood Count 6.4 X10*3/uL (4.8-10.8)
[2024-11-18 13:19] LABS: Alanine Aminotransferase 28 U/L (0-31); Albumin Level 4.5 g/dL (3.5-5.0); Alkaline Phosphatase 43 U/L (39-117); Anion Gap 13 (12-20); Aspartate Amino Transferase 37 U/L (5-31); Blood Urea Nitrogen 22 mg/dL (9-16); Calcium 9.2 mg/dL (8.4-10.2); Carbon Dioxide 27 mmol/L (22-29); Chloride 98 mmol/L (96-108); Estimated Glomerular Filt Rate 59; Potassium 4.9 mmol/L (3.3-5.1); Sodium 133 mmol/L (135-145); Total Protein 7.2 g/dL (6.5-8.0)
[2024-11-18 13:43] LABS: HBS Num1 0.00 mIU/mL (0-7.99); HBc Num1 0.10 S/CO (0.00-0.79); HBsAGNum1 0.30 S/CO (0.00-0.99); Hepatitis A Antibody IgM 0.22 Index (0-0.79); Hepatitis B Surface Antigen Negative (Negative); ~HepC Num1 0.15 S/CO (0.00-0.79); ~Hepatitis A Antibody IgM Nonreactive (Nonreactive); ~Hepatitis B Surface Antibody NONREACTIVE (Nonreactive); ~Hepatitis C Antibody Nonreactive (Nonreactive)
[2024-11-21 05:38] LABS: TS Negative Control Passed; TS Panel A 0; TS Panel B 4; TS Positive Control Passed; TSpotTB Negative (Negative)
== END 2024-11-18 12:13 | disposition home or self-care (01) ==
LOC: HO.10HDL 12:12
PROVIDERS: Visit Provider Student in an Organized Health Care Education/Training Program
DX: M05.9 Rheumatoid arthritis with rheumatoid factor, unspecified (principal)
CPT/HCPCS: 36415; 80053; 85025; 85652; 86140; 86481; 86704; 86706; 86709; 86803; 87340

== ENCOUNTER 2025-03-12 13:05 | Outpatient (REF) | payer BC, SELFPAY ==
--- OUTSIDE RECORDS SUMMARY | 2025-03-09 23:59 | XMS_ITS | Continuity of Care Document ---
Author Organization [facility] Address [address] [place] [address]- Care Team Providers Care Paving Foreman Name Role Phone David Chris MD Primary Care Physician Encounter [facility] [id number] Date(s): 03/02/25 - 03/09/25 [facility] [address] [place], [place] [address] Attending Physician: Virgil Ashton MD Encounter Type: Office Visit Allergies, Adverse Reactions, Alerts Substance Criticality Severity Reaction Reaction Severity Status codeine Hives O/E - respiratory distress Active penicillin Rash Hives Active morphine gi upset Active Latex O/E - respiratory distress Active Pen-VK Active Xeljanz XR Shortness of breath Active Functional Status Functional Status Assessment Assessment Assessment Component Result Effecti ve Date Disability status [CUBS] I'm Thriving - no identified disability 03/02/25 Do you need any iqra tional assistance or accommodations during your visit Choose Not to Answer 03/02/25 Do you have serious difficulty walking or climbing stairs Choose Not to Answer 03/02/25 Difficulty Reading O r Writing Choose Not to Answer 03/02/25 Are you blind, or do you have serious difficulty seeing, even when wearing glasses Choose Not to Answer 03/02/25 Difficulty communica ting in usual language Choose Not to Answer 03/02/25 Because of a physica l, mental, or emotional condition, do you have serious difficulty concentrating, remembering, or making decisions Choose Not to Answer 10/27/25 Do you have difficul ty dressing or bathing Choose Not to Answer 03/02/25 Are you deaf, or do you have serious difficulty hearing Choose Not to Answer 03/02/25 Because of a physica l, mental, or emotional condition, do you have difficulty doing errands alone such as visiting a physician's office or shopping Choose Not to Answer 03/02/25 Immunizations Given and Recorded Vaccine Date Status [...] tetanus-diphtheria toxoids (Td) 04/06/05 Given 1Result Comment: [id number] given w/out incident 2Result Comment: [id number] given w/out incident 3Admin Note: [facility] 4Admin Note: done at [facility] 5Result Comment: [06/07/2015] given w/out incident 6Admin Note: [facility] Medications acetaminophen 325 mg oral tablet 650 mg, By Mouth, Every 4 hours, PRN, Temperature Greater than 100.5 not to exceed 4000 mg/day, # 50 tablet, Refills 0, Tot. Refills 0, Maintenance, Pain , Mild, 10/05/23 11:50:00 AM EDT, Route to Pharmacy Electronically, [facility], Partial fill upon patient request if the prescription is for a schedule II opioid drug., 151, cm, 10/05/23 11:15:00 EDT, Height, 68, kg, 10/01/23 3:21:00 EDT, Dry Weight Start Date: 10/05/23 Status: Ordered Medication Dispense Status: Completed Quantity: 50.0 Unit: tablet Total Allowed Fills: 1 Fills Dispensed: 0 alendronate 70 mg oral tablet 1 tablet = 70 mg, By Mouth, Every week, # 4 tablet, 0 Refills, Maintenance, 10/26/23 11:21:00 AM EDT, Tablet, Partial fill upon patient request if the prescription is for a schedule II opioid drug. Start Date: 10/26/23 Status: Ordered Medication Dispense Status: Completed Quantity: 4.0 Unit: tablet Total Allowed Fills: 1 Fills Dispensed: 0 Breo Ellipta 100 mcg-25 mcg/inh inhalation powder 1 puffs, Inhalation, Daily, # 30 each, 0 Refills, Maintenance, 03/13/22 4:21:00 PM EST, Powder, Partial fill upon patient request if the prescription is for a schedule II opioid drug. Start Date: 03/13/22 Status: Ordered Medication Dispense Status: Completed Quantity: 30.0 Unit: each Total Allowed Fills: 1 Fills Dispensed: 0 busPIRone 5 mg oral tablet 5 mg, 1, tablet, By Mouth, 2 times a day, # 60 tablet, Refills 3, Tot. Refills 3, Maintenance, 11/24/24 11:52:00 AM EDT, Route to Pharmacy Electronically, [id number], Partial fill upon patient request if the prescription is for a schedule II opioid drug., 146, cm, 11/24/24 11:38:00 EDT, Height, 66.4, kg, 07/28/24 11:02:00 EDT, Dry Weight Start Date: 11/24/24 Stop Date: 03/24/25 Status: Ordered Medication Dispense Status: Completed Quantity: 60.0 Unit: tablet Total Allowed Fills: 4 Fills Dispensed: 0 cane cane, See Instructions, # 1 each, Refills 0, Tot. Refills 0, Maintenance, use for mobility. Dx: M06.91, Z91.61 lifetime use. Ht: 4'11 , Wt: 149lbs, 05/03/23 3:45:00 PM EST, Supply Start Date: 05/03/23 Status: Ordered Medication Dispense Status: Completed Quantity: 1.0 Unit: each Total Allowed Fills: 1 Fills Dispensed: 0 ferrous sulfate 325 mg oral enteric coated tablet 325 mg, 1, tablet, By Mouth, Daily, Pt started taking per ED doctor 02/22/25, # 30 tablet, Refills 0, Maintenance, 02/22/25 9:33:00 AM EDT, Partial fill upon patient request if the prescription is for a schedule II opioid drug. Start Date: 02/22/25 Status: Ordered Medication Dispense Status: Completed Quantity: 30.0 Unit: tablet Total Allowed Fills: 1 Fills Dispensed: 0 furosemide 20 mg oral tablet 1, tablet, By Mouth, Daily, # 90 tablet, Refills 2, Tot. Refills 2, Maintenance, 01/30/25 12:59:00 PM EDT, Route to Pharmacy Electronically, [facility] #[id number], 146, cm, 11/24/24 11:56:00 EDT, Height, 66.4, kg, 07/28/24 11:02:00 EDT, Dry Weight Start Date: 01/30/25 Stop Date: 10/27/25 Status: Ordered Medication Dispense Status: Completed Quantity: 90.0 Unit: tablet Total Allowed Fills: 3 Fills Dispensed: 0 lidocaine 5% topical film 1 patch, Topically, Daily, remove patches after 12 hours, # 30 patch, 0 Refills, Maintenance, 10/05/23 11:50:00 AM EDT, Patch, [facility], Partial fill upon patient request if the prescription is for a schedule II opioid drug., 1 patch Topically Daily,Instr:remove patches after 12 hours, 151, cm, 10/05/23 11:15:00 EDT, Height, 68, kg, 10/01/23 3:21:00 EDT, Dry Weight Start Date: 10/05/23 Status: Ordered Medication Dispense Status: Completed Quantity: 30.0 Unit: patch Total Allowed Fills: 1 Fills Dispensed: 0 lisinopril 5 mg oral tablet 1, tablet, By Mouth, Daily, # 90 tablet, Refills 3, Maintenance, 06/23/24 2:44:00 PM EST, Route to Pharmacy Electronically, [facility] #[id number], 146, cm, 05/15/24 10:04:00 EST, Height, 62.5, kg, 03/05/24 23:11:00 EDT, Dry Weight Start Date: 06/23/24 Status: Ordered Medication Dispense Status: Completed Quantity: 90.0 Unit: tablet Total Allowed Fills: 1 Fills Dispensed: 0 omeprazole 20 mg oral enteric coated capsule 1 capsule, By Mouth, Daily at bedtime, # 90 capsule, 3 Refills, Maintenance, 05/15/24 10:01:00 AM EST, [facility] #[id number], 146, cm, 05/15/24 9:37:00 EST, Height, 62.5, kg, 03/05/24 23:11:00 EDT, Dry Weight Start Date: 05/15/24 Stop Date: 05/10/25 Status: Ordered Medication Dispense Status: Completed Quantity: 90.0 Unit: capsule Total Allowed Fills: 4 Fills Dispensed: 0 pravastatin 40 mg oral tablet 1 tablet, By Mouth, Daily, # 90 tablet, 3 Refills, Maintenance, 11/24/24 11:57:00 AM EDT, replaces rosuvastatin, 146, cm, 11/24/24 11:56:00 EDT, Height, 66.4, kg, 07/28/24 11:02:00 EDT, Dry Weight Start Date: 11/24/24 Stop Date: 11/19/25 Status: Ordered Medication Dispense Status: Completed Quantity: 90.0 Unit: tablet Total Allowed Fills: 4 Fills Dispensed: 0 traMADol 50 mg oral tablet 2 tablet = 100 mg, By Mouth, Every 12 hours, PRN for pain, # 60 tablet, 0 Refills, Maintenance, 02/04/21 3:09:00 PM EDT, Tablet, Partial fill upon patient request if the prescription is for a scheduleII opioid drug. Start Date: 02/04/21 Status: Ordered Medication Dispense Status: Completed Quantity: 60.0 Unit: tablet Total Allowed Fills: 1 Fills Dispensed: 0 traZODone 50 mg oral tablet See Instructions, 1-2 tablet By Mouth Daily at bedtime 30 days, # 60 each, Refills 5, Tot. Refills 5, Maintenance, 07/28/24 11:11:00 AM EDT, Instructions Replace Required Details, Route to Pharmacy Electronically, [facility] #[id number], dose increase, 146, cm, 07/28/24 11:02:00 EDT, Height, 66.4, kg, 07/28/24 11:02:00 EDT, Dry Weight Start Date: 07/28/24 Status: Ordered Medication Dispense Status: Completed Quantity: 60.0 Unit: each Total Allowed Fills: 6 Fills Dispensed: 0 venlafaxine 150 mg oral capsule, extended release 1 capsule = 150 mg, By Mouth, Daily, # 90 capsule, 4 Refills, Maintenance, 05/15/24 9:53:00 AM EST, ER Capsule, [facility] #[id number], Partial fill upon patient request if the prescription is fora schedule II opioid drug., 146, cm, 05/15/24 9:37:00 EST, Height, 62.5, kg, 03/05/24 23:11:00 EDT,Dry Weight Start Date: 05/15/24 Stop Date: 08/08/25 Status: Ordered Medication Dispense Status: Completed Quantity: 90.0 Unit: capsule Total Allowed Fills: 5 Fills Dispensed: 0 Ventolin HFA 108 mcg/inh inhalation aerosol with adapter 2 puffs, Inhalation, 4 times a day, PRN for wheezing, # 6.7 Gm, 1 Refills, Maintenance, 10/05/23 11:50:00 AM EDT, Aerosol, [facility], Partial fill upon patient request if the prescription is for a schedule II opioid drug., 151, cm, 10/05/23 11:15:00 EDT, Height, 68, kg, 10/01/23 3:21:00 EDT, Dry Weight Start Date: 10/05/23 Stop Date: 12/04/23 Status: Ordered Medication Dispense Status: Completed Quantity: 6.7 Unit: g Total Allowed Fills: 2 Fills Dispensed: 0 Xeljanz XR 11 mg oral tablet, extended release 1 tablet = 11 mg, By Mouth, Daily, # 30 tablet, 0 Refills, Maintenance, 03/15/23 6:00:00 PM EST, ER Tablet, Partial fill upon patient request if the prescription is for a schedule II opioid drug. 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 Bilateral inguinal hernia Confirmed 02/17/25 Active Degenerative arthritis of cervical spine Confirmed Active CTS - Carpal tunnel syndrome Confirmed 2008 Active FH: premature coronary heart disease (dad, 50s) Confirmed Active Generalized anxiety disorder Confirmed Active Generalized osteoarthritis Confirmed Active History of COVID-19 1 Confirmed 05/15/23 Active Hypercholesterolemia Confirmed Active Hypertension Confirmed 05/30/13 Active Insomnia Confirmed Active Low back pain Confirmed Active Degenerative arthritis of lumbar spine Confirmed Active Obese class I Confirmed Active Osteopenia Confirmed 10/15/18 Active Panic attack Confirmed Active Paraesophageal hiatal hernia Confirmed 02/17/25 Active Rheumatoid arthritis Confirmed Active Rhinoplasty Confirmed 1980 Active Incidental lung nodule Confirmed Active Hernia, umbilical Confirmed 02/17/25 Active 1Problem added by Discern Expert Vital Signs Most recent to oldest [Reference Range]: 1 Height 146 cm (03/02/25 3:41 PM) Weight 64.3 kg (03/02/25 3:41 PM) Oxygen Saturation [94-100 %] 97 % (03/02/25 3:41 PM) Pulse Rate [55-90 bpm] 105 bpm *H* (03/02/25 3:41 PM) Body Mass Index [18.5-24.99 kg/m2] 30.17 kg/m2 *H* (03/02/25 3:41 PM) Blood Pressure [90-138/55-84 mm Hg] 120/ 68mm Hg (03/02/25 3:41 PM) Mode of Delivery (Oxygen) Room air (03/02/25 3:41 PM) Blood pressure sites Arm, left (03/02/25 3:41 PM) Dry Weight 64.3 kg (03/02/25 3:41 PM) Weight Obtained Via Standing scale (03/02/25 3:41 PM) Social History Social History Type Response Smoking Status Former smoker; Tobac co user in household: Yes entered on: 05/30/13 Sexual Orientation Self described orien tation: ; Straight or heterosexual Sex Sex Representation Female (finding) Note * Siobhan Menard: PERFORM Event Display: Patient Education/Instruction Authored Date: [id number] Ambulatory Adult Visit Summary [facility] [address] [place] [address] Name: ANTHONY TIJERINA : 1955?? Visit: 03/02/2025 15:16?? Ambulatory Visit Instructions ?? Your Care Team Primary Care Provider David Chris MD? This Visit Provider Virgil Ashton MD Your Diagnosis Subcutaneous hematoma Vitals Signs Pulse Rate:??105 bpm??High Height: 146 cm Systolic Blood Pressure: 120 mm Hg Weight: 64.3 kg Diastolic Blood Pressure: 68 mm Hg Body Mass Index:??30.17 kg/m2??High Oxygen Saturation: 97 % Body surface area: 1.61 What to do next Scheduled Follow-Up Appointments Sunday 8:40 AM EST ?? Type: Return With: David Chris MD Where: [facility] [address] [place] [id number]- Status: Pending Future Orders ALT - Routine, Once, 08/25/24 12:00:00 EDT, Future Order, [facility], Blood?? AST - Routine, Once, 08/25/24 12:00:00 EDT, Future Order, [facility], Blood?? Lipid Panel - Routine, Once, 08/25/24 12:00:00 EDT, Future Order, [facility], Blood?? Basic Metabolic Panel (BMP) - Routine, Once, 10/06/24 3:00:00 EDT, Future Order, [facility], Blood?? Urine Culture - Routine, Once, 01/06/25 7:26:00 EDT, [facility], Urine Clean Catch?? Complete Urinalysis (Urinalysis Complete) - Routine, Once, 01/06/25 7:27:00 EDT, [facility], Urine?? Medications The list below reflects the information in our records and provided by you today along with any changes made during this visit. Please continue your medications until treatment is completed or stopped by your provider. If this is different from the information you have or there are other questions,please contact the prescribing provider. What How Much When Instructions Unchanged Acetaminophen (acetaminophen 325 mg oral tablet) 650 Milligram Oral Every 4 hours as needed for Pain , Mild Special Instructions: Temperature Greater than 100.5
not to exceed 4000 mg/ day Ordering Physician: Do CORK INSULATION SETTER, Vi T ?? Unchanged Albuterol (Ventolin HFA 108 mcg/ inh inhalation aerosol with adapter) 2 puff(s) Inhalation 4 times a day as needed for for wheezing Duration: 30 Days Ordering Physician: CORK INSULATION SETTER, Ewa T Unchanged Alendronate (alendronate 70 mg oral tablet) 1 tab(s) Oral Every week Unchanged BusPIRone (busPIRone 5 mg oral tablet) 1 tab(s) Oral Twice a day Duration: 30 Days Ordering Physician: David Chris MD Unchanged Durable Medical Equipment (cane) See instructions Special Instructions: use for mobility. Dx: M06.91, Z91.61 lifetime use. Ht: 4'11 , Wt: 149lbs Ordering Physician: David Chris MD ?? Unchanged Ferrous Sulfate (ferrous sulfate 325 mg oral enteric coated tablet) 1 tab(s) Oral Daily Special Instructions: Pt started taking per ED doctor Unchanged fluticasone-vilanterol (Breo Ellipta 100 mcg-25 mcg/ inh inhalation powder) 1 puff(s) Inhalation Daily Unchanged Furosemide (furosemide 20 mg oral tablet) 1 tab(s) Oral Daily Duration: 90 Days Ordering Physician: David Chris MD Unchanged Lidocaine Topical (lidocaine 5% topical film) 1 patch Topically Daily Special Instructions: remove patches after 12 hours Ordering Physician: Ewa Foster NP T ?? Unchanged Lisinopril (lisinopril 5 mg oral tablet) 1 tab(s) Oral Daily Ordering Physician: David Chris MD Unchanged Omeprazole (omeprazole 20 mg oral enteric coated capsule) 1 capsule Oral Daily at Bedtime Duration: 90 Days Ordering Physician: David Chris MD Unchanged Pravastatin (pravastatin 40 mg oral tablet) 1 tab(s) Oral Daily Duration: 90 Days Ordering Physician: David Chris MD Unchanged tofacitinib (Xeljanz XR 11 mg oral tablet, extended release) 1 tab(s) Oral Daily Unchanged Tramadol (traMADol 50 mg oral tablet) 2 tab(s) Oral Every 12 hours as needed for for pain Unchanged Trazodone (traZODone 50 mg oral tablet) See instructions Special Instructions: 1-2 tablet By Mouth Daily at bedtime 30 days Ordering Physician: Boss MD, Rolando F ?? Unchanged Venlafaxine (venlafaxine 150 mg oral capsule, extended release) 1 capsule Oral Daily Duration: 90 Days Ordering Physician: David Chris MD Medications and Immunizations Administered Medications Given During Visit No medications given during this visit.?? Allergies (NKA means No Known Allergies) Latex??O/E - respiratory distress Pen-VK Xeljanz XR??Shortness of breath codeine??Hives, O/E - respiratory distress morphine??gi upset penicillin??Rash, Hives Common Emergency Awareness Tips IS IT A STROKE? Act FAST and Check for these signs: FACE Does the face look uneven? ARM Does one arm drift down? SPEECH Does their speech sound strange? TIME Call at any sign of stroke ?? Heart Attack Signs Chest discomfort: Most heart attacks involve discomfort in the center of the chest and lasts more than a few minutes, or goes away and comes back. It can feel like uncomfortable pressure, squeezing, fullness or pain. Discomfort in upper body: Symptoms can include pain or discomfort in one or both arms, back, neck, jaw or stomach. Shortness of breath: With or without discomfort. Other signs: Breaking out in a cold sweat, nausea, or lightheaded. Remember, MINUTES DO MATTER. If you experience any of these heart attack warning signs, call to get immediate medical attention! ?? Smoking can increase your chances of developing chronic health problems and can cause harmful effects to other family members in your house. If you smoke, you are strongly encouraged to quit. Please call [facility] at [phone] or [phone] ([phone]) or log in to [email or web address] for referrals to smoking cessation programs. ?? The National Suicide Prevention Hotline is available 27/11 if you or someone you know needs to find a reason to keep living. By calling 1-442-084-[facility] (3245) you'll be connected to a skilled, trained counselor at a crisis center in your area. [facility] [employer] Portal You can view and manage your care through the patient portal or by using a health care ayla of your choosing. [employer] is a website that allows you to securely view your medical information including your hospital discharge summary, office visit summaries, medications and follow-up visits. You can also request appointments, renew medications, and request access to your medical information using a health care ayla of your choosing, or just ask a question. You can enroll at [email or web address] or register during your next office visit. [facility], in keeping with [facility] guidance, no longer requires face masks for staff, patientsor visitors in most situations. Similiar to time spent indoors at other locations, there is the chance that you were exposed to repiratory viruses during your time with us (such as flu or COVID-19). If you develop symptoms concerning for a viral respiratory infection, please seek testing (and treatment if indicated) from your medical provider or home test kit. ?? Disclaimer: The information provided is of a general nature and is intended to be used in conjunction with the recommendations and advice of your health care practitioner. Every effort has been made to ensure that the information provided is accurate and complete at the time it is provided to you however, as your needs change, or, as new information becomes available, different or additional instructions may be required. ?? If you have questions, please consult with your primary care provider or pharmacist, as appropriate. This information is not intended to serve as substitution for assessment and evaluation by a qualified health care provider. If you do not have a primary care provider, you may find a [facility] provider by calling [facility] [employer] [facility] at [phone]. Patient Care team information Care Team Personnel Name: Lester Vargas RN Position: [facility] RN Member Role: Primary Care Nurse Name: Hardik Chairez RN Position: [facility] RN Member Role: Primary Care Nurse Name: David Chris MD Position: [facility] Physician - Primary Care Member Role: PCP Address: [address] [place] [address] [facility] [address] Telecom: Name: Joss Zuñiga Position: [facility] Outreach Member Role: [employer] Consulting Physician Name: Jb Shields RN Position: [facility] RN Member Role: Primary Care Nurse Care Team Related Persons Name: SORAIDA CORMIER Name: VERONICA TIJERINA Insurance Providers Guarantor name: ANTHONY TIJERINA Health Plan Information #: 1 Payer: [employer] [facility] Payer Identifier: NA Member Number: [id number] Group Number: [id number] Subscriber Identifier: [id number] Relationship to Subscriber: self Coverage Type: NA Coverage Verification Date: NA Telecom: NA Address: NA
--- OUTSIDE RECORDS SUMMARY | 2025-03-12 15:59 | XMS_ITS | Clinical Summary ---
Author Organization [facility] Address [address] [address] Phone Care Team Providers Care Data Support Specialist Name Role Phone Unavailable Primary Care Provider Unavailabl e Allergies Active Allergy Reactions Criticality Noted Date Comments Codeine Unknown 11/20/2005 Latex Unknown 11/20/2005 Penicillins Unknown 11/20/2005 Social History Tobacco Use Types Packs/Day Years Used Date Smoking Tobacco: Never Assessed Education Answer Date Recorded Are you interested in more education? Not on eliazar e 08/31/2022 Are you concerned about learning? Not on file 08/31/2022 No 08/31/2022 No 08/31/2022 Digital Access Answer Date Recorded No 10/02/2022 No 10/02/2022 No 10/02/2022 Reliable internet access at home? Not on file 10/02/2022 Device with a working camera? Not on file Comments Unknown Sex and Gender Information Value Date Recorded Sex Assigned at Not on file Legal Sex Female 8:01 PM EST Gender Identity Not on file Sexual Orientation Not on file Plan of Treatment Health Maintenance Due Date Last Done Comments Adult Td,Tdap Booster 1955 LIPID PANEL 1955 DEPRESSION SCREENING 1965 SMOKING Hx and SMOKELESS TOBACCO SCREENING 1966 HEPATITIS C SCREENING 1971 MAMMOGRAM 1993 COLOGUARD 1998 COLONOSCOPY 1998 COLORECTAL CANCER SCREENING 1998 FIT TEST 1998 FOBT 1998 SIGMOIDOSCOPY 1998 VIRTUAL COLONOSCOPY 1998 ZOSTER VACCINES (1 of 2) 2003 OSTEOPOROSIS SCREENING INITI AL (ONE-TIME) 2018 PNEUMOCOCCAL VACCINES (50+ years) (2 of 2 - PPSV23) 12/25/2019 12/24/2018 INFLUENZA VACCINE (#1) 2024 COVID-19 VACCINE (3 - 2024-2 6 season) 2025 08/01/2020, 07/11/2020 RSV VACCINE (1 - 1-dose 75+ series) 2028 HEPATITIS A VACCINES Aged Out No long er eligible based on patient's age to complete this topic HIB VACCINES Aged Out No longer eligi ble based on patient's age to complete this topic MENINGOCOCCAL VACCINES (ACWY) Aged Out No longer eligible based on patient's age to complete this topic MENINGOCOCCAL VACCINES (B) Aged Out N o longer eligible based on patient's age to complete this topic Medical Devices Not on file Additional Source Comments The information contained in this document represents components of the legal health record. It is not the complete legal health record.[facility]
[2025-03-12 17:29] LABS: MANUAL DIFF FLAG NO
[2025-03-12 17:42] LABS: Hematocrit 35.9 % (37.0-47.0); Hemoglobin 10.2 g/dl (12.0-16.0); Imm Gran Abs Auto 0.01 X10*3/uL (0.00-0.03); Imm Gran Pct Auto 0.1 % (0.0-0.4); Lymphocytes Absolute Auto 1.0 X10*3/uL (1.2-4.9); Mean Corpuscular HGB Conc 28.4 g/dl (31.0-35.0); Mean Corpuscular Hemoglobin 23.6 pg (27.0-33.0); Mean Corpuscular Volume 83.1 fL (80.0-98.0); NRBC Abs Auto 0.000 X10*3/uL (0.0-0.012); NRBC Pct Auto 0.0 /100WBC (0.0-0.2); Platelet Count 312 X10*3/uL (160-400); Red Blood Count 4.32 X10*6/uL (4.20-5.50); White Blood Count 7.6 X10*3/uL (4.8-10.8)
[2025-03-12 17:57] LABS: Alanine Aminotransferase 182 U/L (0-31); Albumin Level 4.1 g/dL (3.5-5.0); Alkaline Phosphatase 155 U/L (39-117); Anion Gap 16 (12-20); Aspartate Amino Transferase 141 U/L (5-31); Blood Urea Nitrogen 18 mg/dL (9-16); Calcium 8.7 mg/dL (8.4-10.2); Carbon Dioxide 24 mmol/L (22-29); Chloride 105 mmol/L (96-108); Estimated Glomerular Filt Rate 59; Potassium 4.5 mmol/L (3.3-5.1); Sodium 140 mmol/L (135-145); Total Protein 6.9 g/dL (6.5-8.0)
== END 2025-03-12 13:06 | disposition home or self-care (01) ==
LOC: HO.HKASLDS 13:05
PROVIDERS: PCP Internal Medicine; Visit Provider Student in an Organized Health Care Education/Training Program
DX: M05.9 Rheumatoid arthritis with rheumatoid factor, unspecified (principal)
CPT/HCPCS: 36415; 80053; 85025; 85652; 86140

== ENCOUNTER 2025-03-17 10:04 | Outpatient (AMB) | payer BC, SELFPAY ==
--- NOTE | 2025-03-17 10:30 | A.OFFVIS_ITS ---
Vital Signs 03/17/25 10:34 Height 4 ft 11 in Weight 137 lb 2.04 oz BMI 27.7 BP 152/100 H Blood Pressure Location Lt brachial Position Sitting Pulse 83 Pulse Source Pulse Oximeter Pulse Oximetry (%) 97 Oxygen Delivery Method Room Air Intake Visit Reasons: RA Intake Note: Patient presents for RA follow up. Allergies codeine Allergy (Unknown, Verified 03/17/25 11:46) Rash latex (LATEX) Allergy (Unknown, Verified 03/17/25 11:46) ANGIOEDEMA morphine Allergy (Unknown, Verified 03/17/25 11:46) Vomiting penicillin V Allergy (Unknown, Verified 03/17/25 11:46) Unknown HPI Comments Details: Patient is a 69-year-old female with hypertension, hyperlipidemia, COPD, iron de ficiency anemia, gout (diet managed), polyarticular osteoarthritis, osteoporosis and seropositive rheumatoid arthritis c/b tendon rupture and repair x 2 on the right hand here today for follow up Interval History: Patient last seen 11/18/24 with me - On Xeljanz 11mg daily and alendronate 70mg weekly - complaining of pain to left medial wrist - Also complaining of back pain - No further falls - Received steroid injection to intercarpal joint on the left Today - On Xeljanz 11mg daily and alendronate 70mg weekly - Fell 3 weeks ago, and had trauma to her abdomen falling on a chair - Seen in the ED and was told she has some free flowing fluid concerning for blood - Does have abdominal pain - Of note her LFTs were significantly elevated and she was told to hold her Xeljanz and pravastatin - Left wrist did well after the injection, only had return of pain about 1 week ago - Has a glass of wine on the weekends but not daily - No Tylenol or ibuprofen Rheumatologic History: Seropositive RA ++RF+++CCP dx 2002 MTX-dates unknown Enbrel 08/2015-07/2016 Arava 11/2016- 09/2018 Xeljanz 09/2018- present Osteoporosis on alendronate since December 2020, repeat DEXA 2023 with improvement. Current Rheumatology Medication(s): Xeljanz 11 mg daily Alendronate 70 mg weekly [facility] Medical History Dysphagia Trochanteric bursitis, right hip Generalized osteoarthritis of multiple sites Long-term use of immunosuppressant medication Dyspnea on exertion Seropositive rheumatoid arthritis Cough COPD (chronic obstructive pulmonary disease) Surgical History History of hand surgery History of bunionectomy History of appendectomy Family History Mother HTN (hypertension) Father CVD (cardiovascular disease) Maternal Grandmother Cervical cancer Social History Alcohol intake: current Alcohol intake frequency: holidays/special occasions only Patient Tobacco Use Status: Former Tobacco user Tobacco use type: Cigarette Cigarettes Per Day: 10 Years Smoked: 50 quit 2years ago e-Cigarette/Vaping Use: Never Used Do you have a plan to hurt others: No Plan Current occupational status: retired Current occupation: left handed Review of Systems Narrative Review of Systems Constitutional: Denies fever, chills, weight loss ENT: Denies vision changes, eye pain or eye redness, dental caries, dry mouth GI: Denies nausea, vomiting, diarrhea, abdominal pain, change in BM Pulm: Denies SOB, LOPEZ, hemoptysis, wheezing Cards: Denies chest pain, palpitations Skin: Denies Raynaud's, rash, nail changes, photosensitivity, CIRCUS PERFORMER: Denies headaches, weakness, paresthesias, recurrent falls MSK: as per HPI All other systems reviewed and are unremarkable except noted above Physical Exam Exam Exam: Vital signs reviewed Physical Examination CONSTITUITIONAL Patient alert and cooperative. Well appearing and in no apparent painful distress ABDOMEN No ecchymosis noted Tenderness to palpation even on my palpation especially in her left lower quadrant and right upper quadrant. No hepatomegaly palpated Mass noted in the left lower quadrant, firm non pulsatile MSK Hands * Right Hand: Able to make a fist. No swelling or tenderness to palpation of the MCPs, PIPs or DIPs. * Left Hand: Able to make a fist. No swelling or tenderness to palpation of the MCPs, PIPs or DIPs. * Herbedens nodes noted bilaterally Wrists * Right Wrist: No swelling or TTP * Left Wrist: No swelling. Mild TTP Elbows * Right Elbow: Full ROM. No swelling or TTP. No TTP of the medial epicondyle. No TTP of the lateral epicondyle * Left Elbow: Full ROM. No swelling or TTP. No TTP of the medial epicondyle. No TTP of the lateral epicondyle Shoulders * Right shoulder: Full ROM. No swelling noted. No TTP of the AC joint. No TTP of the subacromial bursa. No TTP of the posterior shoulder * Left shoulder: Full ROM. No swelling noted. No TTP of the AC joint. No TTP of the subacromial bursa. No TTP of the posterior shoulder Knees * Right knee: No swelling noted. No TTP of the knee joint line. No TTP of pes anserine bursa * Left knee: No swelling noted. No TTP of the knee joint line. No TTP of pes anserine bursa. Ankles * Right ankle: Good ankle dorsiflexion and plantar flexion. No swelling. No TTP of the ankle joint * Left ankle: Good ankle dorsiflexion and plantar flexion. No swelling. No TTP of the ankle joint Feet * Right foot: Negative squeeze test * Left foot: Negative squeeze test Tender points? * No tenderness to palpation of the bilateral trapezius, supraspinatus, anterior costochondral junctions, bilateral suboccipital muscle insertions SKIN No rashes Vital Signs: Last Vital Signs Pulse 83 03/17/25 10:34 BP 152/100 H 03/17/25 10:34 Pulse Ox 97 03/17/25 10:34 Oxygen Delivery Method Room Air 03/17/25 10:34 BMI result Body Mass Index 27.7 Results Reviewed Results Reviewed: Laboratory Tests 11/18/24 03/12/25 12:15 13:14 WBC 6.4 7.6 RBC 4.88 4.32 Hgb 13.4 10.2 L D Hct 39.9 35.9 L Plt Count 278 D 312 ESR 20 Sodium 140 Potassium 4.5 Chloride 105 Carbon Dioxide 24 BUN 22 H 18 H Creatinine 0.93 0.94 AST 37 H 141 H ALT 28 182 H C-Reactive Protein 0.60 H 0.53 H Laboratory Tests 11/18/24 12:15 Hepatitis A IgM Ab Nonreactive Hep Bs Antigen Negative Hep Bs Antibody NONREACTIVE Hep B Core Total Ab Nonreactive Hepatitis C Ab (EIA) Nonreactive TB Test (T-Spot) Com Negative DEXA 01/2021 FINDINGS: AP SPINE L2-L4 (excluding L1): The data of L1-L4 has been changed to exclude the L1 vertebral body, because degenerative changes at this level may cause overestimation of lumbar spine density. BMD 1.027 g/cm2, Z-score 1.9, T-score -0.2, normal. LEFT FEMUR, NECK: BMD 0.640 g/cm2, Z-score -0.1, T-score -1.9, osteopenia. LEFT FEMUR, TOTAL: BMD 0.888 g/cm2, Z-score 1.1, T-score -0.4, normal Assessment & Plan Assessment & Plan (1) Transaminitis: Code(s): R74.01 - Elevation of levels of liver transaminase levels Plan: #Transaminitis Patient is a 69-year-old female with rheumatoid arthritis here today for follow up. Routine blood work showed significant transaminitis compared to before. When discussed with the patient she did have a fall off a chair with trauma to her abdomen. And today on exam her abdomen is tender even to light palpation and she does have a firm tender non pulsatile mass in the left lower quadrant. Concern for intra-abdominal hemorrhage especially since her hemoglobin has fallen 2 g. Send to the emergency department for immediate evaluation Plan - Sent to ED - Called ED and spoke with attending physician about the case (2) Seropositive rheumatoid arthritis: Comment: ++RF+++CCP dx 2002 MTX-dates unknown Enbrel 08/2015-07/2016 Arava 11/2016- 09/2018 Xeljanz 09/2018- present Code(s): M05.9 - Rheumatoid arthritis with rheumatoid factor, unspecified Category: Medical Plan: #Seropositive RA Patient is a 69-year-old female with seropositive rheumatoid arthritis here today for follow up. RA currently under control with only 1 mildly tender joint in the left wrist. We are holding Xeljanz due to her significantly elevated LFTs. We will continue to hold until after evaluation by the ED Plan - Xeljanz 11mg daily on hold - RTC 4 months - Labs before visit: CBC, CMP, ESR, CRP (3) Age related osteoporosis: Comment: DEXA 01/2021: AP spine -0.6, Left femur neck -2.2, Left femur total -1.9. FRAX 26.4/5.3 DEXA 10/2023: AP spine -0.2, Left femur neck -1.9, Left femur total -0.4 on alendronate since December 2020, repeat DEXA 2023 with improvement. Code(s): M81.0 - Age-related osteoporosis without current pathological fracture Category: Medical Qualifiers: Presence of current pathological fracture: without current pathological fracture Qualified Code(s): M81.0 - Age-related osteoporosis without current pathological fracture Plan: #Osteoporosis Patient with osteoporosis on alendronate with improvement in DEXA done 10/2023. Had a fall in fall 2023 with subsequent nondisplaced fracture to the right hand. Despite the improved bone density she did sustain a fracture after fall. We will continue her alendronate at this time given that there is improvement in her DEXA and after the fall she did not sustain a fracture to her spine or her femur. We will continue the alendronate until 2025 at which point we will offer her a drug holiday. Plan - Alendronate 70mg weekly - f/u Vitamin D - rpt DEXA 2025 and if stable can offer drug holiday (4) Generalized osteoarthritis of multiple sites: Code(s): M15.9 - Polyosteoarthritis, unspecified Category: Medical Plan: #Polyarticular OA Patient with polyarticular osteoarthritis currently stable. She takes tramadol for breakthrough pains and we will refill this today. (5) intermediate card tender (current) use of janus kinase inhibitor: Code(s): Z79.622 - assisted (current) use of Janus kinase inhibitor Plan: #Long-term Use of PEDRO inhibitor Xeljanz Discussed with patient the benefits and risks of PEDRO inhibitors for the management of the rheumatic condition Benefits include reduce pain, maintenance of remission and reduction of flares Risks include thromboembolic events, skin cancer and nonmelanoma skin cancers, other forms of cancer, cardiovascular alcohol and mortality Advise patient that they are to hold the medication and for up to 1 week after a febrile illness or an open skin wound (6) Encounter for ongoing osteoporosis therapy, bisphosphonates: Code(s): M81.0 - Age-related osteoporosis without current pathological fracture; Z79.83 - assisted (current) use of bisphosphonates Plan: #Long-term Use of Bisphosphonates Risks and benefits of bisphosphonates in the management of osteoporosis Benefits include improved bone density, decreased fracture risk Risks include atypical femoral fractures, GI upset, esophageal strictures Contraindicated in patients with a creatinine clearance < 30 to 35 ml/min Keep vitamin-D at least 35 ng/mL Plan I spent 45 minutes reviewing the record and labs, taking a history, examining the patient, discussing the treatment plan, ordering diagnostic work up, contacting emergency department and documenting in the medical record Orders: Orders Erythrocyte Sedimentation Rate 4 Months Z79.899 - Other joint terminal attack controller (current) drug therapy Complete Blood Count Auto Diff 4 Months Z79.899 - Other custodial (current) drug therapy Comprehensive Met. Panel 4 Months Z79.899 - Other joint terminal attack controller (current) drug therapy C Reactive Protein 4 Months Z79.899 - Other joint terminal attack controller (current) drug therapy Coding Level of Care Code Est Pt Level 5 (15643) Complex EM visit Add On G2211 Diagnoses Transaminitis R74.01 Seropositive rheumatoid arthritis M05.9 Age-related osteoporosis without current pathological fracture M81.0 Presence of current pathological fracture: without current pathological fracture Generalized osteoarthritis of multiple sites M15.9 intermediate card tender (current) use of janus kinase 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
[2025-03-17 10:34] VITALS: BP 152/100; PULSE 83; O2SAT 97; BMI 27.7
--- OUTSIDE RECORDS SUMMARY | 2025-03-17 11:35 | XMS_ITS | Clinical Summary ---
Author Organization [facility] Address [address] [address] Phone Care Team Providers Care General Activities Therapist Name Role Phone Unavailable Primary Care Provider [...] VACCINES (50+ years) (2 of 2 - PCV20 or PCV21) 12/25/2019 12/24/2018 INFLUENZA VACCINE (#1) 2024 COVID-19 VACCINE (3 - 2024-2 6 season) 2025 08/01/2020, 07/11/2020 RSV VACCINE (1 - 1-dose 75+ series) 2028 HEPATITIS A VACCINES Aged Out No long er eligible based on patient's age to complete this topic HIB VACCINES Aged Out No longer eligi ble based on patient's age to complete this topic IPV VACCINES Aged Out No longer eligi ble [...] It is not the complete legal health record.[facility]
== END 2025-03-17 11:08 | disposition home or self-care (01) ==
LOC: HO.RHES 10:04
PROVIDERS: PCP Internal Medicine; Visit Provider Student in an Organized Health Care Education/Training Program
DX: M05.79 Rheumatoid arthritis with rheumatoid factor of multiple sites without organ or systems involvement (principal); R74.01 Elevation of levels of liver transaminase levels; M81.0 Age-related osteoporosis without current pathological fracture; Z79.622 Long term (current) use of Janus kinase inhibitor; Z79.83 Long term (current) use of bisphosphonates
CPT/HCPCS: 99215

== ENCOUNTER 2025-03-17 11:28 | Emergency (ER) | payer BC, SELFPAY ==
--- NOTE | ~2025-03-17 | CT_ITS ---
CLINICAL HISTORY: LLQ pain Exam: Contrast-enhanced CT abdomen and pelvis with multiplanar reformats. Comparison: None. Findings: CT abdomen: Lung bases are clear. A moderate-sized hiatal hernia is present. Liver is free of focal lesions and ductal dilatation. Gallbladder is unremarkable. Spleen is unremarkable. Pancreas and adrenal glands appear unremarkable. Right kidney reveals a subcentimeter lower pole hypodensity (4; 164), too small to characterize although likely small cyst. Kidneys otherwise unremarkable. No free intraperitoneal fluid or retroperitoneal masses or adenopathy. Abdominal aorta reveals relative ectasia of the infrarenal abdominal aorta measuring up to 2.5 cm diameter (4; 234). There is moderate calcific athero sclerosis. Bowel loops reveal colonic diverticulosis, without CT evidence of diverticulitis. The appendix is surgically absent. CT pelvis: Uterus and adnexal structures appear unremarkable. Urinary bladder is free of filling defects. No pelvic masses, fluid or adenopathy. Osseous structures reveal no destructive osseous lesions. Impression: 1. No acute abnormality or CT explanation for reported history of left lower quadrant pain. Specifically, colonic diverticulosis is present, without CT evidence of diverticulitis. This document has been electronically signed by: Toi Ruiz MD on 03/17/2025 19:40:10
[2025-03-17 11:40] VITALS: BP 153/70; PULSE 80; RESP 18; TEMP 36.6; O2SAT 99; BMI 27.5
--- NOTE | 2025-03-17 11:43 | ED.GENADULT ---
HPI - General Adult General Chief complaint: Recheck/Abnormal Lab/Rx Stated complaint: blood lvls are low, liver lvls are high per pc Time Seen by Provider: 03/17/25 17:21 Source: patient, RN notes reviewed and old records reviewed Mode of arrival: ambulatory Limitations: no limitations History of Present Illness ED Provider: Meagan HPI narrative: 69-year-old female with a past medical history significant for iron-deficiency anemia, gout, osteoporosis, rheumatoid arthritis, COPD not on dependent oxygen presents for evaluation of abnormal liver enzymes. ? The patient has suffered a fall about a month ago on 02/17/2025. She was seen at [facility] and ultimately had trauma scans of her head, cervical spine, chest and abdomen pelvis. The scans did not show any significant traumatic injury. The patient is told that she has a contusion of the left lower abdomen. She reports that she saw her library aide 5 days ago had outpatient labs. She was told that her liver enzymes were elevated and she should come to the ER for evaluation pain She continues to complain of left lower abdominal pain, she has no right upper quadrant abdominal pain She also endorses dizziness, weakness which she has had in the past with her anemia. She reports that she has not any black or bloody stool Related Data Home Medications ?Medication ?Instructions ?Recorded ?Confirmed lorazepam 0.5 mg tablet 0.5 mg PO BID PRN anxiety 03/30/20 11/18/24 omeprazole 20 mg capsule,delayed 20 mg PO DAILY 03/30/20 11/18/24 release pravastatin 40 mg tablet 40 mg PO DAILY 03/30/20 11/18/24 ascorbate calcium (vitamin C) 500 500 mg PO DAILY 06/05/23 11/18/24 mg tablet furosemide 20 mg tablet 20 mg PO DAILY 06/05/23 11/18/24 lisinopril 5 mg tablet 5 mg PO DAILY 06/05/23 11/18/24 venlafaxine 75 mg capsule,extended 75 mg PO DAILY 03/04/24 11/18/24 release 24 hr doxycycline monohydrate 100 mg 100 mg PO BID 03/26/24 11/18/24 capsule ferrous sulfate 325 mg (65 mg 325 mg PO DAILY 07/22/24 11/18/24 iron) tablet (Feosol) Previous Rx's ?Medication ?Instructions ?Recorded cholecalciferol (vitamin D3) 50 50 mcg PO DAILY #90 caps 06/12/22 mcg (2,000 unit) capsule albuterol sulfate 90 mcg/actuation 2 puff inhalation Q4-6H PRN 07/06/22 aerosol inhaler shortness of breath or wheezing 30 days #8.5 grams Xeljanz XR 11 mg tablet,extended 11 mg PO DAILY #30 tabs 07/22/24 release (tofacitinib) alendronate 70 mg tablet 70 mg PO QWEEK #12 tabs 07/22/24 fluticasone furoate 100 1 inh inhalation DAILY COPD 30 08/22/24 mcg-vilanterol 25 mcg/dose days #60 ea inhalation powder (Breo Ellipta) tramadol 50 mg tablet 100 mg (2 x 50 mg) PO BID PRN pain 10/21/24 #120 tabs Allergies Allergy/AdvReac Type Severity Reaction Status Date / Time codeine Allergy Unknown Rash Verified 03/17/25 11:46 latex (LATEX) Allergy Unknown ANGIOEDEMA Verified 03/17/25 11:46 morphine Allergy Unknown Vomiting Verified 03/17/25 11:46 penicillin V Allergy Unknown Unknown Verified 03/17/25 11:46 Review of Systems Constitutional: Constitutional: Denies body ache(s), Denies chills, Denies fever(s), Denies headache(s) and Reports weakness Eyes: Eyes: Denies blurry vision ENT: Reports dizziness and Denies headache(s) Cardiovascular: Cardiovascular: Denies chest pain and Denies dyspnea on exertion Respiratory: Respiratory: Denies cough and Denies dyspnea on exertion Gastrointestinal: Gastrointestinal: Reports abdominal pain, Denies nausea and Denies vomiting Musculoskeletal: Musculoskeletal: Denies back pain Integumentary/Breasts: Skin/Breast: Denies rash Neurologic: Reports dizziness, Denies headache(s) and Reports weakness PMFSH Past Medical History Medical History Dysphagia Trochanteric bursitis, right hip Generalized osteoarthritis of multiple sites Long-term use of immunosuppressant medication Dyspnea on exertion Seropositive rheumatoid arthritis Cough COPD (chronic obstructive pulmonary disease) Surgical History History of hand surgery History of bunionectomy History of appendectomy Family History Family History Mother HTN (hypertension) Father CVD (cardiovascular disease) Maternal Grandmother Cervical cancer Social History Social History Alcohol intake: current Alcohol intake frequency: holidays/special occasions only Patient Tobacco Use Status: Former Tobacco user Tobacco use type: Cigarette Cigarettes Per Day: 10 Years Smoked: 50 quit 2years ago Smoked in Last 30 Days: No e-Cigarette/Vaping Use: Never Used Use of substances other than those prescribed or required for medical reasons: No Advance Directives: No Advance Directives Information Provided: Yes Do you have a plan to hurt others: No Plan Current occupational status: retired Current occupation: left handed Physical Exam ED Vital Signs: Vital Signs - 24 hr 03/17/25 11:40 03/17/25 18:18 Temperature 97.9 F Pulse Rate 80 73 Respiratory Rate 18 16 Blood Pressure 153/70 H 145/73 H Pulse Oximetry 99 97 Oxygen Delivery Method Room Air Room Air BMI result Body Mass Index 27.5 Const General: healthy appearing, comfortable, no acute distress, alert and awake Nutritional Appearance: well nourished Orientation/consciousness: patient oriented x3 HENMT Head: Yes normocephalic and Yes atraumatic Eyes Eyelids: Yes eyelids normal Conjunctivae: conjunctivae normal Sclerae: sclerae normal Corneas: corneas normal Pupils: Equal, round and reactive pupils present EOM: EOMs intact bilaterally Neck Neck: Yes full ROM Resp Effort & Inspection: normal respiratory effort, able to speak in complete sentences and not labored GI Other: There is a 1 x 3 cm linear, palpable, firm mass in the left lower quadrant abdominal wall. No overlying skin changes, no erythema, wounds or ecchymosis. Inspection: No distended Palpation (GI): Soft to palpation, not firm, Tenderness to palpation present (GI) in the LLQ, no guarding and not rigid Skin General skin exam: elasticity normal Neuro General: patient oriented x3 Cranial nerves: Yes Equal, round and reactive pupils present and Yes Bilaterally intact EOM present Cognition (Neuro): normal cognition Extrem Other: Moving all extremities well without any obvious deformities Course Course Course Narrative: This is a rapid medical exam performed by Theo Gabriel NP: Additional HPI, ROS, PE not included below will be deferred to primary provider. Patient is a 69y/o F presenting to the ED with complaint of abnormal labs. States library aide called here regarding labs drawn on 03/12. Elevated LFTs, alk phos, anemia. Had a fall 3 weeks ago, found to have abdominal hematoma. Plan: labs, UA Medications Administered Discontinued Medications Generic Name Dose Route Start Last Admin Trade Name Mohan PRN Reason Stop Dose Admin Iohexol 100 ml 03/17/25 18:51 03/17/25 18:51 Iohexol 350 Mg/Ml 100 Ml Infus..Btl IV 03/17/25 18:52 85 ml ONCE ONE Administration Medical Decision Making Medical Decision Making [facility] Narrative: 69-year-old female presents for evaluation of abnormal liver enzymes and continued abdominal pain. She had labs on 03/12/2025 which showed an AST of 141, ALT of 182 alk phos of 155. The patient reports that she drinks wine on Sundays with dinner only no other alcohol use pain. She denies any Tylenol use. She has no right upper quadrant abdominal pain or tenderness on exam. She would have a palpable mass in the left lower abdominal wall. I feel this is most consistent with a hematoma given her recent trauma. She has a history of iron-deficiency anemia in his labs are consistent with a baseline. Her hemoglobin of 10.9 is around her baseline of 11 injury was 10.25 days ago. Platelet count is within normal limits. I suspect that her liver enzyme increase was likely due to a viral illness. Given that her labs seem to be trending down words, I anticipate discharge home unless there is a significant finding on her CT scan. This was ordered due to the palpable mass continued abdominal pain Differential Diagnosis Differential Diagnoses: The differential diagnosis associated with the presentation includes Abdominal wall hematoma Abdominal wall contusion Colitis Diverticulitis Acute hepatitis Liver mass Admission/Observation Consideration of admission/observation: Escalation of care including admission/observation considered Lab Data [facility] Lab Attestation statement: I reviewed the patient's lab results. As above 03/17/25 17:49 03/17/25 17:49 Labs: Lab Results 03/17/25 Range/Units 17:49 WBC 7.3 (4.8-10.8) X10*3/uL RBC 4.47 (4.20-5.50) X10*6/uL Hgb 10.9 L (12.0-16.0) g/dl Hct 35.4 L (37.0-47.0) % MCV 79.2 L (80.0-98.0) fL MCH 24.4 L (27.0-33.0) pg MCHC 30.8 L (31.0-35.0) g/dl RDW 22.0 H (11.0-16.0) % Plt Count 238 (160-400) X10*3/uL MPV 9.7 (9.4-12.3) fL Immature Gran % (Auto) 0.3 (0.0-0.4) % Neut % (Auto) 55.1 (45-73) % Lymph % (Auto) 29.9 (20-40) % Graves % (Auto) 10.0 (2-11) % Eos % (Auto) 3.6 (0-4) % Baso % (Auto) 1.1 (0-2) % Lymph # (Auto) 2.2 (1.2-4.9) X10*3/uL Graves # (Auto) 0.7 (0.1-1.2) X10*3/uL Eos # (Auto) 0.3 (0.0-0.4) X10*3/uL Baso # (Auto) 0.1 (0.0-0.2) X10*3/uL Abs Immat Gran (auto) 0.02 (0.00-0.03) X10*3/uL Absolute Neuts (auto) 4.0 (2.0-8.3) x10*3/uL Absolute Nucleated RBC 0.000 (0.0-0.012) X10*3/uL Nucleated RBC % (auto) 0.0 (0.0-0.2) /100WBC PT 11.5 (11.2-13.5) SEC INR 0.9 (0.9-1.1) Sodium 134 L (135-145) mmol/L Potassium 3.9 (3.3-5.1) mmol/L Chloride 102 (96-108) mmol/L Carbon Dioxide 24 (22-29) mmol/L Anion Gap 12 (12-20) BUN 18 H (9-16) mg/dL Creatinine 0.89 (0.5-1.4) mg/dL Estim Creat Clear Calc 46.2 Estimated GFR > 60 Random Glucose 101 (60-115) mg/dL Calcium 9.5 D (8.4-10.2) mg/dL Magnesium 2.0 (1.6-2.6) mg/dL Total Bilirubin 0.3 (0.0-1.0) mg/dL Direct Bilirubin 0.1 (0.0-0.5) mg/dL AST 23 (5-31) U/L ALT 39 H (0-31) U/L Alkaline Phosphatase 90 (39-117) U/L Total Protein 6.9 (6.5-8.0) g/dL Albumin 4.1 (3.5-5.0) g/dL Acetaminophen < 3 (<30) mcg/mL Independent Interpretation I performed an independent interpretation of an: CT Scan Interpretation: Cutaneous fluid collection in the left mid abdomen. Radiology Impression Discussion of test interpretation with radiology: I have reviewed the radiologist's reading. Radiologist Impression: Findings: CT abdomen: Lung bases are clear. A moderate-sized hiatal hernia is present. Liver is free of focal lesions and ductal dilatation. Gallbladder is unremarkable. Spleen is unremarkable. Pancreas and adrenal glands appear unremarkable. Right kidney reveals a subcentimeter lower pole hypodensity (4; 164), too small to characterize although likely small cyst. Kidneys otherwise unremarkable. No free intraperitoneal fluid or retroperitoneal masses or adenopathy. Abdominal aorta reveals relative ectasia of the infrarenal abdominal aorta measuring up to 2.5 cm diameter (4; 234). There is moderate calcific athero sclerosis. Bowel loops reveal colonic diverticulosis, without CT evidence of diverticulitis. The appendix is surgically absent. CT pelvis: Uterus and adnexal structures appear unremarkable. Urinary bladder is free of filling defects. No pelvic masses, fluid or adenopathy. Osseous structures reveal no destructive osseous lesions. Impression: 1. No acute abnormality or CT explanation for reported history of left lower quadrant pain. Specifically, colonic diverticulosis is present, without CT evidence of diverticulitis. This document has been electronically signed by: Toi Ruiz MD on 03/17/2025 19:40:10 Discharge Plan Discharge Clinical Impression: Abdominal pain Patient Disposition: Home, Self-Care Instructions: Abdominal Pain (ED) Additional Instructions: Your liver enzymes have almost all returned to normal. It is possible that you have a viral illness that was contributing to the elevation of your liver enzymes. Your blood counts do show a mild anemia, your hemoglobin today was 10.9 which is improved from 10.2 [address] days ago. Your CT scan shows a small hematoma but no other significant issues warranting treatment Follow up with your primary doctor next week as planned Prescriptions: No Action cholecalciferol (vitamin D3) 50 mcg (2,000 unit) capsule 50 mcg PO DAILY Qty: 90 1RF fluticasone furoate-vilanterol [Breo Ellipta] 100-25 mcg/dose blister with device 1 inh inhalation DAILY 30 Days Qty: 60 5RF tramadol 50 mg tablet 100 mg PO BID PRN (Reason: pain) Qty: 120 5RF pravastatin 40 mg tablet 40 mg PO DAILY omeprazole 20 mg capsule,delayed release(DR/EC) 20 mg PO DAILY lorazepam 0.5 mg tablet 0.5 mg PO BID PRN (Reason: anxiety) albuterol sulfate 90 mcg/actuation HFA aerosol inhaler 2 puff inhalation Q4-6H PRN (Reason: shortness of breath or wheezing) 30 Days Qty: 8.5 5RF furosemide 20 mg tablet 20 mg PO DAILY lisinopril 5 mg tablet 5 mg PO DAILY ascorbate calcium (vitamin C) 500 mg tablet 500 mg PO DAILY venlafaxine 75 mg capsule,extended release 24hr 75 mg PO DAILY ferrous sulfate [Feosol] 325 mg (65 mg iron) tablet 325 mg PO DAILY Rx Instructions: Patient takes 2 pills daily alendronate 70 mg tablet 70 mg PO QWEEK Qty: 12 1RF Rx Instructions: Take 1 tab once weekly, 1st thing in the morning, on an empty stomach, with a large glass of water (at least 6 oz) and stay upright for 30 minutes Xeljanz XR 11 mg tablet extended release 24 hr 11 mg PO DAILY Qty: 30 4RF doxycycline monohydrate 100 mg capsule 100 mg PO BID Print Language: Citizen [place]
--- NOTE | 2025-03-17 12:15 | MHC.EDTECH ---
Addendum entered by Margarita Barahona 03/17/25 12:15: Pt difficult stick. Original Note: Attempted to obtain labs in triage 2 times. PT difficult de
[2025-03-17 17:55] LABS: MANUAL DIFF FLAG NO
[2025-03-17 18:00] LABS: Hematocrit 35.4 % (37.0-47.0); Hemoglobin 10.9 g/dl (12.0-16.0); Imm Gran Abs Auto 0.02 X10*3/uL (0.00-0.03); Imm Gran Pct Auto 0.3 % (0.0-0.4); Lymphocytes Absolute Auto 2.2 X10*3/uL (1.2-4.9); Mean Corpuscular HGB Conc 30.8 g/dl (31.0-35.0); Mean Corpuscular Hemoglobin 24.4 pg (27.0-33.0); Mean Corpuscular Volume 79.2 fL (80.0-98.0); NRBC Abs Auto 0.000 X10*3/uL (0.0-0.012); NRBC Pct Auto 0.0 /100WBC (0.0-0.2); Platelet Count 238 X10*3/uL (160-400); Red Blood Count 4.47 X10*6/uL (4.20-5.50); White Blood Count 7.3 X10*3/uL (4.8-10.8)
[2025-03-17 18:09] LABS: INTERNATIONAL NORM RATIO 0.9 (0.9-1.1); Prothrombin Time 11.5 SEC (11.2-13.5)
[2025-03-17 18:14] LABS: Acetaminophen LAB < 3 mcg/mL (<30); Alanine Aminotransferase 39 U/L (0-31); Albumin Level 4.1 g/dL (3.5-5.0); Alkaline Phosphatase 90 U/L (39-117); Anion Gap 12 (12-20); Aspartate Amino Transferase 23 U/L (5-31); Blood Urea Nitrogen 18 mg/dL (9-16); Calcium 9.5 mg/dL (8.4-10.2); Carbon Dioxide 24 mmol/L (22-29); Chloride 102 mmol/L (96-108); Creatinine Clr Calc Pharmacy 46.2; Estimated Glomerular Filt Rate > 60; Magnesium 2.0 mg/dL (1.6-2.6); Potassium 3.9 mmol/L (3.3-5.1); Sodium 134 mmol/L (135-145); Total Protein 6.9 g/dL (6.5-8.0)
[2025-03-17 18:18] VITALS: BP 145/73; PULSE 73; RESP 16; O2SAT 97
[2025-03-17] MEDS: iohexoL 350 MG/ML 100 ML INFUS..BTL IV (18:51)
[2025-03-17 20:06] VITALS: BP 139/60; PULSE 70; TEMP 36.4; O2SAT 97
[2025-03-17 20:18] VITALS: BP 139/60; PULSE 70; RESP 16; TEMP 36.4; O2SAT 97
[2025-03-18 04:38] LABS: HBS Num1 0.41 mIU/mL (0-7.99); HBc Num1 0.10 S/CO (0.00-0.79); HBsAGNum1 0.47 S/CO (0.00-0.99); Hepatitis A Antibody IgM 0.17 Index (0-0.79); Hepatitis B Surface Antigen Negative (Negative); ~HepC Num1 0.13 S/CO (0.00-0.79); ~Hepatitis A Antibody IgM Nonreactive (Nonreactive); ~Hepatitis B Surface Antibody NONREACTIVE (Nonreactive); ~Hepatitis C Antibody Nonreactive (Nonreactive)
== END 2025-03-17 20:18 | disposition home or self-care (01) ==
PROVIDERS: Physician Assistant; Registered Nurse Emergency; Emergency Provider Emergency Medicine; PCP Internal Medicine
DX: R10.32 Left lower quadrant pain (principal); J44.9 Chronic obstructive pulmonary disease, unspecified; Z87.891 Personal history of nicotine dependence; R79.89 Other specified abnormal findings of blood chemistry
CPT/HCPCS: 36415; 74177; 80048; 80076; 80143; 83735; 85025; 85610; 86704; 86706; 86709; 86803; 87340; 99284; 99285; Q9967

== ENCOUNTER → 2025-03-17 17:56 | Outpatient (BNV) | payer BC, SELFPAY | PROVIDERS: Emergency Provider Emergency Medicine; PCP Internal Medicine; Visit Provider Radiology Diagnostic Radiology | DX: K57.30 Diverticulosis of large intestine without perforation or abscess without bleeding (principal) | CPT/HCPCS: 74177 ==